=== PATIENT | male | born 1965 | race Caucasian/White ===

== ENCOUNTER → 2020-09-21 | Outpatient (CLI) | payer BC ==
--- NOTE | 2020-09-21 10:08 | XR ---
EXAMINATION TYPE: XR chest 2V DATE OF EXAM: 09/21/2020 COMPARISON: NONE HISTORY: Chest pain TECHNIQUE: Frontal and lateral views of the chest are obtained. FINDINGS: There is no focal air space opacity. No evidence for pneumothorax. No pleural effusion. The cardiac silhouette size is within normal limits. The osseous structures are grossly intact. IMPRESSION: 1. No acute cardiopulmonary process.
--- NOTE | 2020-09-22 12:27 | P.STRESS ---
- Stress Test Note Stress Test Results/Findings: Exam Performed: stress test Exam Date: 09/21/20 Reason for Exam: Shortness of breath Height: 6 ft 2 in Weight: 102.058 kg Protocol: Guillaume Stage: 4 Duration of Exercise: 9:10 Resting Heart Rate: 60 Resting Blood Pressure: 124/82 Maximum Achieved Heart Rate: 126 Maximum Achieved Blood Pressure: 212/84 85% PMHR: 140 100% PMHR: 165 METS: 10.7 Technologist Comment: Stress Test Results/Findings: Baseline heart rate 60 beats a minute, Baseline blood pressure 124/82 mmHg Baseline twelve-lead EKG showed sinus rhythm normal OR narrow QRS normal ST segments He exercised on a Guillaume protocol for 9 minutes, 10 seconds achieving a peak heart rate 126 beats a minute Hypertensive response to exercise. Peak blood pressure 241/102 mmHg He will short of breath at peak exercise No ECG and so ischemia or arrhythmia up until peak exercise In recovery he had asymmetric T-wave inversions with 0.5-[address] depression Impression Good exercise capacity Abnormal ECG response during recovery Asymmetric T-wave inversions with 0.5-[address] depression corresponds to elevations in blood pressure with exercise
== END | disposition home or self-care (01) ==
LOC: RADNMMAIN 08:22
PROVIDERS: ATTEND Family Medicine
DX: R06.02 Shortness of breath (principal)
CPT/HCPCS: 71046; 93017

== ENCOUNTER 2024-06-28 21:09 | Inpatient (IN) | payer BC ==
--- NOTE | 2024-06-28 22:03 | ED ---
Abdominal Pain HPI - General Chief Complaint: Abdominal Pain Stated Complaint: Abd Pain Time Seen by Provider: 06/28/24 21:30 Source: patient, RN notes reviewed Mode of arrival: wheelchair Limitations: no limitations - History of Present Illness Initial Comments: This is a 59-year-old male who presents to the emergency department for abdominal pain. Patient reports lower abdominal pain starting 2 to 3 days ago. States that since then the pain seems to be getting worse. States that it is in the lower abdomen and on both sides. Does not believe that one side is any worse than the other. He had some diarrhea initially, but states that it is not severe. Denies any nausea or vomiting. States that the only time he has had pain this severe was when he had kidney stones, but states that this does not feel like kidney stone pain. Denies any fevers or chills. MD Complaint: abdominal pain - Related Data Previous Rx's Medication Instructions Recorded Tamsulosin HCl [Flomax] 0.4 mg PO DAILY 30 Days cap 01/18/14 Allergies Allergy/AdvReac Type Severity Reaction Status Date / Time iodine Allergy Anaphylaxis Verified 06/28/24 21:17 shellfish derived Allergy Rash/Hives Verified 06/28/24 21:17 Review of Systems ROS Statement: Those systems with pertinent positive or pertinent negative responses have been documented in the HPI. ROS Other: All systems not noted in ROS Statement are negative. Past Medical History Past Medical History: Hypertension Additional Past Medical History / Comment(s): kidney stones History of Any Multi-Drug Resistant Organisms: None Reported Past Surgical History: Orthopedic Surgery Additional Past Surgical History / Comment(s): DENTAL, R hand surgery Past Anesthesia/Blood Transfusion Reactions: No Reported Reaction Additional Past Anesthesia/Blood Transfusion Reaction / Comment(s): never had blood transfusion Past Psychological History: No Psychological Hx Reported Smoking Status: Current every day smoker Past Alcohol Use History: Occasional Past Drug Use History: None Reported General Exam Limitations: no limitations General appearance: alert, in no apparent distress Head exam: Present: atraumatic, normocephalic, normal inspection Respiratory exam: Present: normal lung sounds bilaterally. Absent: respiratory distress, wheezes, rales, rhonchi, stridor Cardiovascular Exam: Present: regular rate, normal rhythm, normal heart sounds. Absent: systolic murmur, diastolic murmur, rubs, gallop, clicks GI/Abdominal exam: Present: soft, tenderness (Lower abdomen), normal bowel sounds. Absent: distended Neurological exam: Present: alert, oriented X3, CN II-XII intact Psychiatric exam: Present: normal affect, normal mood Skin exam: Present: warm, dry, intact, normal color. Absent: rash Course Vital Signs 06/28/24 06/28/24 06/28/24 21:13 22:12 22:47 Temperature 97.9 F 98.5 F Pulse Rate 97 96 80 Respiratory 18 18 17 Rate Blood Pressure 111/67 108/60 120/63 O2 Sat by Pulse 97 97 97 Oximetry 06/29/24 00:00 Temperature Pulse Rate 77 Respiratory 19 Rate Blood Pressure 143/77 O2 Sat by Pulse 96 Oximetry Medical Decision Making - Medical Decision Making This is a 59-year-old male who presents to the emergency department for abdominal pain. Was pt. sent in by a medical professional or institution? @ -No Did you speak to anyone other than the patient for history? @ -No Did you review nursing and triage notes? @ -Yes, and I agree, it is accurate with regards to the patient's symptoms. Were old charts reviewed? @ -No Differential Diagnosis? @ -Differential Abdominal Pain Men: Appendicitis, cholecystitis, diverticulosis, ischemic bowel, pancreatitis, hepatitis, UTI, gastroenteritis, AAA, incarcerated hernia, bowel obstruction, constipation, inflammatory bowel, hepatitis, peptic ulcer disease, splenic infarction, perforated viscus, testicular torsion, this is not meant to be an all-inclusive list EKG interpreted by me (3pts min.)? @ -EKG interpreted by me demonstrating the following: Sinus rhythm. Ventricular rate 78 bpm, ME interval 151 ms, QRS duration 126 ms, QTc 379 ms. X-rays interpreted by me (1pt min.)? @ -Not obtained CT interpreted by me (1pt min.)? @ -CT scan of the abdomen and pelvis obtained. My interpretation identifies perforated sigmoid diverticulitis U/S interpreted by me (1pt. min.)? @ -Not obtained What testing was considered but not performed? (CT, X-rays, U/S, labs)? Why? @ -None What meds were considered but not given? Why? @ -None Did you discuss the management of the patient with other professionals? @ -Yes, Dr. Vasquez, who accepts the patient for admission. Did you reconcile home meds? @ -No Was smoking cessation discussed for >3mins.? @ -No Was critical care preformed (if so, how long)? @ -No Were there social determinants of health that impacted care today? How? (Homelessness, low income, unemployed, alcoholism, drug addiction, transportation, low edu. Level, literacy, decrease access to med. care, nursing home, rehab)? @ -No Was there de-escalation of care discussed even if they declined? (Discuss DNR or withdrawal of care, Hospice)? @ -No What co-morbidities impacted this encounter? (DM, HTN, Smoking, COPD, CAD, Cancer, CVA, Hep., AIDS, mental health diagnosis, sleep apnea, morbid obesity)? @ -None Was patient admitted / discharged? @ -Admitted. Lab work demonstrates leukocytosis with a white blood cell count of 19.1 and signs of dehydration. Urinalysis negative for signs of infection. CT scan of the abdomen and pelvis demonstrates perforated sigmoid diverticulitis with moderate free air at the perforation site. Case discussed with Dr. Vasquez, general surgery, who advised admission with IV antibiotics and tentative plan for surgical intervention this morning. Blood cultures were obtained and he was started on Zosyn and Flagyl. He had been given 2 L of IV fluids initially and was started on maintenance fluids as well. Patient also kept n.p.o. in anticipation of surgical intervention. He was admitted to surgery for perforated sigmoid diverticulitis. Medicine consulted for medical management and infectious disease consulted as well. Case discussed with ED att ending Dr. Hathaway. Undiagnosed new problem with uncertain prognosis? @ -None Drug Therapy requiring intensive monitoring for toxicity (Heparin, Nitro, Insulin, Cardizem)? @ -None Were any procedures done? @ -None Diagnosis/symptom? @ -Perforated sigmoid diverticulitis Acute, or Chronic, or Acute on Chronic? @ -Acute Uncomplicated (without systemic symptoms) or Complicated (systemic symptoms)? @ -Complicated Side effects of treatment? @ -None Exacerbation, Progression, or Severe Exacerbation] @ -Not applicable Poses a threat to life or bodily function? @ -Yes, can lead to septic shock and . - Lab Data Result diagrams: 06/28/24 21:52 06/28/24 21:52 Lab Results 01/13/25 01/13/25 01/13/25 Range/Units 21:52 21:52 21:52 WBC 19.1 H (3.8-10.6) k/uL RBC 5.02 (4.30-5.90) m/uL Hgb 15.6 (13.0-17.5) gm/dL Hct 46.7 (39.0-53.0) % MCV 93.1 (80.0-100.0) fL MCH 31.0 (25.0-35.0) pg MCHC 33.3 (31.0-37.0) g/dL RDW 12.9 (11.5-15.5) % Plt Count 246 (150-450) k/uL MPV 7.2 Neutrophils % 86 % Lymphocytes % 9 % Monocytes % 4 % Eosinophils % 0 % Basophils % 0 % Neutrophils # 16.4 H (1.3-7.7) k/uL Lymphocytes # 1.6 (1.0-4.8) k/uL Monocytes # 0.7 (0-1.0) k/uL Eosinophils # 0.0 (0-0.7) k/uL Basophils # 0.1 (0-0.2) k/uL Sodium 136 L (137-145) mmol/L Potassium 4.2 (3.5-5.1) mmol/L Chloride 104 (98-107) mmol/L Carbon Dioxide 17 L (22-30) mmol/L Anion Gap 15 mmol/L BUN 27 H (9-20) mg/dL Creatinine 1.26 H (0.66-1.25) mg/dL Est GFR (CKD-EPI)AfAm 72 (>60 ml/min/1.73 sqM) Est GFR (CKD-EPI)NonAf 62 (>60 ml/min/1.73 sqM) Glucose 105 H (74-99) mg/dL Plasma Lactic Acid Quinten (0.7-2.0) mmol/L Calcium 9.7 (8.4-10.2) mg/dL Magnesium (1.6-2.3) mg/dL Total Bilirubin 1.4 H (0.2-1.3) mg/dL AST 23 (17-59) U/L ALT 28 (4-49) U/L Alkaline Phosphatase 114 (38-126) U/L Total Protein 6.9 (6.3-8.2) g/dL Albumin 4.0 (3.5-5.0) g/dL Amylase 70 (30-110) U/L Lipase 81 (23-300) U/L Urine Color Yellow Urine Appearance Cloudy (Clear) Urine pH 5.5 (5.0-8.0) Ur Specific [place] 1.037 H (1.001-1.035) Urine Protein 1+ H (Negative) Urine Glucose (UA) Negative (Negative) Urine Ketones Trace H (Negative) Urine Blood Trace H (Negative) Urine Nitrite Negative (Negative) Urine Bilirubin Negative (Negative) Urine Urobilinogen 4.0 (<2.0) mg/dL Ur Leukocyte Esterase Negative (Negative) Urine RBC 4 (0-5) /hpf Urine WBC 3 (0-5) /hpf Ur Squamous Epith Cells <1 (0-4) /hpf Hyaline Casts 10 H (0-2) /lpf Urine Mucus Many H (None) /hpf Blood Type Confirm 06/28/24 06/28/24 06/28/24 Range/Units 21:52 21:52 21:52 WBC (3.8-10.6) k/uL RBC (4.30-5.90) m/uL Hgb (13.0-17.5) gm/dL Hct (39.0-53.0) % MCV (80.0-100.0) fL MCH (25.0-35.0) pg MCHC (31.0-37.0) g/dL RDW (11.5-15.5) % Plt Count (150-450) k/uL MPV Neutrophils % % Lymphocytes % % Monocytes % % Eosinophils % % Basophils % % Neutrophils # (1.3-7.7) k/uL Lymphocytes # (1.0-4.8) k/uL Monocytes # (0-1.0) k/uL Eosinophils # (0-0.7) k/uL Basophils # (0-0.2) k/uL Sodium (137-145) mmol/L Potassium (3.5-5.1) mmol/L Chloride (98-107) mmol/L Carbon Dioxide (22-30) mmol/L Anion Gap mmol/L BUN (9-20) mg/dL Creatinine (0.66-1.25) mg/dL Est GFR (CKD-EPI)AfAm (>60 ml/min/1.73 sqM) Est GFR (CKD-EPI)NonAf (>60 ml/min/1.73 sqM) Glucose (74-99) mg/dL Plasma Lactic Acid Quinten 1.4 (0.7-2.0) mmol/L Calcium (8.4-10.2) mg/dL Magnesium 1.8 (1.6-2.3) mg/dL Total Bilirubin (0.2-1.3) mg/dL AST (17-59) U/L ALT (4-49) U/L Alkaline Phosphatase (38-126) U/L Total Protein (6.3-8.2) g/dL Albumin (3.5-5.0) g/dL Amylase (30-110) U/L Lipase (23-300) U/L Urine Color Urine Appearance (Clear) Urine pH (5.0-8.0) Ur Specific [place] (1.001-1.035) Urine Protein (Negative) Urine Glucose (UA) (Negative) Urine Ketones (Negative) Urine Blood (Negative) Urine Nitrite (Negative) Urine Bilirubin (Negative) Urine Urobilinogen (<2.0) mg/dL Ur Leukocyte Esterase (Negative) Urine RBC (0-5) /hpf Urine WBC (0-5) /hpf Ur Squamous Epith Cells (0-4) /hpf Hyaline Casts (0-2) /lpf Urine Mucus (None) /hpf Blood Type Confirm O Positive - Radiology Data Radiology results: report reviewed, image reviewed Disposition Clinical Impression: Perforated sigmoid colon, Diverticulitis of intestine with perforation Disposition: ADMITTED IP TO THIS HOSP
[2024-06-28] MEDS: KETOROLAC 15 MG/ML 1 ML VIAL IVP STA (22:05)
[2024-06-28] MEDS: SODIUM CHLORIDE 0.9% 1,000 ML IV STA (22:06)
[2024-06-28] MEDS: MORPHINE SULFATE 4 MG/ML SYRINGE IVP STA (22:06)
[2024-06-28 22:10] LABS: Basophils # (A) 0.1 k/uL (0-0.2); Basophils % (A) 0 %; Eosinophils % (A) 0 %; HCT 46.7 % (39.0-53.0); HGB 15.6 gm/dL (13.0-17.5); Lymphocytes # (A) 1.6 k/uL (1.0-4.8); Lymphocytes % (A) 9 %; MCHC 33.3 g/dL (31.0-37.0); MCV 93.1 fL (80.0-100.0); Mean Platelet Volume 7.2; Monocytes # (A) 0.7 k/uL (0-1.0); Monocytes % (A) 4 %; Neutrophils # (A) 16.4 k/uL (1.3-7.7); Neutrophils % (A) 86 %; Platelet Count 246 k/uL (150-450); RBC 5.02 m/uL (4.30-5.90); RDW 12.9 % (11.5-15.5); WBC 19.1 k/uL (3.8-10.6)
[2024-06-28 22:21] LABS: ALT 28 U/L (4-49); AST 23 U/L (17-59); African American GFR (CKD) 72 (>60 ml/min/1.73 sqM); Alkaline Phosphatase 114 U/L (38-126); Amylase 70 U/L (30-110); Anion Gap 15 mmol/L; Blood Urea Nitrogen 27 mg/dL (9-20); Calcium 9.7 mg/dL (8.4-10.2); Carbon Dioxide 17 mmol/L (22-30); Chloride 104 mmol/L (98-107); Glucose 105 mg/dL (74-99); Lipase 81 U/L (23-300); Non-African American GFR(CKD) 62 (>60 ml/min/1.73 sqM); Potassium 4.2 mmol/L (3.5-5.1); Sodium 136 mmol/L (137-145); Total Bilirubin 1.4 mg/dL (0.2-1.3); Total Protein 6.9 g/dL (6.3-8.2)
[2024-06-28 22:25] LABS: Appearance,Urine Cloudy (Clear); Bilirubin,Urine Negative (Negative); Blood,Urine Trace (Negative); Color,Urine Yellow; Glucose,Urine (UA) Negative (Negative); Hyaline Casts,Urine 10 /lpf (0-2); Ketones,Urine Trace (Negative); Leukocyte Esterase,Urine Negative (Negative); Mucus,Urine Many /hpf; Nitrite,Urine Negative (Negative); PH, Urine 5.5 (5.0-8.0); Protein,Urine 1+ (Negative); RBC,Urine 4 /hpf (0-5); Specific Gravity,Urine 1.037 (1.001-1.035); Squamous Epithelial Cell,Urine <1 /hpf (0-4); WBC,Urine 3 /hpf (0-5)
[2024-06-29] MEDS: ONDANSETRON 4 MG/2 ML VIAL IVP STA (00:11)
[2024-06-29] MEDS: HYDROmorphone 1 MG/ML 1 ML SYRINGE IVP STA (00:13)
[2024-06-29] MEDS: SODIUM CHLORIDE 0.9% 1,000 ML IV STA ×2 (00:21→02:14)
--- NOTE | 2024-06-29 00:25 | CT ---
EXAM: CT Abdomen and Pelvis Without Intravenous Contrast CLINICAL HISTORY: ITS.REASON CT Reason: Lower abdominal pain TECHNIQUE: Axial computed tomography images of the abdomen and pelvis without intravenous contrast. This CT exam was performed using one or more of the following dose reduction techniques: automated exposure control, adjustment of the mA and/or kV according to patient size, and/or use of iterative reconstruction technique. COMPARISON: No relevant prior studies available. FINDINGS: Lung bases: Unremarkable. No mass. No consolidation. ABDOMEN: Liver: Unremarkable. Gallbladder and bile ducts: Unremarkable. No calcified stones. No ductal dilation. Pancreas: Unremarkable. No ductal dilation. Spleen: Unremarkable. No splenomegaly. Adrenals: Unremarkable. No mass. Kidneys and ureters: Unremarkable. No obstructing stones. No hydronephrosis. Stomach and bowel: Perforated sigmoid diverticulitis, with location of perforation on series 202 images 47-53. Moderate free air at the perforation site. Surgical evaluation recommended. No obstruction. PELVIS: Appendix: No findings to suggest acute appendicitis. Bladder: Unremarkable. No stones. Reproductive: Unremarkable as visualized. ABDOMEN and PELVIS: Intraperitoneal space: See above. Bones/joints: No acute fracture. No dislocation. Soft tissues: Unremarkable. Vasculature: Unremarkable. No abdominal aortic aneurysm. Lymph nodes: Unremarkable. No enlarged lymph nodes. IMPRESSION: Perforated sigmoid diverticulitis, with location of perforation on series 202 images 47-53. Moderate free air at the perforation site. Surgical evaluation recommended. <MYCVCSECTION> Communications: 06/29/24 00:29 Call Doctor Regarding Other, called GERSON Estrada on 06/29 00: 28 (-05:00)
[2024-06-29] MEDS ORDERED: NALOXONE 0.4 MG/ML 1 ML VIAL IV PRN (00:37)
[2024-06-29] MEDS ORDERED: ONDANSETRON 4 MG/2 ML VIAL IVP PRN (00:37)
[2024-06-29] MEDS: metroNIDAZOLE-NS PMX 500 MG in SALINE 1 100ML.BAG IVPB SCH (02:15)
[2024-06-29 02:21] LABS: INR 1.1 (<1.2); Partial Thromboplastin Time 23.8 sec (22.0-30.0); Prothrombin Time 11.6 sec (10.0-12.5)
[2024-06-29] MEDS: PIPERACILLIN-TAZOBACTAM 3.375 GM in SODIUM CHLORIDE 0.9% 100 ML IVPB SCH (02:30)
[2024-06-29] MEDS: HYDROmorphone 1 MG/ML 1 ML SYRINGE IVP PRN (05:30)
--- NOTE | 2024-06-29 08:05 | P.GSHP ---
History of Present Illness H&P Date: 06/29/24 Chief Complaint: Severe abdominal pain This a 59-year-old male whose had a 4-day progressive complaints of abdominal pain. Patient states he started to have abdominal pain bloating and nausea last Friday. He then had some diarrhea. His pain persisted. The patient states is the worst pain of his life. Patient underwent CT scan of the abdomen. He appears to have evidence of perforated diverticulitis with moderate free air. Patient is developing signs of sepsis with white count of 19,000. Past Medical History Past Medical History: Hypertension Additional Past Medical History / Comment(s): kidney stones History of Any Multi-Drug Resistant Organisms: None Reported Past Surgical History: Orthopedic Surgery Additional Past Surgical History / Comment(s): DENTAL, R hand surgery Past Anesthesia/Blood Transfusion Reactions: No Reported Reaction Additional Past Anesthesia/Blood Transfusion Reaction / Comment(s): never had blood transfusion Past Psychological History: No Psychological Hx Reported Smoking Status: Current every day smoker Past Alcohol Use History: Occasional Past Drug Use History: None Reported Medications and Allergies Home Medications Medication Instructions Recorded Confirmed Type Lisinopril 1 tab PO BID 06/29/24 History Allergies Allergy/AdvReac Type Severity Reaction Status Date / Time iodine Allergy Anaphylaxis Verified 06/29/24 07:45 shellfish derived Allergy Rash/Hives Verified 06/29/24 07:45 Surgical - Exam Vital Signs Temp Pulse Resp BP Pulse Ox 97.9 F 97 18 111/67 97 06/28/24 21:13 06/28/24 21:13 06/28/24 21:13 06/28/24 21:13 06/28/24 21:13 - General well developed, well nourished, moderate distress - Eyes PERRL - ENT normal pinna - Neck no masses - Respiratory normal expansion - Cardiovascular Rhythm: regular - Abdomen Abdomen is mildly distended. There is significant tenderness in the lower quadrants. There is rebound and guarding on the right and left side of the lower abdomen. Results - Labs 06/28/24 21:52 06/28/24 21:52 Abnormal Lab Results - Last 24 Hours (Table) 06/28/24 06/28/24 06/28/24 Range/Units 21:52 21:52 21:52 WBC 19.1 H (3.8-10.6) k/uL Neutrophils # 16.4 H (1.3-7.7) k/uL Sodium 136 L (137-145) mmol/L Carbon Dioxide 17 L (22-30) mmol/L BUN 27 H (9-20) mg/dL Creatinine 1.26 H (0.66-1.25) mg/dL Glucose 105 H (74-99) mg/dL Total Bilirubin 1.4 H (0.2-1.3) mg/dL Ur Specific [place] 1.037 H (1.001-1.035) Urine Protein 1+ H (Negative) Urine Ketones Trace H (Negative) Urine Blood Trace H (Negative) Hyaline Casts 10 H (0-2) /lpf Urine Mucus Many H (None) /hpf Diabetes panel 06/28/24 Range/Units 21:52 Sodium 136 L (137-145) mmol/L Potassium 4.2 (3.5-5.1) mmol/L Chloride 104 (98-107) mmol/L Carbon Dioxide 17 L (22-30) mmol/L BUN 27 H (9-20) mg/dL Creatinine 1.26 H (0.66-1.25) mg/dL Glucose 105 H (74-99) mg/dL Calcium 9.7 (8.4-10.2) mg/dL AST 23 (17-59) U/L ALT 28 (4-49) U/L Alkaline Phosphatase 114 (38-126) U/L Total Protein 6.9 (6.3-8.2) g/dL Albumin 4.0 (3.5-5.0) g/dL Calcium panel 06/28/24 Range/Units 21:52 Calcium 9.7 (8.4-10.2) mg/dL Albumin 4.0 (3.5-5.0) g/dL Pituitary panel 06/28/24 Range/Units 21:52 Sodium 136 L (137-145) mmol/L Potassium 4.2 (3.5-5.1) mmol/L Chloride 104 (98-107) mmol/L Carbon Dioxide 17 L (22-30) mmol/L BUN 27 H (9-20) mg/dL Creatinine 1.26 H (0.66-1.25) mg/dL Glucose 105 H (74-99) mg/dL Calcium 9.7 (8.4-10.2) mg/dL Adrenal panel 01/13/25 Range/Units 21:52 Sodium 136 L (137-145) mmol/L Potassium 4.2 (3.5-5.1) mmol/L Chloride 104 (98-107) mmol/L Carbon Dioxide 17 L (22-30) mmol/L BUN 27 H (9-20) mg/dL Creatinine 1.26 H (0.66-1.25) mg/dL Glucose 105 H (74-99) mg/dL Calcium 9.7 (8.4-10.2) mg/dL Total Bilirubin 1.4 H (0.2-1.3) mg/dL AST 23 (17-59) U/L ALT 28 (4-49) U/L Alkaline Phosphatase 114 (38-126) U/L Total Protein 6.9 (6.3-8.2) g/dL Albumin 4.0 (3.5-5.0) g/dL - Imaging CT scan - abdomen: report reviewed (Perforated sigmoid colon with moderate free air. The bowel wall appears thickened.) Assessment and Plan Assessment: Acute diverticulitis with perforation. Patient has acute abdominal pain with rebound and guarding. His white count is 19,000. Patient will be taken to the OR today for exploratory laparotomy and sigmoid colectomy with possible colostomy.
[2024-06-29] MEDS: HYDROmorphone 0.5 MG/0.5 ML SYRINGE IVP PRN ×2 (08:49→12:38)
[2024-06-29] MEDS: PANTOPRAZOLE 40 MG/10 ML VIAL IV SCH (09:04)
[2024-06-29] MEDS: LACTATED RINGERS 500 ML IV ONE (09:15)
[2024-06-29] MEDS: DEXAMETHASONE SOD PHOSPHATE 4 MG/ML 1 ML VIAL IVP STA (09:31)
[2024-06-29] MEDS: LACTATED RINGERS 1,000 ML BAG IV STA (09:32)
[2024-06-29] MEDS: IV FLUID CONTINUATION 500 ML IV ONE (09:35)
[2024-06-29] MEDS: IV FLUID CONTINUATION 1,000 ML IV ONE (09:35)
[2024-06-29] MEDS: HEPARIN SODIUM,PORCINE 5,000 UNIT/ML 1 ML VIAL SQ STA (09:36)
--- NOTE | 2024-06-29 09:38 | P.CONS ---
Past Medical History Past Medical History: Hypertension Additional Past Medical History / Comment(s): kidney stones History of Any Multi-Drug Resistant Organisms: None Reported Past Surgical History: Orthopedic Surgery Additional Past Surgical History / Comment(s): DENTAL, R hand surgery Past Anesthesia/Blood Transfusion Reactions: No Reported Reaction Additional Past Anesthesia/Blood Transfusion Reaction / Comm: never had blood transfusion Past Psychological History: No Psychological Hx Reported Smoking Status: Current every day smoker Past Alcohol Use History: Occasional Past Drug Use History: None Reported Medications and Allergies Home Medications Medication Instructions Recorded Confirmed Type lisinopriL [Zestril] 20 mg PO BID 06/29/24 06/29/24 History Allergies Allergy/AdvReac Type Severity Reaction Status Date / Time iodine Allergy Anaphylaxis Verified 06/29/24 07:45 shellfish derived Allergy Rash/Hives Verified 06/29/24 07:45 Physical Exam Vitals: Vital Signs Temp Pulse Resp BP Pulse Ox 06/29/24 05:28 84 18 125/72 96 06/29/24 00:00 77 19 143/77 96 06/28/24 22:47 98.5 F 80 17 120/63 97 06/28/24 22:12 96 18 108/60 97 06/28/24 21:13 97.9 F 97 18 111/67 97 Intake and Output 06/28/24 06/29/24 06/29/24 22:59 06:59 14:59 Other: Weight 99.79 kg Results CBC & Chem 7: 06/28/24 21:52 06/28/24 21:52 Labs: Abnormal Lab Results - Last 24 Hours (Table) 06/28/24 06/28/24 06/28/24 Range/Units 21:52 21:52 21:52 WBC 19.1 H (3.8-10.6) k/uL Neutrophils # 16.4 H (1.3-7.7) k/uL Sodium 136 L (137-145) mmol/L Carbon Dioxide 17 L (22-30) mmol/L BUN 27 H (9-20) mg/dL Creatinine 1.26 H (0.66-1.25) mg/dL Glucose 105 H (74-99) mg/dL Total Bilirubin 1.4 H (0.2-1.3) mg/dL Ur Specific [place] 1.037 H (1.001-1.035) Urine Protein 1+ H (Negative) Urine Ketones Trace H (Negative) Urine Blood Trace H (Negative) Hyaline Casts 10 H (0-2) /lpf Urine Mucus Many H (None) /hpf
--- NOTE | 2024-06-29 09:39 | P.PN ---
Progress Note - Text Progress Note Date: 06/29/24 Attempted to see patient, not seen, in OR.
[2024-06-29] MEDS: IPRATROPIUM-ALBUTEROL 3 ML NEB INHALATION STA (09:46)
[2024-06-29] MEDS ORDERED: NEOSTIGMINE 1 MG/ML 10 ML VIAL ONE (10:49)
[2024-06-29] MEDS ORDERED: LIDOCAINE 1% INJ 10MG/ML (20 ML MDV) ONE (10:49)
[2024-06-29] MEDS ORDERED: SUCCINYLCHOLINE CHLORIDE 200 MG/10 ML VIAL IV ONE (10:49)
[2024-06-29] MEDS ORDERED: fentaNYL (PF) 50 MCG/ML 2 ML AMP ONE (10:49)
[2024-06-29] MEDS ORDERED: TRANEXAMIC 1,000 MG/100ML-NACL PREMIX BAG ONE (10:49)
[2024-06-29] MEDS ORDERED: PROPOFOL 10 MG/ML 20 ML VIAL IV ONE (10:49)
[2024-06-29] MEDS ORDERED: MIDAZOLAM 2 MG/2 ML VIAL ONE (10:49)
[2024-06-29] MEDS ORDERED: PHENYLEPHRINE-0.9% NACL SYG 1,000 MCG/10 ML SYRINGE ONE (10:49)
[2024-06-29] MEDS ORDERED: GLYCOPYRROLATE 0.2 MG/ML 2 ML VIAL ONE (10:49)
[2024-06-29] MEDS ORDERED: HYDROmorphone (PF) 1 MG/ML ONE (10:49)
[2024-06-29] MEDS ORDERED: ROCURONIUM 10 MG/ML (5 ML VIAL) IV ONE (10:49)
[2024-06-29] MEDS: SODIUM CHLORIDE 0.9% 100 ML with ceFAZolin 2,000 MG IV ONE (10:54)
[2024-06-29] MEDS: LACTATED RINGERS 1,000 ML IV ONE (11:24)
[2024-06-29] MEDS ORDERED: BENZOCAINE/MENTHOL LOZENG 1 EACH LOZENGE MUCOUS MEM PRN (12:01)
--- NOTE | 2024-06-29 12:13 | P.OP ---
Date of Procedure: 06/29/24 Preoperative Diagnosis: Perforated diverticulitis Postoperative Diagnosis: Perforated diverticulitis Procedure(s) Performed: Exploratory laparotomy Sigmoid colectomy End colostomy Anesthesia: KALEB Surgeon: Juvencio Vasquez Estimated Blood Loss (ml): 50 Pathology: other (Sigmoid colon) Condition: stable Disposition: PACU Description of Procedure: The patient was placed on the operative table in the supine position. He received general anesthesia. His abdomen was prepped and draped you sterile fashion. The abs entered through a low midline incision. Electrocautery to divide the abdominal wall. The Bookwalter tract placed the wound. The abs explored. The sigmoid colon was obviously diseased thickened there is evidence of inflammatory changes the peritoneum around the sigmoid colon. There is some purulent fluid in the pelvis. This was aspirated. At this point the sigmoid colon was reflected medially. And then the white line of Toldt was divided. The colon was then transected proximally and distally. With the SOPHIE stapler. Then using the h LigaSure device the mesentery of the bowel was divided. The specimen sent to pathology. The sigmoid colon was grossly enlarged inflamed. The abdomen is irrigated there is no bleeding seen. The colostomy is then b rought up in the left lower quadrant. The fascia was closed with looped #1 PDS suture. The colostomy is matured with 3-0 Vicryl suture. Patient tolerated procedure well. He was sent to recovery in stable condition.
[2024-06-29 14:27] LABS: Basophils % (A) 0 %; Eosinophils # (A) 0.1 k/uL (0-0.7); Eosinophils % (A) 1 %; HCT 39.4 % (39.0-53.0); Lymphocytes # (A) 0.5 k/uL (1.0-4.8); Lymphocytes % (A) 3 %; MCH 30.8 pg (25.0-35.0); MCHC 32.9 g/dL (31.0-37.0); MCV 93.6 fL (80.0-100.0); Mean Platelet Volume 7.4; Monocytes # (A) 0.5 k/uL (0-1.0); Monocytes % (A) 3 %; Neutrophils # (A) 15.2 k/uL (1.3-7.7); Neutrophils % (A) 92 %; Platelet Count 209 k/uL (150-450); RBC 4.21 m/uL (4.30-5.90); RDW 13.2 % (11.5-15.5); WBC 16.5 k/uL (3.8-10.6)
[2024-06-29] MEDS: D5-0.45% NACL WITH KCL 20MEQ/L 1,000 ML IV SCH (14:29)
[2024-06-29] MEDS: KETOROLAC 15 MG/ML 1 ML VIAL IVP PRN (14:29)
[2024-06-29 14:35] LABS: African American GFR (CKD) >90 (>60 ml/min/1.73 sqM); Anion Gap 7 mmol/L; Blood Urea Nitrogen 22 mg/dL (9-20); Carbon Dioxide 20 mmol/L (22-30); Chloride 109 mmol/L (98-107); Glucose 125 mg/dL (74-99); Non-African American GFR(CKD) 88 (>60 ml/min/1.73 sqM); Potassium 4.3 mmol/L (3.5-5.1); Sodium 136 mmol/L (137-145)
[2024-06-29] MEDS: HEPARIN SODIUM,PORCINE 5,000 UNIT/ML 1 ML VIAL SQ SCH (17:02)
--- NOTE | 2024-06-30 06:14 | P.CONS ---
History of Present Illness - Reason for Consult Consult date: 06/29/24 Perforated sigmoid diverticulitis Requesting physician: Olivia Cullen - Chief Complaint Abdominal pain x 3 days - History of Present Illness Patient is a 59-year-old male with a past medical history significant for hypertension kidney stones current everyday smokerpresenting to the hospital for evaluation of abdominal pain that has been getting worse over the last 2 to 3 days before presentation to the hospital patient pain has been in the lower abdominal area on both side patient was describing the pain to be sharp with intensity of almost 10 out of 10 with associated nausea but no vomiting denies have any diarrhea, patient denies any headache or URI symptoms no chest pain shortness of breath or cough no urinary symptoms on presentation to the hospital the patient was afebrile no fever have been recorded subsequently patient was not tachycardic hypotensive mildly hypoxic currently on a 2 L nasal cannula oxygen patient did have a white count of 19.1 with a left shift bradycardia mildly elevated subsequently normalized urine has been negative patient did have abdominal pelvis CT that him suggestive of perforated sigmoid diverticulitis did not mention any intra-abdominal abscess patient has been evaluated by general surgery taken to the OR and the patient is status post sigmoid colectomy and end colostomy there was evidence of purulent drainage in the abdomen that has been aspirated , patient was started on Zosyn infectious disease was consulted for further management of antibiotic therapy Review of Systems Positive point and negatives has been mentioned in the HPI, complete review of systems was performed and all other systems are negative Past Medical History Past Medical History: Hypertension Additional Past Medical History / Comment(s): kidney stones History of Any Multi-Drug Resistant Organisms: None Reported Past Surgical History: Orthopedic Surgery Additional Past Surgical History / Comment(s): DENTAL, R hand surgery Past Anesthesia/Blood Transfusion Reactions: No Reported Reaction Additional Past Anesthesia/Blood Transfusion Reaction / Comm: never had blood transfusion Past Psychological History: No Psychological Hx Reported Smoking Status: Current every day smoker Past Alcohol Use History: Occasional Past Drug Use History: None Reported Medications and Allergies Home Medications Medication Instructions Recorded Confirmed Type lisinopriL [Zestril] 20 mg PO BID 06/29/24 06/29/24 History Allergies Allergy/AdvReac Type Severity Reaction Status Date / Time iodine Allergy Anaphylaxis Verified 06/29/24 07:45 shellfish derived Allergy Rash/Hives Verified 06/29/24 07:45 Physical Exam Vitals: Vital Signs Temp Pulse Pulse Resp BP BP Pulse Ox 06/29/24 09:55 99.2 F 90 17 139/63 96 06/29/24 09:48 98.8 F 88 16 120/59 94 L 06/29/24 09:10 89 18 137/56 93 L 06/29/24 05:28 84 18 125/72 96 06/29/24 00:00 77 19 143/77 96 06/28/24 22:47 98.5 F 80 17 120/63 97 06/28/24 22:12 96 18 108/60 97 06/28/24 21:13 97.9 F 97 18 111/67 97 Intake and Output 06/28/24 06/29/24 06/29/24 22:59 06:59 14:59 Intake Total 1700 Balance 1700 Intake: IV 1700 Other: Weight 99.79 kg GENERAL DESCRIPTION: Middle-aged male lying in bed, no distress. No tachypnea or accessory muscle of respiration use. HEENT: Shows Pallor , no scleral icterus. Oral mucous membrane is dry. NECK: Trachea central, no thyromegaly. LUNGS: Unlabored breathing. Clear to auscultation anteriorly. No wheeze or crackle. HEART: S1, S2, regular rate and rhythm. No loud murmur ABDOMEN: Soft, lower abdominal tenderness EXTREMITIES: No edema of feet. SKIN: No rash, no masses palpable. NEUROLOGICAL: The patient is awake, alert, oriented x3, mood and affect normal. Results CBC & Chem 7: 06/29/24 14:12 06/29/24 14:12 Labs: Abnormal Lab Results - Last 24 Hours (Table) 06/28/24 06/28/24 06/28/24 Range/Units 21:52 21:52 21:52 WBC 19.1 H (3.8-10.6) k/uL Neutrophils # 16.4 H (1.3-7.7) k/uL Sodium 136 L (137-145) mmol/L Carbon Dioxide 17 L (22-30) mmol/L BUN 27 H (9-20) mg/dL Creatinine 1.26 H (0.66-1.25) mg/dL Glucose 105 H (74-99) mg/dL Total Bilirubin 1.4 H (0.2-1.3) mg/dL Ur Specific [place] 1.037 H (1.001-1.035) Urine Protein 1+ H (Negative) Urine Ketones Trace H (Negative) Urine Blood Trace H (Negative) Hyaline Casts 10 H (0-2) /lpf Urine Mucus Many H (None) /hpf Assessment and Plan (1) Intra-abdominal abscess Current Visit: Yes Status: Acute Code(s): K65.1 - PERITONEAL ABSCESS SNOMED Code(s): 69127361 (2) Leukocytosis Current Visit: Yes Status: Acute Code(s): D72.829 - ELEVATED WHITE BLOOD CELL COUNT, UNSPECIFIED SNOMED Code(s): 527747235 (3) Diverticulitis of intestine with perforation Current Visit: Yes Status: Acute Code(s): K57.80 - DVTRCLI OF INTEST, PART UNSP, W PERF AND ABSCESS W/O BLEED SNOMED Code(s): 483715756 Plan: 1patient presented to hospital with abdominal pain nausea and vomiting has been diagnosed with the perforated sigmoid diverticulitis and intra-abdominal abscess, will need to cover for the enteric gram-negative both aerobes and anaerobes in this patient who is status post laparotomy sigmoid colectomy and end colostomy 2-patient with leukocytosis likely related to the perforated sigmoid diverticulitis and will monitor closely 3-Zosyn 3.375 g every 8 hours showed provide adequate antibiotic coverage at this point empirically We will follow on clinical condition and cultures to further adjust medication if needed Thank you for this consultation we will follow the patient along with you Dictation was produced using [employer] dictation software. please excuse any grammatical, word or spelling errors. Time with Patient: Greater than 30
[2024-06-30 08:47] LABS: Basophils % (A) 0 %; Eosinophils % (A) 0 %; HCT 36.2 % (39.0-53.0); HGB 11.9 gm/dL (13.0-17.5); Lymphocytes # (A) 0.9 k/uL (1.0-4.8); Lymphocytes % (A) 7 %; MCH 31.3 pg (25.0-35.0); MCHC 32.9 g/dL (31.0-37.0); MCV 95.2 fL (80.0-100.0); Mean Platelet Volume 8.4; Monocytes # (A) 0.4 k/uL (0-1.0); Monocytes % (A) 3 %; Neutrophils # (A) 11.8 k/uL (1.3-7.7); Neutrophils % (A) 89 %; Platelet Count 189 k/uL (150-450); RDW 13.4 % (11.5-15.5); WBC 13.3 k/uL (3.8-10.6)
[2024-06-30 08:59] LABS: African American GFR (CKD) >90 (>60 ml/min/1.73 sqM); Anion Gap 5 mmol/L; Blood Urea Nitrogen 23 mg/dL (9-20); Carbon Dioxide 25 mmol/L (22-30); Chloride 105 mmol/L (98-107); Glucose 125 mg/dL (74-99); Non-African American GFR(CKD) 80 (>60 ml/min/1.73 sqM); Potassium 4.7 mmol/L (3.5-5.1); Sodium 135 mmol/L (137-145)
--- NOTE | 2024-06-30 13:04 | P.PN ---
Subjective Progress Note Date: 06/30/24 SURGICAL PROGRESS NOTE CHIEF COMPLAINT: Perforated diverticulitis HISTORY OF PRESENT ILLNESS: Patient is postop day #1 status post exploratory laparotomy, sigmoid colectomy and end colostomy. His pain is controlled. He had nausea earlier that has improved. He denies any vomiting. Patient reports having air in his ostomy bag urine output is adequate. Afebrile. WBC is down from 16.5-13.3 Hgb 11.9 sodium 135 potassium 4.7 creatinine 1.02 PHYSICAL EXAM: VITAL SIGNS: Reviewed. GENERAL: Well-developed in no acute distress. ABDOMEN: Soft. Mildly distended. Prevena wound VAC dressing is intact. Ostomy stoma is pink. Small amount of air noted in the colostomy bag NEUROLOGIC: Alert and oriented. Cranial nerves II through XII grossly intact. ASSESSMENT: 1. Perforated diverticulitis PLAN: -Continue antibiotics -Continue pain management -Continue clear liquid diet -Encourage patient to increase activity level -Encourage patient to use incentive spirometer -Latham catheter to be removed tomorrow -GI prophylaxis Protonix and DVT prophylaxis subcu heparin Physician Costume Shop Coordinator note has been reviewed by physician. Signing provider agrees with the documented findings, assessment, and plan of care. Objective - Vital Signs Vital signs: Vital Signs Temp 97.8 F 06/30/24 08:16 Pulse 61 06/30/24 08:16 Resp 18 06/30/24 08:16 BP 123/65 06/30/24 08:16 Pulse Ox 98 06/30/24 08:16 FiO2 Intake & Output 06/29/24 06/30/24 06/30/24 18:59 06:59 18:59 Intake Total 2700 Output Total 750 950 Balance 1950 -950 Weight 99.79 kg Intake: IV 2700 Output: Urine 700 950 Estimated Blood Loss 50 Other: Voiding Method Indwelling Catheter # Voids 1 - Labs CBC & Chem 7: 06/30/24 08:02 06/30/24 08:02 Labs: Abnormal Lab Results - Last 24 Hours (Table) 06/29/24 06/29/24 06/30/24 Range/Units 14:12 14:12 08:02 WBC 16.5 H 13.3 H (3.8-10.6) k/uL RBC 4.21 L 3.80 L (4.30-5.90) m/uL Hgb 11.9 L (13.0-17.5) gm/dL Hct 36.2 L (39.0-53.0) % Neutrophils # 15.2 H 11.8 H (1.3-7.7) k/uL Lymphocytes # 0.5 L 0.9 L (1.0-4.8) k/uL Sodium 136 L (137-145) mmol/L Chloride 109 H (98-107) mmol/L Carbon Dioxide 20 L (22-30) mmol/L BUN 22 H (9-20) mg/dL Glucose 125 H (74-99) mg/dL 06/30/24 Range/Units 08:02 WBC (3.8-10.6) k/uL RBC (4.30-5.90) m/uL Hgb (13.0-17.5) gm/dL Hct (39.0-53.0) % Neutrophils # (1.3-7.7) k/uL Lymphocytes # (1.0-4.8) k/uL Sodium 135 L (137-145) mmol/L Chloride (98-107) mmol/L Carbon Dioxide (22-30) mmol/L BUN 23 H (9-20) mg/dL Glucose 125 H (74-99) mg/dL Microbiology - Last 24 Hours (Table) 06/29/24 01:45 Blood Culture - Preliminary Blood
--- NOTE | 2024-06-30 17:54 | P.CONS ---
History of Present Illness - Reason for Consult Consult date: 06/30/24 Medical manage Requesting physician: Juvencio Vaqsuez - Chief Complaint Progressive abdominal pain ,perforated sigmoid diverticulitis - History of Present Illness 06/29/2024 Attempted to see patient, not seen, in OR. 06/30/2024 this is a 59-year-old gentleman status post exploratory laparotomy sigmoid colectomy with end colostomy. Reports pain controlled on current regimen of Dilaudid, Toradol. Denies nausea or vomiting. Tolerating clear liquid diet passing flatus. Maintained on IV fluids of D5 and a half with 20 mEq of KCl at 125 mL an hour, Flagyl IV piggyback and Zosyn. Afebrile, WBC 13.3, patient received Decadron IV yesterday. Preliminary blood cultures rep orting no growth. hemoglobin 11.9, platelets 189, sodium 135, potassium 4.7, bicarb 25, BUN 23, creatinine 1.02. Blood sugars controlled in the 120s. Review of Systems ROS Statement: Those systems with pertinent positive or pertinent negative responses have been documented in the HPI. ROS Other: All systems not noted in ROS Statement are negative. Past Medical History Past Medical History: Hypertension Additional Past Medical History / Comment(s): kidney stones History of Any Multi-Drug Resistant Organisms: None Reported Past Surgical History: Orthopedic Surgery Additional Past Surgical History / Comment(s): DENTAL, R hand surgery Past Anesthesia/Blood Transfusion Reactions: No Reported Reaction Additional Past Anesthesia/Blood Transfusion Reaction / Comm: never had blood transfusion Past Psychological History: No Psychological Hx Reported Smoking Status: Current every day smoker Past Alcohol Use History: Occasional Past Drug Use History: None Reported Medications and Allergies Home Medications Medication Instructions Recorded Confirmed Type lisinopriL [Zestril] 20 mg PO BID 06/29/24 06/29/24 History Allergies Allergy/AdvReac Type Severity Reaction Status Date / Time iodine Allergy Anaphylaxis Verified 06/29/24 07:45 shellfish derived Allergy Rash/Hives Verified 06/29/24 07:45 Physical Exam Vitals: Vital Signs Temp Pulse Pulse Resp BP Pulse Ox 06/30/24 08:16 97.8 F 61 18 123/65 98 06/30/24 06:01 66 18 110/65 06/30/24 01:19 97.5 F L 65 16 96/55 98 06/29/24 16:22 96 06/29/24 16:02 67 118/68 96 06/29/24 15:47 66 121/67 96 06/29/24 15:32 70 120/71 96 06/29/24 15:15 71 130/66 95 06/29/24 15:00 66 130/69 94 L 06/29/24 13:25 85 14 114/53 97 06/29/24 13:10 91 18 125/60 95 06/29/24 12:55 92 20 140/59 91 L 06/29/24 12:40 103 H 20 135/61 92 L 06/29/24 12:25 93 16 154/82 95 06/29/24 12:10 98.3 F 91 16 179/87 97 Intake and Output 06/29/24 06/30/24 06/30/24 22:59 06:59 14:59 Output Total 950 Balance -950 Output: Urine 950 Other: Voiding Method Indwelling Catheter # Voids 1 PHYSICAL EXAM: VITAL SIGNS: [Reviewed] GENERAL: Alert and oriented x 3, sitting up in bed, no acute distress HEENT: Normocephalic, atraumatic conjunctivae normal. eyes normal. MMM. NECK: Supple, no JVD. CARDIOVASCULAR: S1, S2 regular. No murmur RESPIRATION: Unlabored, equal air entry, breath sounds diminished in the bases. No rhonchi or crackles. No bronchial breathing. ABDOMEN: Soft, mild distended, status post surgery, tender below umbilicus across bilateral lower quads, prevana wound VAC dressing clean dry and intact, ostomy bag with flatus, no guarding. no masses palpable. No ascites, No hepatosplenomegaly.Bowel sounds heard. LEGS: No edema. no swelling, no cyanosis, no clubbing, positive DP pulse PSYCHIATRY: Alert and oriented X3, mood and affect normal. NERVOUS SYSTEM: Cranial N 2-12 grossly normal.No focal deficits. Skin: Warm and dry, no rash noted. Results CBC & Chem 7: 06/30/24 08:02 06/30/24 08:02 Labs: Abnormal Lab Results - Last 24 Hours (Table) 06/29/24 06/29/24 06/30/24 Range/Units 14:12 14:12 08:02 WBC 16.5 H 13.3 H (3.8-10.6) k/uL RBC 4.21 L 3.80 L (4.30-5.90) m/uL Hgb 11.9 L (13.0-17.5) gm/dL Hct 36.2 L (39.0-53.0) % Neutrophils # 15.2 H 11.8 H (1.3-7.7) k/uL Lymphocytes # 0.5 L 0.9 L (1.0-4.8) k/uL Sodium 136 L (137-145) mmol/L Chloride 109 H (98-107) mmol/L Carbon Dioxide 20 L (22-30) mmol/L BUN 22 H (9-20) mg/dL Glucose 125 H (74-99) mg/dL 06/30/24 Range/Units 08:02 WBC (3.8-10.6) k/uL RBC (4.30-5.90) m/uL Hgb (13.0-17.5) gm/dL Hct (39.0-53.0) % Neutrophils # (1.3-7.7) k/uL Lymphocytes # (1.0-4.8) k/uL Sodium 135 L (137-145) mmol/L Chloride (98-107) mmol/L Carbon Dioxide (22-30) mmol/L BUN 23 H (9-20) mg/dL Glucose 125 H (74-99) mg/dL Assessment and Plan Assessment: Perforated diverticulitis, status post exploratory laparotomy, sigmoid colectomy and end colostomy Leukocytosis, suspect related to the above. Hypertension Ongoing nicotine dependence Plan: Continue on current medication resume ,monitoring and symptomatic treatment. Pain management, DVT prophylaxis as per primary. Pulmonary toileting with incentive spirometer reinforced. Smoking cessation reinforced with nicotine patch ordered. Antibiotics as per ID close monitoring of renal function with repeat labs ordered for a.m. continue monitoring cultures. Increase activity as tolerated. The impression and plan of care has been dictated as directed. : I performed a history and examination of this patient, discussed the same with the dictator. I agree with the dictator's note ,documented as a scribe. Any additional findings or plans will be noted.
[2024-06-30] MEDS: NICOTINE 21MG/24HR PATCH TRANSDERM SCH (20:08)
[2024-07-01 09:04] LABS: RBC 3.76 X 10*6/uL (4.40-5.60)
[2024-07-01 09:05] LABS: Basophils # (A) 0.01 X 10*3/uL (0.00-0.10); Basophils % (A) 0.1 %; Eosinophils # (A) 0.13 X 10*3/uL (0.04-0.35); Eosinophils % (A) 1.2 %; HCT 35.6 % (39.6-50.0); HGB 11.4 g/dL (13.0-17.0); Lymphocytes # (A) 1.52 X 10*3/uL (0.90-5.00); Lymphocytes % (A) 13.7 %; MCH 30.3 pg (27.0-32.0); MCV 94.7 FL (80.0-97.0); Mean Platelet Volume 11.1 FL (9.5-12.2); Monocytes # (A) 0.53 X 10*3/uL (0.20-1.00); Monocytes % (A) 4.8 %; NRBC Per 100 WBC 0 X 10*3/uL (0.00-0.01); Neutrophils # (A) 8.84 X 10*3/uL (1.80-7.70); Neutrophils % (A) 79.6 %; Platelet Count 222 X 10*3/uL (140-440); RDW 13.2 % (11.5-14.5)
[2024-07-01 09:13] LABS: BUN/Creat Ratio 22.64 Ratio (12.00-20.00); Blood Urea Nitrogen 24.9 mg/dL (9.0-27.0); Calcium 8.5 mg/dL (8.7-10.3); Carbon Dioxide 22.6 mmol/L (21.6-31.8); Chloride 106 mmol/L (96-109); Glucose 104 mg/dL (70-110); Potassium 4.3 mmol/L (3.5-5.5); Sodium 137 mmol/L (135-145)
[2024-07-01] MEDS ORDERED: LORazepam 1 MG TAB PO PRN (14:33)
--- NOTE | 2024-07-01 14:35 | P.PN ---
Subjective Progress Note Date: 07/01/24 SURGICAL PROGRESS NOTE CHIEF COMPLAINT: Perforated diverticulitis HISTORY OF PRESENT ILLNESS: Patient is postop day #2 status post exploratory laparotomy, sigmoid colectomy and end colostomy. Patient slept for a longer period during the night. And got behind on his pain medication. He had a little more pain this morning. He did have some nausea this has improved. He is having a small amount of stool through his ostomy. Afebrile. WBC is down from 16.5-13.3. Latham catheter removed. Patient urinating without difficulty. PHYSICAL EXAM: VITAL SIGNS: Reviewed. GENERAL: Well-developed in no acute distress. ABDOMEN: Soft. Mildly distended. Prevena wound VAC dressing is intact. Ostomy stoma is pink. Small amount of stool and air noted in ostomy bag NEUROLOGIC: Alert and oriented. Cranial nerves II through XII grossly intact. ASSESSMENT: 1. Perforated diverticulitis PLAN: -Ostomy teaching today. -Advance diet to full liquids -[place] added for oral pain medication -Ativan added as needed for sleep -Encourage patient to ambulate -Encourage patient to use incentive spirometer -Continue antibiotics -Anticipate discharge possibly tomorrow -Continue antibiotics -GI prophylaxis Protonix and DVT prophylaxis subcu heparin Physician Agriscience Instructor note has been reviewed by physician. Signing provider agrees with the documented findings, assessment, and plan of care. Objective - Vital Signs Vital signs: Vital Signs Temp 97.9 F 07/01/24 07:30 Pulse 68 07/01/24 07:40 Resp 17 07/01/24 07:40 BP 162/77 07/01/24 07:30 Pulse Ox 96 07/01/24 07:30 FiO2 Intake & Output 06/30/24 07/01/24 07/01/24 18:59 06:59 18:59 Output Total 250 Balance -250 Output: Urine 250 Other: Voiding Method Indwelling Catheter Urinal # Voids 1 1 - Labs CBC & Chem 7: 07/01/24 04:28 07/01/24 04:28 Labs: Abnormal Lab Results - Last 24 Hours (Table) 07/01/24 07/01/24 Range/Units 04:28 04:28 WBC 11.10 H (4.50-10.00) X 10*3/uL RBC 3.76 L (4.40-5.60) X 10*6/uL Hgb 11.4 L (13.0-17.0) g/dL Hct 35.6 L (39.6-50.0) % Immature Gran # 0.07 H (0.00-0.04) X 10*3/uL Neutrophils # 8.84 H (1.80-7.70) X 10*3/uL BUN/Creatinine Ratio 22.64 H (12.00-20.00) Ratio Calcium 8.5 L (8.7-10.3) mg/dL Microbiology - Last 24 Hours (Table) 06/29/24 01:45 Blood Culture - Preliminary Blood
[2024-07-01] MEDS: ACETAMINOPHEN TAB 325 MG TAB PO PRN (14:55)
--- NOTE | 2024-07-01 15:36 | P.PN ---
Subjective Progress Note Date: 06/30/24 Principal diagnosis: Reason for follow-up is perforated diverticulitis and leukocytosis Patient is a 59-year-old male with a past medical history significant for hypertension kidney stones current everyday smokerpresenting to the hospital for evaluation of abdominal pain, patient has been diagnosed with perforated diverticulitis status post laparotomy sigmoid colectomy and colostomy. On today's evaluation that is 06/30/2024,the patient denies any fever or any chi lls, patient is breathing comfortably on room air, the patient denies chest pain shortness of breath and no significant cough, patient abdominal pain has decreased in intensity, no nausea vomiting. Patient white count is down to 13.3 creatinine 1.02 Objective - Vital Signs Vital signs: Vital Signs Temp 97.8 F 06/30/24 08:16 Pulse 61 06/30/24 08:16 Resp 18 06/30/24 08:16 BP 123/65 06/30/24 08:16 Pulse Ox 98 06/30/24 08:16 FiO2 Intake & Output 06/29/24 06/30/24 06/30/24 18:59 06:59 18:59 Intake Total 2700 Output Total 750 950 Balance 1950 -950 Weight 99.79 kg Intake: IV 2700 Output: Urine 700 950 Estimated Blood Loss 50 Other: Voiding Method Indwelling Catheter # Voids 1 - Exam GENERAL DESCRIPTION: Middle-age male lying in bed in no distress RESPIRATORY SYSTEM: Unlabored breathing , decreased breath sounds at bases HEART: S1 S2 regular rate and rhythm , ABDOMEN: Soft , no tenderness EXTREMITIES: No edema feet - Labs CBC & Chem 7: 07/01/24 04:28 07/01/24 04:28 Labs: Abnormal Lab Results - Last 24 Hours (Table) 06/29/24 06/29/24 06/30/24 Range/Units 14:12 14:12 08:02 WBC 16.5 H 13.3 H (3.8-10.6) k/uL RBC 4.21 L 3.80 L (4.30-5.90) m/uL Hgb 11.9 L (13.0-17.5) gm/dL Hct 36.2 L (39.0-53.0) % Neutrophils # 15.2 H 11.8 H (1.3-7.7) k/uL Lymphocytes # 0.5 L 0.9 L (1.0-4.8) k/uL Sodium 136 L (137-145) mmol/L Chloride 109 H (98-107) mmol/L Carbon Dioxide 20 L (22-30) mmol/L BUN 22 H (9-20) mg/dL Glucose 125 H (74-99) mg/dL 06/30/24 Range/Units 08:02 WBC (3.8-10.6) k/uL RBC (4.30-5.90) m/uL Hgb (13.0-17.5) gm/dL Hct (39.0-53.0) % Neutrophils # (1.3-7.7) k/uL Lymphocytes # (1.0-4.8) k/uL Sodium 135 L (137-145) mmol/L Chloride (98-107) mmol/L Carbon Dioxide (22-30) mmol/L BUN 23 H (9-20) mg/dL Glucose 125 H (74-99) mg/dL Assessment and Plan (1) Intra-abdominal abscess Current Visit: Yes Status: Acute Code(s): K65.1 - PERITONEAL ABSCESS SNOMED Code(s): 00958916 (2) Leukocytosis Current Visit: Yes Status: Acute Code(s): D72.829 - ELEVATED WHITE BLOOD CELL COUNT, UNSPECIFIED SNOMED Code(s): 736020674 (3) Diverticulitis of intestine with perforation Current Visit: Yes Status: Acute Code(s): K57.80 - DVTRCLI OF INTEST, PART UNSP, W PERF AND ABSCESS W/O BLEED SNOMED Code(s): 535642895 Plan: 1patient presented to hospital with abdominal pain nausea and vomiting has been diagnosed with the perforated sigmoid diverticulitis and intra-abdominal abscess, will need to cover for the enteric gram-negative both aerobes and anaerobes in this patient who is status post laparotomy sigmoid colectomy and end colostomy 2-patient with leukocytosis likely related to the perforated sigmoid diverticulitis which is trending down 3-patient is currently being treated Zosyn 3.375 g every 8 hours and monitor clinical course closely Dictation was produced using [employer] dictation software. please excuse any grammatical, word or spelling errors. Time with Patient: Less than 30
--- NOTE | 2024-07-01 15:37 | P.PN ---
Subjective Progress Note Date: 07/01/24 Principal diagnosis: Reason for follow-up is perforated diverticulitis and leukocytosis Patient is a 59-year-old male with a past medical history significant for hypertension kidney stones current everyday smokerpresenting to the hospital for evaluation of abdominal pain, patient has been diagnosed with perforated diverticulitis status post laparotomy sigmoid colectomy and colostomy. On today's evaluation that is 07/01/2024,the patient remains to be afebrile, pat ient is on room air not requiring supplemental oxygen and denies any shortness of breath no chest pain or cough.Patient denies having any nausea or vomiting, abdominal pain is currently controlled and did have some output in the colostomy. Patient white count is 11.10 creatinine is 1.1 Objective - Vital Signs Vital signs: Vital Signs Temp 97.9 F 07/01/24 07:30 Pulse 68 07/01/24 07:40 Resp 17 07/01/24 07:40 BP 162/77 07/01/24 07:30 Pulse Ox 96 07/01/24 07:30 FiO2 Intake & Output 06/30/24 07/01/24 07/01/24 18:59 06:59 18:59 Output Total 250 Balance -250 Output: Urine 250 Other: Voiding Method Indwelling Catheter Urinal # Voids 1 1 - Exam GENERAL DESCRIPTION: Middle-age male lying in bed in no distress RESPIRATORY SYSTEM: Unlabored breathing , decreased breath sounds at bases HEART: S1 S2 regular rate and rhythm , ABDOMEN: Soft , no tenderness EXTREMITIES: No edema feet - Labs CBC & Chem 7: 07/01/24 04:28 07/01/24 04:28 Labs: Abnormal Lab Results - Last 24 Hours (Table) 07/01/24 07/01/24 Range/Units 04:28 04:28 WBC 11.10 H (4.50-10.00) X 10*3/uL RBC 3.76 L (4.40-5.60) X 10*6/uL Hgb 11.4 L (13.0-17.0) g/dL Hct 35.6 L (39.6-50.0) % Immature Gran # 0.07 H (0.00-0.04) X 10*3/uL Neutrophils # 8.84 H (1.80-7.70) X 10*3/uL BUN/Creatinine Ratio 22.64 H (12.00-20.00) Ratio Calcium 8.5 L (8.7-10.3) mg/dL Microbiology - Last 24 Hours (Table) 06/29/24 01:45 Blood Culture - Preliminary Blood Assessment and Plan (1) Intra-abdominal abscess Current Visit: Yes Status: Acute Code(s): K65.1 - PERITONEAL ABSCESS SNOMED Code(s): 47872478 (2) Leukocytosis Current Visit: Yes Status: Acute Code(s): D72.829 - ELEVATED WHITE BLOOD CELL COUNT, UNSPECIFIED SNOMED Code(s): 428727241 (3) Diverticulitis of intestine with perforation Current Visit: Yes Status: Acute Code(s): K57.80 - DVTRCLI OF INTEST, PART UNSP, W PERF AND ABSCESS W/O BLEED SNOMED Code(s): 679449600 Plan: 1patient presented to hospital with abdominal pain nausea and vomiting has been diagnosed with the perforated sigmoid diverticulitis and intra-abdominal abscess, will need to cover for the enteric gram-negative both aerobes and anaerobes in this patient who is status post laparotomy sigmoid colectomy and end colostomy 2-patient with leukocytosis likely related to the perforated sigmoid diverticulitis which is trending down 3-patient pointed out, continue Zosyn 3.375 g every 8 hours will transition to oral antibiotics on discharge when cleared by surgery Dictation was produced using [employer] dictation software. please excuse any grammatical, word or spelling errors. Time with Patient: Less than 30
--- NOTE | 2024-07-01 16:08 | P.PN ---
Subjective Progress Note Date: 07/01/24 - History of Present Illness 06/29/2024 Attempted to see patient, not seen, in OR. 06/30/2024 this is a 59-year-old gentleman status post exploratory laparotomy sigmoid colectomy with end colostomy. Reports pain controlled on current regimen of Dilaudid, Toradol. Denies nausea or vomiting. Tolerating clear liquid diet passing flatus. Maintained on IV fluids of D5 and a half with 20 mEq of KCl at 125 mL an hour, Flagyl IV piggyback and Zosyn. Afebrile, WBC 13.3, patient received Decadron IV yesterday. Preliminary blood cultures reporting no growth. hemoglobin 11.9, platelets 189, sodium 135, potassium 4.7, bicarb 25, BUN 23, creatinine 1.02. Blood sugars controlled in the 120s. 07/01/24 reports he slept better, had a good night. Reports pain is currently controlled but that when he falls asleep, gets behind on his pain medication and wakes up in pain. Pain management currently IV push Dilaudid. tolerating clear liquid diet, denies nausea or vomiting. Maintained on IV fluid hydration, Flagyl and Zosyn.ambulating, tolerating exertion well. Afebrile, WBC trending down, 11.1. Preliminary blood cultures reporting no growth at 48 hours. Spontaneously voiding. Creatinine 1.1. Hemoglobin 11.4, platelets 222. Objective - Vital Signs Vital signs: Vital Signs Temp 97.9 F 07/01/24 07:30 Pulse 68 07/01/24 07:40 Resp 17 07/01/24 07:40 BP 162/77 07/01/24 07:30 Pulse Ox 96 07/01/24 07:30 FiO2 Intake & Output 06/30/24 07/01/24 07/01/24 18:59 06:59 18:59 Output Total 250 Balance -250 Output: Urine 250 Other: Voiding Method Indwelling Catheter Urinal # Voids 1 1 - Exam PHYSICAL EXAM: VITAL SIGNS: [Reviewed] GENERAL: Alert and oriented x 3, sitting up in bed, no acute distress HEENT: Normocephalic, atraumatic conjunctivae normal. eyes normal. MMM. NECK: Supple, no JVD. CARDIOVASCULAR: S1, S2 regular. No murmur. RESPIRATION: Unlabored, equal air entry, breath sounds diminished in the bases. ABDOMEN: Soft, mild distended, status post surgery, tender below umbilicus across bilateral lower quads, prevana wound VAC dressing clean dry and intact, ostomy bag with minimal output, no guarding. +BS. LEGS: No edema. no swelling, no cyanosis, no clubbing, positive DP pulse NERVOUS SYSTEM: Cranial N 2-12 grossly normal.No focal deficits. Skin: Warm and dry, no rash noted. - Labs CBC & Chem 7: 07/01/24 04:28 07/01/24 04:28 Labs: Abnormal Lab Results - Last 24 Hours (Table) 07/01/24 07/01/24 Range/Units 04:28 04:28 WBC 11.10 H (4.50-10.00) X 10*3/uL RBC 3.76 L (4.40-5.60) X 10*6/uL Hgb 11.4 L (13.0-17.0) g/dL Hct 35.6 L (39.6-50.0) % Immature Gran # 0.07 H (0.00-0.04) X 10*3/uL Neutrophils # 8.84 H (1.80-7.70) X 10*3/uL BUN/Creatinine Ratio 22.64 H (12.00-20.00) Ratio Calcium 8.5 L (8.7-10.3) mg/dL Microbiology - Last 24 Hours (Table) 06/29/24 01:45 Blood Culture - Preliminary Blood Assessment and Plan Assessment: Perforated diverticulitis, status post exploratory laparotomy, sigmoid colectomy and end colostomy Leukocytosis, suspect related to the above. Hypertension Ongoing nicotine dependence Plan: Continue on current medication resume ,monitoring and symptomatic treatment. Pain management-transitioning to oral , diet advancement as per general surgery. Increase activity as tolerated .pulmonary toileting with incentive spirometer reinforced. Smoking cessation reinforced. Maintain antibiotics as per ID. Discharge planning in progress for tomorrow as per primary. Follow-up with PCP in 1 week. The impression and plan of care has been dictated as directed. : I performed a history and examination of this patient, discussed the same with the dictator. I agree with the dictator's note ,documented as a scribe. Any additional findings or plans will be noted.
[2024-07-02 09:30] LABS: Basophils % (A) 0 %; Eosinophils % (A) 0 %; HCT 37.8 % (39.0-53.0); HGB 12.3 gm/dL (13.0-17.5); Lymphocytes # (A) 1.3 k/uL (1.0-4.8); Lymphocytes % (A) 15 %; MCH 30.9 pg (25.0-35.0); MCHC 32.5 g/dL (31.0-37.0); MCV 95.1 fL (80.0-100.0); Mean Platelet Volume 7.8; Monocytes # (A) 0.6 k/uL (0-1.0); Monocytes % (A) 7 %; Neutrophils # (A) 6.5 k/uL (1.3-7.7); Neutrophils % (A) 74 %; Platelet Count 285 k/uL (150-450); RBC 3.98 m/uL (4.30-5.90); RDW 13.3 % (11.5-15.5); WBC 8.7 k/uL (3.8-10.6)
[2024-07-02] MEDS: HYDROcodone/APAP 5-325MG 1 EACH TAB PO PRN (11:04)
--- NOTE | 2024-07-02 12:36 | P.PN ---
Subjective Progress Note Date: 07/02/24 SURGICAL PROGRESS NOTE CHIEF COMPLAINT: Perforated diverticulitis HISTORY OF PRESENT ILLNESS: Patient is postop day #3 status post exploratory laparotomy, sigmoid colectomy and end colostomy. Patient has not tried the oral pain medication yet. He was afraid to take it on an empty stomach. Patient is still requiring the IV pain medication. His ostomy is functioning. He had ostomy teaching yesterday. Afebrile. WBC is down from 11-8.7 Hgb 12.3 platelets 285 PHYSICAL EXAM: VITAL SIGNS: Reviewed. GENERAL: Well-developed in no acute distress. ABDOMEN: Soft. Mild tenderness at incision site. Prevena wound VAC dressing is intact. Ostomy is functioning NEUROLOGIC: Alert and oriented. Cranial nerves II through XII grossly intact. ASSESSMENT: 1. Perforated diverticulitis PLAN: -Continue pain management. Encourage patient to take the [place] -Advance diet to regular -Patient to shower today -Encourage patient to ambulate in the hallway 4 times a day -Continue antibiotics -Possible discharge over the weekend if patient is feeling better otherwise plan for discharge on Friday. -GI prophylaxis Protonix and DVT prophylaxis subcu heparin Physician Laboratory Administrative Director note has been reviewed by physician. Signing provider agrees with the documented findings, assessment, and plan of care. Objective - Vital Signs Vital signs: Vital Signs Temp 97.8 F 07/02/24 07:30 Pulse 68 07/02/24 07:30 Resp 17 07/02/24 07:30 BP 167/70 07/02/24 07:30 Pulse Ox 96 07/02/24 07:30 FiO2 Intake & Output 07/01/24 07/02/24 07/02/24 18:59 06:59 18:59 Other: Voiding Method Urinal Urinal # Voids 2 - Labs CBC & Chem 7: 07/02/24 09:07 07/01/24 04:28 Labs: Abnormal Lab Results - Last 24 Hours (Table) 07/02/24 Range/Units 09:07 RBC 3.98 L (4.30-5.90) m/uL Hgb 12.3 L (13.0-17.5) gm/dL Hct 37.8 L (39.0-53.0) % Microbiology - Last 24 Hours (Table) 06/29/24 01:45 Blood Culture - Preliminary Blood
--- NOTE | 2024-07-02 13:14 | P.PN ---
Subjective Progress Note Date: 07/02/24 - History of Present Illness 06/29/2024 Attempted to see patient, not seen, in OR. 06/30/2024 this is a 59-year-old gentleman status post exploratory laparotomy sigmoid colectomy with end colostomy. Reports pain controlled on current regimen of Dilaudid, Toradol. Denies nausea or vomiting. Tolerating clear liquid diet passing flatus. Maintained on IV fluids of D5 and a half with 20 mEq of KCl at 125 mL an hour, Flagyl IV piggyback and Zosyn. Afebrile, WBC 13.3, patient received Decadron IV yesterday. Preliminary blood cultures reporting no growth. hemoglobin 11.9, platelets 189, sodium 135, potassium 4.7, bicarb 25, BUN 23, creatinine 1.02. Blood sugars controlled in the 120s. 07/01/24 reports he slept better, had a good night. Reports pain is currently controlled but that when he falls asleep, gets behind on his pain medication and wakes up in pain. Pain management currently IV push Dilaudid. tolerating clear liquid diet, denies nausea or vomiting. Maintained on IV fluid hydration, Flagyl and Zosyn.ambulating, tolerating exertion well. Afebrile, WBC trending down, 11.1. Preliminary blood cultures reporting no growth at 48 hours. Spontaneously voiding. Creatinine 1.1. Hemoglobin 11.4, platelets 222. 07/02/2024 pain management :oral pain medication initiated yesterday but patient declined-weary of taking it on empty stomach, continued on IV pain medication. Ostomy teaching yesterday. Denies chest pain, palpitations or shortness of breath. Maintaining O2 sats in the mid to high 90s on room air. Afebrile, WBC has normalized, 8.7. Hemoglobin 12.3, platelets 285. Objective - Vital Signs Vital signs: Vital Signs Temp 97.8 F 07/02/24 07:30 Pulse 68 07/02/24 07:30 Resp 17 07/02/24 07:30 BP 167/70 07/02/24 07:30 Pulse Ox 96 07/02/24 07:30 FiO2 Intake & Output 07/01/24 07/02/24 07/02/24 18:59 06:59 18:59 Other: Voiding Method Urinal Urinal # Voids 2 - Exam PHYSICAL EXAM: VITAL SIGNS: [Reviewed] GENERAL: Alert and oriented x 3, sitting up in bed, no acute distress HEENT: Normocephalic, atraumatic conjunctivae normal. eyes normal. MMM. NECK: Supple, no JVD. CARDIOVASCULAR: S1, S2 regular. No murmur. RESPIRATION: Unlabored, equal air entry, fine expiratory wheeze ,breath sounds diminished in the bases. ABDOMEN: Soft, mild distended, status post surgery, bilateral lower quadrant tenderness, prevana wound VAC dressing clean dry and intact, functioning ostomy , no guarding. +BS. LEGS: No edema. no swelling, no cyanosis, no clubbing, positive DP pulse NERVOUS SYSTEM: Cranial N 2-12 grossly normal.No focal deficits. Skin: Warm and dry, no rash noted. - Labs CBC & Chem 7: 07/02/24 09:07 07/01/24 04:28 Labs: Abnormal Lab Results - Last 24 Hours (Table) 07/02/24 Range/Units 09:07 RBC 3.98 L (4.30-5.90) m/uL Hgb 12.3 L (13.0-17.5) gm/dL Hct 37.8 L (39.0-53.0) % Microbiology - Last 24 Hours (Table) 06/29/24 01:45 Blood Culture - Preliminary Blood Assessment and Plan Assessment: Perforated diverticulitis, status post exploratory laparotomy, sigmoid colectomy and end colostomy Postoperative atelectasis, expected outcome Leukocytosis, suspect related to the above, resolved. Hypertension Ongoing nicotine dependence Plan: Continue on current medication resume ,monitoring and symptomatic treatment. Oral pain management reinforced. further diet advancement as per general surgery. Increase protein. stay out of bed except to nap; sit up in chair, increase activity as tolerated .aggressive pulmonary toileting with incentive spirometer reinforced. Smoking cessation reinforced. DC antibiotic recommendations noted per ID. Discharge planning in progress for tomorrow as per primary. Follow-up with PCP in 1 week. The impression and plan of care has been dictated as directed. : I performed a history and examination of this patient, discussed the same with the dictator. I agree with the dictator's note ,documented as a scribe. Any additional findings or plans will be noted.
--- NOTE | 2024-07-02 22:54 | P.PN ---
Subjective Progress Note Date: 07/02/24 Principal diagnosis: Reason for follow-up is perforated diverticulitis and leukocytosis Patient is a 59-year-old male with a past medical history significant for hypertension kidney stones current everyday smokerpresenting to the hospital for evaluation of abdominal pain, patient has been diagnosed with perforated diverticulitis status post laparotomy sigmoid colectomy and colostomy. On today's evaluation that is 07/02/2024, the patient continues to be afebrile, the patient is on room air and breathing comfortably, the Pt denies having any chest pain or cough, the patient abdominal pain has decreased in intensity and controlled, no vomiting tolerating his food and did have output in his colostomy. Patient white count normalized to 8.7 creatinine is 1.1 blood culture negative Objective - Vital Signs Vital signs: Vital Signs Temp 98.6 F 07/02/24 13:05 Pulse 63 07/02/24 13:05 Resp 17 07/02/24 13:05 BP 155/74 07/02/24 13:05 Pulse Ox 98 07/02/24 13:05 FiO2 Intake & Output 07/01/24 07/02/24 07/02/24 18:59 06:59 18:59 Other: Voiding Method Urinal Urinal # Voids 2 - Exam GENERAL DESCRIPTION: Middle-age male lying in bed in no distress RESPIRATORY SYSTEM: Unlabored breathing , decreased breath sounds at bases HEART: S1 S2 regular rate and rhythm , ABDOMEN: Soft , no tenderness EXTREMITIES: No edema feet - Labs CBC & Chem 7: 07/02/24 09:07 07/01/24 04:28 Labs: Abnormal Lab Results - Last 24 Hours (Table) 07/02/24 Range/Units 09:07 RBC 3.98 L (4.30-5.90) m/uL Hgb 12.3 L (13.0-17.5) gm/dL Hct 37.8 L (39.0-53.0) % Microbiology - Last 24 Hours (Table) 06/29/24 01:45 Blood Culture - Preliminary Blood Assessment and Plan (1) Intra-abdominal abscess Current Visit: Yes Status: Acute Code(s): K65.1 - PERITONEAL ABSCESS SNOMED Code(s): 16029262 (2) Leukocytosis Current Visit: Yes Status: Acute Code(s): D72.829 - ELEVATED WHITE BLOOD CELL COUNT, UNSPECIFIED SNOMED Code(s): 340766724 (3) Diverticulitis of intestine with perforation Current Visit: Yes Status: Acute Code(s): K57.80 - DVTRCLI OF INTEST, PART UNSP, W PERF AND ABSCESS W/O BLEED SNOMED Code(s): 950618910 Plan: 1patient presented to hospital with abdominal pain nausea and vomiting has been diagnosed with the perforated sigmoid diverticulitis and intra-abdominal abscess, will need to cover for the enteric gram-negative both aerobes and anaerobes in this patient who is status post laparotomy sigmoid colectomy and end colostomy 2-patient with leukocytosis likely related to the perforated sigmoid diverticulitis which has normalized as of 07/02/2024 3-patient has shown clinical vomiting continue e Zosyn 3.375 g every 8 hours will transition to oral Ceftin and Flagyl x 10 days on discharge discussed with CREATIVE SERVICES PRODUCER for surgery Dictation was produced using [employer] dictation software. please excuse any grammatical, word or spelling errors. Time with Patient: Less than 30
--- NOTE | 2024-07-03 14:12 | P.PN ---
Subjective this is a 59-year-old gentleman with past medical history of multiple medical problems including hypertension and kidney stone Patient presents originally because of abdominal pain secondary to perforated diverticulitis seen on CAT scan of the abdomen on 06/28. The x-ray on 06/29 patient underwent exploratory laparotomy and sigmoid colectomy and end colostomy by surgery team. Patient seen lying in bed looks comfortable. He tolerates diet well, abdominal pain is minimal and controlled, his left lower quadrant colostomy bag is working. No active bleeding. No other new complaint. No chest pain or dyspnea. No headache dizziness or urinary complaints Patient blood pressure slightly elevated, he was on lisinopril 20 mg twice daily. We are going to resume at 20 mg once daily With close monitoring Today patient is doing better, he is asking about when he will go home. Family member at bedside likely he can go home soon Patient denies any other new complaints He is hemodynamically stable. Afebrile Labs reviewed showing WBC 8.[address] of the abdomen and pelvis on admission showing perforated sigmoid diverticulitis was reviewed Currently patient on Zosyn and Flagyl Objective - Vital Signs Vital signs: Vital Signs Temp 98.4 F 07/03/24 13:33 Pulse 69 07/03/24 13:33 Resp 16 07/03/24 13:33 BP 146/65 07/03/24 13:33 Pulse Ox 96 07/03/24 13:33 FiO2 Intake & Output 07/02/24 07/03/24 07/03/24 18:59 06:59 18:59 Other: Voiding Method Toilet # Voids 1 - Exam GENERAL: The patient is alert and oriented x3, not in any acute distress. Well developed, well nourished. HEENT: Pupils are round and equally reacting to light. EOMI. No scleral icterus. No conjunctival pallor. Normocephalic, atraumatic. No pharyngeal erythema. No thyromegaly. CARDIOVASCULAR: S1 and S2 present. No murmurs, rubs, or gallops. PULMONARY: Chest is clear to auscultation, no wheezing , no crackles. -ABDOMEN: Soft, nontender, nondistended, normoactive bowel sounds. No palpable organomegaly. Left lower quadrant colostomy. Vertical midline surgical wound is closed with dressing in place. Rest of exam is deferred to surgery team MUSCULOSKELETAL: No joint swelling or deformity. EXTREMITIES: No cyanosis, clubbing, or pedal edema. NEUROLOGICAL: Gross neurological examination did not reveal any focal deficits. SKIN: No rashes. no petechiae. - Labs CBC & Chem 7: 07/02/24 09:07 07/01/24 04:28 Labs: Microbiology - Last 24 Hours (Table) 06/29/24 01:45 Blood Culture - Preliminary Blood Assessment and Plan Assessment: Acute perforated diverticulitis with intra-abdominal infection. On 06/29 with sigmoid colectomy and end colostomy Mild chronic anemia hypertension Kidney stone Plan: Continue with postop care Pain management Encourage early mobility Continue with antibiotic as per ID team, currently on Zosyn and Flagyl Monitor labs and vitals Further recommendation based on the clinical course GI prophylaxis DVT prophylaxis: Subcutaneous heparin Thank you for consulting us Upon discharge we recommend patient follow-up with PCP Dr. Stover/Migel Hodge in 1 week and he agrees
--- NOTE | 2024-07-03 14:21 | P.PN ---
Subjective Progress Note Date: 07/03/24 Principal diagnosis: Reason for follow-up is perforated diverticulitis and leukocytosis Patient is a 59-year-old male with a past medical history significant for hypertension kidney stones current everyday smokerpresenting to the hospital for evaluation of abdominal pain, patient has been diagnosed with perforated diverticulitis status post laparotomy sigmoid colectomy and colostomy. On today's evaluation that is 07/03/2024, patient did not have any fever and den ies any chills, patient is breathing comfortably on room air, patient with no chest pain or cough patient abdominal pain is currently controlled tolerating his diet did however upon his colostomy. No new labs were obtained today blood culture has been negative Objective - Vital Signs Vital signs: Vital Signs Temp 98.3 F 07/03/24 07:11 Pulse 58 L 07/03/24 07:11 Resp 16 07/03/24 07:11 BP 143/76 07/03/24 07:11 Pulse Ox 96 07/03/24 07:11 FiO2 Intake & Output 07/02/24 07/03/24 07/03/24 18:59 06:59 18:59 Other: Voiding Method Toilet # Voids 1 - Exam GENERAL DESCRIPTION: Middle-age male lying in bed in no distress RESPIRATORY SYSTEM: Unlabored breathing , decreased breath sounds at bases HEART: S1 S2 regular rate and rhythm , ABDOMEN: Soft , no tenderness EXTREMITIES: No edema feet - Labs CBC & Chem 7: 07/02/24 09:07 07/01/24 04:28 Labs: Microbiology - Last 24 Hours (Table) 06/29/24 01:45 Blood Culture - Preliminary Blood Assessment and Plan (1) Intra-abdominal abscess Current Visit: Yes Status: Acute Code(s): K65.1 - PERITONEAL ABSCESS SNOMED Code(s): 43675507 (2) Leukocytosis Current Visit: Yes Status: Acute Code(s): D72.829 - ELEVATED WHITE BLOOD CELL COUNT, UNSPECIFIED SNOMED Code(s): 612631592 (3) Diverticulitis of intestine with perforation Current Visit: Yes Status: Acute Code(s): K57.80 - DVTRCLI OF INTEST, PART UNSP, W PERF AND ABSCESS W/O BLEED SNOMED Code(s): 890369030 Plan: 1patient presented to hospital with abdominal pain nausea and vomiting has been diagnosed with the perforated sigmoid diverticulitis and intra-abdominal abscess, will need to cover for the enteric gram-negative both aerobes and anaerobes in this patient who is status post laparotomy sigmoid colectomy and end colostomy 2-patient with leukocytosis likely related to the perforated sigmoid diverticulitis which has normalized as of 07/02/2024 3-patient has shown clinical improvement on Zosyn 3.375 g every 8 hours, finishing therapy with Ceftin and Flagyl x 10 days prescription has already been sent Dictation was produced using [employer] dictation software. please excuse any grammatical, word or spelling errors. Time with Patient: Less than 30
--- NOTE | 2024-07-03 15:28 | P.PN ---
Subjective Progress Note Date: 07/03/24 CHIEF COMPLAINT: Perforated diverticulitis HISTORY OF PRESENT ILLNESS: The patient is a 59-year-old male who presents with perforated diverticulitis. Patient is status post colectomy. He has flatus. Patient is eager to go home. He is tolerating diet. ROS: No reports of nausea and vomiting. No fevers or chills. No new chest pain. No productive sputum PHYSICAL EXAM: VITAL SIGNS: Reviewed CONSTITUTIONAL: Well developed and in no acute distress. EYES: Conjuctivae without sclera icterus. Extraocular movements grossly intact. HEAD, EARS, NOSE, THROAT: Moist buccal mucosa. Head is atraumatic, normocephalic. Hears conversational speech. No nasal drainage. RESPIRATORY: Non-labored respirations and equal bilateral excursions. CARDIOVASCULAR: Palpable 2+ radial pulses. ABDOMEN: Midline incision intact with incisional wound VAC system. Ostomy with stool and flatus. MUSCULOSKELETAL: No gross deformity of the lower extremities noted. No clubbing. No cyanosis. SKIN: Good skin turgor. Well perfused. NEUROLOGIC: Cranial nerves II through XII grossly intact. No focal or lateraliz ing signs. PSYCH: Appropriate affect. Alert and oriented to person, place and time. CLINICAL LABS: Reviewed. WBC normal from 07/02/2024 ASSESSMENT: 1. Perforated complicated diverticulitis. PLAN: 1. Patient's medications were sent to the wrong pharmacy and he does not have his antibiotics. Continue IV antibiotics in the interim pending availability of oral antibiotics 2. Pain medication adjusted to schedule Tylenol and Toradol including scheduled simethicone for adequate pain control. 3. Nonnarcotic pain medication including antibiotics redirected to patient's appropriate pharmacy 4. Adjust diet to high-protein Premier protein 30 g 3 times daily for optimal recovery and nutrition Objective - Vital Signs Vital signs: Vital Signs Temp 98.4 F 07/03/24 13:33 Pulse 69 07/03/24 13:33 Resp 16 07/03/24 13:33 BP 146/65 07/03/24 13:33 Pulse Ox 96 07/03/24 13:33 FiO2 Intake & Output 07/02/24 07/03/24 07/03/24 18:59 06:59 18:59 Other: Voiding Method Toilet # Voids 1 - Labs CBC & Chem 7: 07/02/24 09:07 07/01/24 04:28 Labs: Microbiology - Last 24 Hours (Table) 06/29/24 01:45 Blood Culture - Preliminary Blood
[2024-07-03] MEDS: KETOROLAC 15 MG/ML 1 ML VIAL IVP SCH (16:16)
[2024-07-03] MEDS: lisinopriL 20 MG TAB PO SCH (16:17)
[2024-07-03] MEDS: SIMETHICONE 80 MG CHEWABLE PO SCH (16:18)
[2024-07-03] MEDS: ACETAMINOPHEN TAB 500 MG TAB PO SCH (18:41)
[2024-07-04 07:39] VITALS: BP 150/74; PULSE 54; RESP 18; TEMP 97.8
--- NOTE | 2024-07-04 12:59 | P.PN ---
Subjective this is a 59-year-old gentleman with past medical history of multiple medical problems including hypertension and kidney stone Patient presents originally because of abdominal pain secondary to perforated diverticulitis seen on CAT scan of the abdomen on 06/28. The x-ray on 06/29 patient underwent exploratory laparotomy and sigmoid colectomy and end colostomy by surgery team. Patient seen lying in bed looks comfortable. He tolerates diet well, abdominal pain is minimal and controlled, his left lower quadrant colostomy bag is working. No active bleeding. No other new complaint. No chest pain or dyspnea. No headache dizziness or urinary complaints Patient blood pressure slightly elevated, he was on lisinopril 20 mg twice daily. We are going to resume at 20 mg once daily With close monitoring Today patient is doing better, he is asking about when he will go home. Family member at bedside likely he can go home soon Patient denies any other new complaints He is hemodynamically stable. Afebrile Labs reviewed showing WBC 8.[address] of the abdomen and pelvis on admission showing perforated sigmoid diverticulitis was reviewed Currently patient on Zosyn and Flagyl 07/04 Patient is standing at bedside States his abdominal pain is controlled He is having 1-2 bowel movement through his left lower quadrant colostomy bag He has good appetite but he does not like the hospital food He was concerned about swelling in his scrotum but here declined to do examination stating that it is improved and also he denies any pain. Patient instructed to follow-up with urologist and he does not think he needs to. No chest pain dyspnea No other new complaint Objective - Vital Signs Vital signs: Vital Signs Temp 97.8 F 07/04/24 07:08 Pulse 54 L 07/04/24 07:08 Resp 18 07/04/24 07:08 BP 150/74 07/04/24 07:08 Pulse Ox 96 07/04/24 07:08 FiO2 Intake & Output 07/03/24 07/04/24 07/04/24 18:59 06:59 18:59 Other: Voiding Method Toilet - Exam GENERAL: The patient is alert and oriented x3, not in any acute distress. Well developed, well nourished. HEENT: Pupils are round and equally reacting to light. EOMI. No scleral icterus. No conjunctival pallor. Normocephalic, atraumatic. No pharyngeal erythema. No thyromegaly. CARDIOVASCULAR: S1 and S2 present. No murmurs, rubs, or gallops. PULMONARY: Chest is clear to auscultation, no wheezing , no crackles. -ABDOMEN: Soft, nontender, nondistended, normoactive bowel sounds. No palpable organomegaly. Left lower quadrant colostomy. Vertical midline surgical wound is closed with dressing in place. Rest of exam is deferred to surgery team MUSCULOSKELETAL: No joint swelling or deformity. EXTREMITIES: No cyanosis, clubbing, or pedal edema. NEUROLOGICAL: Gross neurological examination did not reveal any focal deficits. SKIN: No rashes. no petechiae. - Labs CBC & Chem 7: 07/02/24 09:07 07/01/24 04:28 Assessment and Plan Assessment: Acute perforated diverticulitis with intra-abdominal infection. On 06/29 with sigmoid colectomy and end colostomy Mild chronic anemia hypertension Kidney stone Plan: Continue with postop care Pain management Encourage early mobility Continue with antibiotic as per ID team, currently on Zosyn and Flagyl Monitor labs and vitals Further recommendation based on the clinical course GI prophylaxis DVT prophylaxis: Subcutaneous heparin Thank you for consulting us Upon discharge we recommend patient follow-up with PCP Dr. Stover/Migel Hodge in 1 week and he agrees
--- NOTE | 2024-07-04 13:47 | P.DS ---
Providers Date of admission: 06/29/24 00:51 Expected date of discharge: 07/04/24 Attending physician: Juvencio Vasquez Consults: 06/29/24 00:37 Consult Physician Urgent Consulting Provider: Arden Stover Consult Reason/Comments: Medical management Do you want consulting provider notified?: Yes 06/29/24 01:05 Consult Physician Urgent Consulting Provider: Talita Leung Consult Reason/Comments: Perforated sigmoid diverticulitis Do you want consulting provider notified?: Yes Primary care physician: Ayesha Lainez [facility] Course: CHIEF COMPLAINT: Perforated diverticulitis HISTORY OF PRESENT ILLNESS: The patient is a 59-year-old male who presented with perforated diverticulitis. He underwent sigmoid colectomy with colostomy creation. Overnight, patient was placed on nonnarcotic scheduled pain management reports moderate improvement of pain control. All outpatient antibiotics including medications were confirmed and present with his at bedside. Overall, patient is doing well and ready for discharge. ROS: No reports of nausea and vomiting. No fevers or chills. No new chest pain. No productive sputum PHYSICAL EXAM: VITAL SIGNS: Reviewed CONSTITUTIONAL: Well developed and in no acute distress. EYES: Conjuctivae without sclera icterus. Extraocular movements grossly intact. HEAD, EARS, NOSE, THROAT: Moist buccal mucosa. Head is atraumatic, no rmocephalic. Hears conversational speech. No nasal drainage. RESPIRATORY: Non-labored respirations and equal bilateral excursions. CARDIOVASCULAR: Palpable 2+ radial pulses. ABDOMEN: Midline incision intact with incisional wound VAC system. Ostomy with stool and flatus. MUSCULOSKELETAL: No gross deformity of the lower extremities noted. No clubbing. No cyanosis. SKIN: Good skin turgor. Well perfused. NEUROLOGIC: Cranial nerves II through XII grossly intact. No focal or lateralizing signs. PSYCH: Appropriate affect. Alert and oriented to person, place and time. CLINICAL LABS: Reviewed. WBC normal from 07/02/2024 ASSESSMENT: 1. Perforated complicated diverticulitis. PLAN: 1. Stable for discharge. Follow-up with index surgeon within a week. Patient Condition at Discharge: Good Plan - Discharge Summary New Discharge Prescriptions: New Ibuprofen [Motrin] 600 mg PO Q8HR PRN #30 tab PRN Reason: Pain cefuroxime axetiL [Ceftin] 500 mg PO BID 10 Days #20 tab metroNIDAZOLE [Flagyl] 500 mg PO TID #30 tab Ibuprofen [Motrin] 600 mg PO Q8HR PRN #30 tab PRN Reason: Pain HYDROcodone/APAP 5-325MG [[place] 5-325] 1 tab PO Q6HR PRN 3 Days #12 tab PRN Reason: Pain metroNIDAZOLE [Flagyl] 500 mg PO TID 10 Days #30 tab cefuroxime axetiL [Ceftin] 500 mg PO BID #20 tab Simethicone 40 mg/0.6 ml Drops [Mylicon Drops] 40 mg PO Q6HR PRN #30 ml PRN Reason: Abdominal Distention Acetaminophen Tab [Tylenol Tab] 1,000 mg PO Q6HR PRN #30 tablet PRN Reason: Pain Continue lisinopriL [Zestril] 20 mg PO BID Discharge Medication List lisinopriL [Zestril] 20 mg PO BID 06/29/24 [History] HYDROcodone/APAP 5-325MG [[place] 5-325] 1 tab PO Q6HR PRN 3 Days #12 tab 07/02/24 [Rx] Ibuprofen [Motrin] 600 mg PO Q8HR PRN #30 tab 07/02/24 [Rx] cefuroxime axetiL [Ceftin] 500 mg PO BID 10 Days #20 tab 07/02/24 [Rx] metroNIDAZOLE [Flagyl] 500 mg PO TID 10 Days #30 tab 07/02/24 [Rx] Acetaminophen Tab [Tylenol Tab] 1,000 mg PO Q6HR PRN #30 tablet 07/03/24 [Rx] Ibuprofen [Motrin] 600 mg PO Q8HR PRN #30 tab 07/03/24 [Rx] Simethicone 40 mg/0.6 ml Drops [Mylicon Drops] 40 mg PO Q6HR PRN #30 ml 07/03/24 [Rx] cefuroxime axetiL [Ceftin] 500 mg PO BID #20 tab 07/03/24 [Rx] metroNIDAZOLE [Flagyl] 500 mg PO TID #30 tab 07/03/24 [Rx] Follow up Appointment(s)/Referral(s): Ayesha Lainez DO [Primary Care Provider] - 1-2 days Juvencio Vasquez MD [STAFF PHYSICIAN] - 1 Week Activity/Diet/Wound Care/Special Instructions: Ostomy: Bhargavi one piece cut to fit #[id number]. Change every 3 to 5 days and as needed for leaks; empty when half full Last changed: 07/01/[address] while taking [place] No lifting over 10 pounds Shower daily. No soaking or tub baths for 2 weeks Very light activity until you are reevaluated at your follow up appointment with your surgeon
--- NOTE | 2024-07-04 15:07 | P.PN ---
Subjective Progress Note Date: 07/04/24 Principal diagnosis: Reason for follow-up is perforated diverticulitis and leukocytosis Patient is a 59-year-old male with a past medical history significant for hypertension kidney stones current everyday smokerpresenting to the hospital for evaluation of abdominal pain, patient has been diagnosed with perforated diverticulitis status post laparotomy sigmoid colectomy and colostomy. On today's evaluation that is 07/04/2024, Patient is afebrile patient is current ly on room air and denies having any shortness of breath, the patient denies any chest pain or cough, the patient denies any nausea vomiting did not have any abdominal pain and did have output in his colostomy. No new lab has been repeated today Objective - Vital Signs Vital signs: Vital Signs Temp 97.8 F 07/04/24 07:08 Pulse 54 L 07/04/24 07:08 Resp 18 07/04/24 07:08 BP 150/74 07/04/24 07:08 Pulse Ox 96 07/04/24 07:08 FiO2 Intake & Output 07/03/24 07/04/24 07/04/24 18:59 06:59 18:59 Other: Voiding Method Toilet - Exam GENERAL DESCRIPTION: Middle-age male lying in bed in no distress RESPIRATORY SYSTEM: Unlabored breathing , decreased breath sounds at bases HEART: S1 S2 regular rate and rhythm , ABDOMEN: Soft , no tenderness EXTREMITIES: No edema feet - Labs CBC & Chem 7: 07/02/24 09:07 07/01/24 04:28 Labs: Microbiology - Last 24 Hours (Table) 06/29/24 01:45 Blood Culture - Final Blood Assessment and Plan (1) Intra-abdominal abscess Status: Acute Code(s): K65.1 - PERITONEAL ABSCESS SNOMED Code(s): 04404365 (2) Leukocytosis Status: Acute Code(s): D72.829 - ELEVATED WHITE BLOOD CELL COUNT, UNSPECIFIED SNOMED Code(s): 195404737 (3) Diverticulitis of intestine with perforation Status: Acute Code(s): K57.80 - DVTRCLI OF INTEST, PART UNSP, W PERF AND ABSCESS W/O BLEED SNOMED Code(s): 617389124 Plan: 1patient presented to hospital with abdominal pain nausea and vomiting has been diagnosed with the perforated sigmoid diverticulitis and intra-abdominal abscess, will need to cover for the enteric gram-negative both aerobes and anaerobes in this patient who is status post laparotomy sigmoid colectomy and end colostomy 2-patient with leukocytosis likely related to the perforated sigmoid diverticulitis which has normalized as of 07/02/2024 3-patient has shown clinical improvement , plan is to finish therapy with Ceftin and Flagyl x 10 days and close outpatient follow-up Dictation was produced using [employer] dictation software. please excuse any grammatical, word or spelling errors. Time with Patient: Less than 30
--- NOTE | 2024-07-08 11:13 | CDI ---
Documentation Clarification Form Date: 07/08/2024 10:29:47 AM From: Heather Arias RN, CCDS Email: [email or web address] Admit Date: 06/29/2024 12:51:00 AM Patient Name: Juan Guerin Visit Number: [id number] Discharge Date: 07/04/2024 03:00:00 PM ATTENTION: The Clinical Documentation Specialists (CDI) and [facility] Coding Staff appreciate your assistance in clarifying documentation. Please respond to the clarification below the line at the bottom and electronically sign. The CDI & [facility] Coding staff will review the response and follow-up if needed. Please note: Queries are made part of the Legal Health Record. If you have any questions, please contact the author of this message via ITS. Doctor Juvencio Vasquez The patient had perforated diverticulitis. Based on this information and the findings below, is there an additional diagnosis that is clinically appropriate for this patient? Patient history/risk factors: HTN. Presented with severe abdominal pain, nausea and bloating. Admitted with acute diverticulitis with perforation. S/P sigmoid colectomy and end colostomy. Clinical Indicators: 06/29 CT A/P: Perforated sigmoid diverticulitis 06/29 H&P: "There is rebound and guarding on the right and left side of the lower abdomen. His white count is 19,000. Patient will be taken to the OR today for exploratory laparotomy and sigmoid colectomy with possible colostomy." 06/29 Procedure note: "The sigmoid colon was obviously diseased thickened there is evidence of inflammatory changes the peritoneum around the sigmoid colon. There is some purulent fluid in the pelvis. This was aspirated." Treatment: S/P sigmoid colectomy and end colostomy; IV Flagyl 500mg Q8H 06/29- 07/04; IV Zosyn 3.375gm Q8H Is there an additional diagnosis that is clinically appropriate for this patient? [ x ] Pelvic peritonitis [ ] No additional diagnosis/Not clinically significant [ ] Unable to determine [ ] Other, please specify MTDD
--- NOTE | 2024-07-08 11:36 | CDI ---
Documentation Clarification Form Date: 07/08/2024 11:31:47 AM From: Heather Arias RN, CCDS Email: [email or web address] Admit Date: 06/29/2024 12:51:00 AM Patient Name: Juan Guerin Visit Number: [id number] Discharge Date: 07/04/2024 03:00:00 PM ATTENTION: The Clinical Documentation Specialists (CDI) and [facility] Coding Staff appreciate your assistance in clarifying documentation. Please respond to the clarification below the line at the bottom and electronically sign. The CDI & [facility] Coding staff will review the response and follow-up if needed. Please note: Queries are made part of the Legal Health Record. If you have any questions, please contact the author of this message via ITS. Doctor Arden Stover The patient had an elevated Cr at admission. Based on this information and the findings below, is there an additional diagnosis that is clinically appropriate for this patient? Patient history/risk factors: HTN. Presented with severe abdominal pain, nausea and bloating. Admitted with acute diverticulitis with perforation. S/P sigmoid colectomy and end colostomy. Clinical Indicators: 06/28-07/01 Cr: 1.26-0.95-1.02-1.1 06/28-07/01 BUN: 27-22-23-24.9 06/28 ED: "Lab work demonstrates leukocytosis with a white blood cell count of 19.1 and signs of dehydration." 06/30 IM consult: "Antibiotics as per ID, close monitoring of renal function with repeat labs ordered for a.m. Continue monitoring cultures." Treatment: Monitor renal function; 1L 0.9 NS IV bolus x1 on 06/28 and 06/29 then 130mL/hr 06/29-06/30 Is there an additional diagnosis that is clinically appropriate for this patient? [ X ] Acute Kidney Injury due to dehydration [ ] No additional diagnosis/Not clinically significant [ ] Unable to determine [ ] Other, please specify Reference: KDIGO VINCE Criteria An increase in serum creatinine by greater than or equal to 0.3 mg/dL within 48 hours; An increase in serum creatinine by greater than or equal to 1.5 times baseline, which is known or presumed to have occurred within the prior 7 days; A urine volume less than 0.5 ml/kg/h for 6 hours. When the baseline is unknown the lowest creatinine during admission assumed to be baseline MTDD
== END 2024-07-04 15:00 | disposition home health service (06) | DRG 329 ==
LOC: EC 21:09 → 4SSUR 06-29 00:51
PROVIDERS: ADMIT Surgery; ATTEND Surgery
PROC: 0D1N0Z4 Bypass Sigmoid Colon to Cutaneous, Open Approach (ICD-10-PCS; 2024-06-29)
PROC: 0DBN0ZZ Excision of Sigmoid Colon, Open Approach (ICD-10-PCS; principal; 2024-06-29 15:40)
DX: K57.20 Diverticulitis of large intestine with perforation and abscess without bleeding (principal); K65.0 Generalized (acute) peritonitis; K65.1 Peritoneal abscess; I10 Essential (primary) hypertension; F17.210 Nicotine dependence, cigarettes, uncomplicated; N20.0 Calculus of kidney; Z79.899 Other long term (current) drug therapy
CPT/HCPCS: 36415; 74176; 80048; 80053; 81001; 82150; 83605; 83690; 83735; 85025; 85610; 85730; 86850; 86900; 86901; 87040; 88307; 93005; 94760; 96361; 96372; 96374; 96375; 96376; 99285

== ENCOUNTER 2024-07-15 13:00 | Observation (INO) | payer BC ==
[2024-07-15] MEDS: SODIUM CHLORIDE 0.9% 500 ML 500 ML IV STA (13:39)
[2024-07-15] MEDS: MORPHINE SULFATE 4 MG/ML SYRINGE IV STA (13:42)
[2024-07-15] MEDS: diphenhydrAMINE 50 MG/ML 1 ML VIAL IVP STA (13:42)
[2024-07-15] MEDS: FAMOTIDINE 20 MG/2 ML VIAL IV STA (13:43)
[2024-07-15] MEDS: methylPREDNISolone SOD SUCCI 125 MG/2 ML VIAL IV STA (13:43)
[2024-07-15 14:00] LABS: Basophils # (A) 0.1 k/uL (0-0.2); Basophils % (A) 0 %; Eosinophils % (A) 0 %; HCT 47.7 % (39.0-53.0); Lymphocytes % (A) 14 %; MCH 30.7 pg (25.0-35.0); MCHC 32.6 g/dL (31.0-37.0); MCV 94.1 fL (80.0-100.0); Mean Platelet Volume 7.2; Monocytes # (A) 0.8 k/uL (0-1.0); Monocytes % (A) 6 %; Neutrophils # (A) 10.9 k/uL (1.3-7.7); Neutrophils % (A) 78 %; Platelet Count 422 k/uL (150-450); RBC 5.07 m/uL (4.30-5.90); RDW 13.4 % (11.5-15.5)
--- NOTE | 2024-07-15 14:03 | ED ---
General Adult HPI - General Chief complaint: Chest Pain Stated complaint: Chest Pn Time Seen by Provider: 07/15/24 13:05 Source: patient Mode of arrival: wheelchair Limitations: no limitations - History of Present Illness Initial comments: 59-year-old male who presents emergency department reporting pleuritic chest pain. States that the pain started last night and worsened today. It is located over the right chest wall and is worse with deep inspiration. Patient feels short of breath. Denies fevers or productive cough. Denies history of cardiac disease. Does admit to recent hospitalization with surgery from the through the . Patient was on heparin shots throughout his stay but denies being on any anticoagulation once he got home. Patient did admit to having some left calf pain but this was on Friday and has subsequently gone away. He denies history of DVT or PE. No numbness, tingling or weakness in his extremities. No other alleviating, precipitating or modifying factors - Related Data Home Medications Medication Instructions Recorded Confirmed lisinopriL [Zestril] 20 mg PO BID 06/29/24 07/15/24 Previous Rx's Medication Instructions Recorded Ibuprofen [Motrin] 600 mg PO Q8HR PRN #30 tab 07/02/24 Acetaminophen Tab [Tylenol Tab] 1,000 mg PO Q6HR PRN #30 tablet 07/03/24 Simethicone 40 mg/0.6 ml Drops 40 mg PO Q6HR PRN #30 ml 07/03/24 [Mylicon Drops] Allergies Allergy/AdvReac Type Severity Reaction Status Date / Time iodine Allergy Anaphylaxis Verified 07/15/24 14:54 shellfish derived Allergy Rash/Hives Verified 07/15/24 14:54 Review of Systems ROS Statement: Those systems with pertinent positive or pertinent negative responses have been documented in the HPI. ROS Other: All systems not noted in ROS Statement are negative. Past Medical History Past Medical History: Hypertension Additional Past Medical History / Comment(s): kidney stones History of Any Multi-Drug Resistant Organisms: None Reported Past Surgical History: Bowel Resection, Orthopedic Surgery Additional Past Surgical History / Comment(s): DENTAL, R hand surgery. colostomy Past Anesthesia/Blood Transfusion Reactions: No Reported Reaction Additional Past Anesthesia/Blood Transfusion Reaction / Comment(s): never had blood transfusion Past Psychological History: No Psychological Hx Reported Smoking Status: Current every day smoker Past Alcohol Use History: Occasional Past Drug Use History: None Reported General Exam Limitations: no limitations General appearance: alert, in no apparent distress Head exam: Present: atraumatic, normocephalic, normal inspection Eye exam: Present: normal appearance, PERRL, EOMI. Absent: scleral icterus, conjunctival injection, periorbital swelling ENT exam: Present: normal exam, mucous membranes moist Neck exam: Present: normal inspection. Absent: tenderness, meningismus, lymphadenopathy Respiratory exam: Present: normal lung sounds bilaterally. Absent: respiratory distress, wheezes, rales, rhonchi, stridor Cardiovascular Exam: Present: regular rate, normal rhythm, normal heart sounds. Absent: systolic murmur, diastolic murmur, rubs, gallop, clicks GI/Abdominal exam: Present: soft, normal bowel sounds. Absent: distended, tenderness, guarding, rebound, rigid Extremities exam: Present: normal inspection, full ROM, normal capillary refill. Absent: tenderness, pedal edema, joint swelling, calf tenderness Back exam: Present: normal inspection Neurological exam: Present: alert, oriented X3, CN II-XII intact Psychiatric exam: Present: normal affect, normal mood Skin exam: Present: warm, dry, intact, normal color. Absent: rash Course Vital Signs 07/15/24 13:02 Temperature 97.6 F Pulse Rate 107 H Respiratory 20 Rate Blood Pressure 116/66 O2 Sat by Pulse 98 Oximetry Medical Decision Making - Medical Decision Making Was pt. sent in by a medical professional or institution (, PA, GENERAL OFFICE ASSOCIATE, urgent care, hospital, or half-way...) When possible be specific @ -[No] Did you speak to anyone other than the patient for history (EMS, parent, family, police, friend...)? What history was obtained from this source @ -[No] Did you review nursing and triage notes (agree or disagree)? Why? @ -[I reviewed and agree with nursing and triage notes] Were old charts reviewed (outside hosp., previous admission, EMS record, old EKG, old radiological studies, urgent care reports/EKG's, half-way records)? Report findings @ -[No old charts were reviewed] Differential Diagnosis (chest pain, altered mental status, abdominal pain women, abdominal pain men, vaginal bleeding, weakness, fever, dyspnea, syncope, headache, dizziness, GI bleed, back pain, seizure, CVA, palpatations, mental health, musculoskeletal)? @ -[not applicable] EKG interpreted by me (3pts min.). @ -Yes and demonstrates sinus rhythm with a rate of 96. [place] interval 144. QRS 122. QTc of 399. No acute ST segment elevations or depressions X-rays interpreted by me (1pt min.). @ -[None done] CT interpreted by me (1pt min.). @ -[None done] U/S interpreted by me (1pt. min.). @ -[None done] What testing was considered but not performed or refused? (CT, X-rays, U/S, labs)? Why? @ -[None] What meds were considered but not given or refused? Why? @ -[None] Did you discuss the management of the patient with other professionals (professionals i.e. , PA, GENERAL OFFICE ASSOCIATE, lab, RT, psych nurse, administrator social welfare, supervisor vendor quality, teacher, department of natural resources officer, clinical case manager)? Give summary @ -[No] Was smoking cessation discussed for >3mins.? @ -[No] Was critical care preformed (if so, how long)? @ -[No] Were there social determinants of health that impacted care today? How? (Homelessness, low income, unemployed, alcoholism, drug addiction, transportat ion, low edu. Level, literacy, decrease access to med. care, [facility], rehab)? @ -[No] Was there de-escalation of care discussed even if they declined (Discuss DNR or withdrawal of care, Hospice)? DNR status @ -[No] What co-morbidities impacted this encounter? (DM, HTN, Smoking, COPD, CAD, Cancer, CVA, ARF, Chemo, Hep., AIDS, mental health diagnosis, sleep apnea, morbid obesity)? @ -[None] Was patient admitted / discharged? Hospital course, mention meds given and route, prescriptions, significant lab abnormalities, going to OR and other pertinent info. @ -[hospital course] Undiagnosed new problem with uncertain prognosis? @ -[No] Drug Therapy requiring intensive monitoring for toxicity (Heparin, Nitro, Insulin, Cardizem)? @ -[No] Were any procedures done? @ -[No] Diagnosis/symptom? @ -[default] Acute, or Chronic, or Acute on Chronic? @ -[default] Uncomplicated (without systemic symptoms) or Complicated (systemic symptoms)? @ -[default] Side effects of treatment? @ -[No] Exacerbation, Progression, or Severe Exacerbation? @ -[No] Poses a threat to life or bodily function? How? (Chest pain, USA, NM, pneumonia, PE, COPD, DKA, ARF, appy, cholecystitis, CVA, Diverticulitis, Homicidal, Suicidal, threat to staff... and all critical care pts) @ -[No] - Lab Data Result diagrams: 07/15/24 13:50 07/15/24 13:50 Lab Results 07/15/24 07/15/24 07/15/24 Range/Units 13:50 13:50 13:50 WBC 14.0 H (3.8-10.6) k/uL RBC 5.07 (4.30-5.90) m/uL Hgb 15.6 D (13.0-17.5) gm/dL Hct 47.7 (39.0-53.0) % MCV 94.1 (80.0-100.0) fL MCH 30.7 (25.0-35.0) pg MCHC 32.6 (31.0-37.0) g/dL RDW 13.4 (11.5-15.5) % Plt Count 422 (150-450) k/uL MPV 7.2 Neutrophils % 78 % Lymphocytes % 14 % Monocytes % 6 % Eosinophils % 0 % Basophils % 0 % Neutrophils # 10.9 H (1.3-7.7) k/uL Lymphocytes # 2.0 (1.0-4.8) k/uL Monocytes # 0.8 (0-1.0) k/uL Eosinophils # 0.0 (0-0.7) k/uL Basophils # 0.1 (0-0.2) k/uL PT 10.5 (10.0-12.5) sec INR 0.9 (<1.2) APTT 21.5 L (22.0-30.0) sec D-Dimer 3.25 H (<0.60) mg/L FEU Sodium 137 (137-145) mmol/L Potassium 4.9 (3.5-5.1) mmol/L Chloride 104 (98-107) mmol/L Carbon Dioxide 11 L (22-30) mmol/L Anion Gap 22 mmol/L BUN 38 H (9-20) mg/dL Creatinine 1.09 (0.66-1.25) mg/dL Est GFR (CKD-EPI)AfAm 86 (>60 ml/min/1.73 sqM) Est GFR (CKD-EPI)NonAf 74 (>60 ml/min/1.73 sqM) Glucose 137 H (74-99) mg/dL Calcium 10.2 (8.4-10.2) mg/dL Magnesium 2.4 H (1.6-2.3) mg/dL Total Bilirubin 0.9 (0.2-1.3) mg/dL AST 21 (17-59) U/L ALT 18 (4-49) U/L Alkaline Phosphatase 97 (38-126) U/L Troponin I (0.000-0.034) ng/mL NT-Pro-B Natriuret Pep <20 pg/mL Total Protein 7.4 (6.3-8.2) g/dL Albumin 4.2 (3.5-5.0) g/dL Lipase 212 (23-300) U/L 07/15/24 Range/Units 13:50 WBC (3.8-10.6) k/uL RBC (4.30-5.90) m/uL Hgb (13.0-17.5) gm/dL Hct (39.0-53.0) % MCV (80.0-100.0) fL MCH (25.0-35.0) pg MCHC (31.0-37.0) g/dL RDW (11.5-15.5) % Plt Count (150-450) k/uL MPV Neutrophils % % Lymphocytes % % Monocytes % % Eosinophils % % Basophils % % Neutrophils # (1.3-7.7) k/uL Lymphocytes # (1.0-4.8) k/uL Monocytes # (0-1.0) k/uL Eosinophils # (0-0.7) k/uL Basophils # (0-0.2) k/uL PT (10.0-12.5) sec INR (<1.2) APTT (22.0-30.0) sec D-Dimer (<0.60) mg/L FEU Sodium (137-145) mmol/L Potassium (3.5-5.1) mmol/L Chloride (98-107) mmol/L Carbon Dioxide (22-30) mmol/L Anion Gap mmol/L BUN (9-20) mg/dL Creatinine (0.66-1.25) mg/dL Est GFR (CKD-EPI)AfAm (>60 ml/min/1.73 sqM) Est GFR (CKD-EPI)NonAf (>60 ml/min/1.73 sqM) Glucose (74-99) mg/dL Calcium (8.4-10.2) mg/dL Magnesium (1.6-2.3) mg/dL Total Bilirubin (0.2-1.3) mg/dL AST (17-59) U/L ALT (4-49) U/L Alkaline Phosphatase (38-126) U/L Troponin I <0.012 (0.000-0.034) ng/mL NT-Pro-B Natriuret Pep pg/mL Total Protein (6.3-8.2) g/dL Albumin (3.5-5.0) g/dL Lipase (23-300) U/L Disposition Clinical Impression: Chest pain, Tachycardia, Pulmonary embolism Disposition: ADMITTED IP TO THIS [facility] Condition: Stable Is patient prescribed a controlled substance at d/c from ED?: No Referrals: Ayesha Lainez DO [Primary Care Provider] - 1-2 days Time of Disposition: 16:04 Decision to Admit Reason: Admit from EC Decision Date: 07/15/24 Decision Time: 16:04
[2024-07-15 14:12] LABS: HGB 15.6 gm/dL (13.0-17.5)
[2024-07-15 14:22] LABS: INR 0.9 (<1.2); Prothrombin Time 10.5 sec (10.0-12.5)
[2024-07-15 14:28] LABS: Partial Thromboplastin Time 21.5 sec (22.0-30.0)
[2024-07-15 14:37] LABS: ALT 18 U/L (4-49); AST 21 U/L (17-59); African American GFR (CKD) 86 (>60 ml/min/1.73 sqM); Albumin 4.2 g/dL (3.5-5.0); Alkaline Phosphatase 97 U/L (38-126); Anion Gap 22 mmol/L; Blood Urea Nitrogen 38 mg/dL (9-20); Calcium 10.2 mg/dL (8.4-10.2); Carbon Dioxide 11 mmol/L (22-30); Chloride 104 mmol/L (98-107); Glucose 137 mg/dL (74-99); Lipase 212 U/L (23-300); Magnesium 2.4 mg/dL (1.6-2.3); Non-African American GFR(CKD) 74 (>60 ml/min/1.73 sqM); Potassium 4.9 mmol/L (3.5-5.1); Sodium 137 mmol/L (137-145); Total Bilirubin 0.9 mg/dL (0.2-1.3); Total Protein 7.4 g/dL (6.3-8.2)
[2024-07-15 14:46] LABS: NT-Pro-B-Type Natriuretic Pept <20 pg/mL
[2024-07-15] MEDS ORDERED: HEPARIN SODIUM 1,000 UN/ML (10ML VL) IV PRN (15:44)
--- NOTE | 2024-07-15 15:44 | CT ---
EXAMINATION TYPE: CT chest angio for PE DATE OF EXAM: 07/15/2024 COMPARISON: None CLINICAL INDICATION: Male, 59 years old with history of chest pain; PHH, chest pain, SOB or PAIN TECHNIQUE: Ct angiogram of the chest performed with with IV Contrast, patient injected with 100 mL of Isovue 370 . MIP images are created and reviewed. CT DLP: [address] CTDI: mGy Automated exposure control for dose reduction was used. FINDINGS: There are multiple scattered filling defects within the pulmonary arterial circulation including the distal right pulmonary artery, multiple segmental and subsegmental branches in the right upper and lo wer lobes and in segmental branches in the left upper lobe. The number of emboli much greater in the right lung versus the left. There is no evidence of right heart strain.. There is a triangular-shaped subpleural parenchymal groundglass interstitial density in the right mid dle lobe with surgical represent an infarct or focal pneumonia. There is no suspicious lung mass. There is no pleural effusion or pneumothorax. There is no mediastinal, hilar or axillary adenopathy. Limited scanning through the upper abdomen reveals no gross abnormality. No focal osseous lesions are seen. IMPRESSION: 1. Bilateral pulmonary emboli as described above. There is no evidence of right heart strain. 2. Right middle lobe infiltrate possibly an infarct or focal pneumonia. The ER was notified of these important findings by phone on 07/15/2024 at 3:40 PM. [facility], , 07/15/2024 3:42 PM
[2024-07-15] MEDS ORDERED: NALOXONE 0.4 MG/ML 1 ML VIAL IV PRN (16:07)
--- NOTE | 2024-07-15 16:38 | US ---
EXAMINATION TYPE: US venous doppler duplex LE DATE OF EXAM: 07/15/2024 4:27 PM COMPARISON: NONE CLINICAL INDICATION: Male, 59 years old with history of pulmonary embolism; PE Rouleaux flow seen. , Pain TECHNIQUE: The lower extremity deep venous system is examined utilizing real time linear array sonog osiel with graded compression, color doppler sonography, and spectral doppler. SIDE PERFORMED: Bilateral FINDINGS: VESSELS IMAGED: Common Femoral Vein Deep Femoral Vein Greater Saphenous Vein * Femoral Vein Popliteal Vein Small Saphenous Vein * Proximal Calf Veins (* superficial vessels) Right Leg: Negative for DVT, Color Doppler imaging shows patency of the vessels. Spectral waveforms are within normal limits. Left Leg: Negative for DVT, Color Doppler imaging shows patency of the vessels. Spectral waveforms a re within normal limits. IMPRESSION: No visualized deep venous thrombosis. [facility], , 07/15/2024 4:35 PM
[2024-07-15] MEDS: HEPARIN SODIUM 1,000 UN/ML (10ML VL) IV ONE (16:53)
[2024-07-15] MEDS: HEPARIN SOD,PORK IN 0.45% NACL 25,000 UNIT in 0.45% NACL 1 250ML.BAG IV SCH (16:54)
[2024-07-15] MEDS: MORPHINE SULFATE 4 MG/ML SYRINGE IV PRN (19:06)
[2024-07-15] MEDS ORDERED: SIMETHICONE 40 MG/0.6 ML DROPS 2,000 MG/30 ML BOTTLE PO PRN (20:02)
[2024-07-15] MEDS ORDERED: ACETAMINOPHEN TAB 500 MG TAB PO PRN (20:02)
[2024-07-15] MEDS: lisinopriL 20 MG TAB PO SCH (22:33)
--- NOTE | 2024-07-16 01:51 | P.CNPUL ---
History of Present Illness Consult date: 07/16/24 Requesting physician: Vanesa Oconnor Reason for consult: pulmonary embolism Chief complaint: Sudden right-sided chest pain History of present illness: Patient is a 59-year-old male with past medical history significant for hypertension. Of note, patient recently hospitalized for complicated diverticulitis with perforation and an exploratory laparotomy with sigmoid colectomy and end colostomy performed on 06/29/2024. Patient was eventually discharged on 07/04/2024. He did receive DVT prophylaxis while hospitalized. Patient presented the emergency department yesterday afternoon with a chief complaint of severe right-sided chest pain that developed suddenly overnight. Progressively worsening throughout the morning. Also, reported left calf pain described as a "knot", that is since gone away. D-dimer was elevated hence the CT angio protocol, which demonstrated multiple scattered filling defects within the distal right pulmonary artery, multiple segmental and subsegmental branches to the right upper and lower lobes, and and segmental branches in the left upper lobe. No CT evidence of right-sided heart strain. There was a right middle lobe infiltrate or more likely infarct. Venous Doppler was unremarkable for DVT bilaterally. Patient was started on high intensity heparin protocol. Hemodynamics remained stable. On room air oxygen. He was admitted to the [facility] stepdown unit. CBC: WBC count 14, hemoglobin 15.6, platelets 422. Baseline aPTT 21.5 CMP: Sodium 137, potassium 4.9, chloride 104, serum bicarb 11, BUN 38, creatinine 1.09, glucose 137. Magnesium 2.4. LFTs not elevated. Troponin less than 0.012 NT proBNP less than 20. Patient is currently being evaluated on the cardiac stepdown unit. He is resting comfortably on room air oxygen. Nontachypneic. Denies any coughing, hemoptysis. Denies any palpitations, lightheadedness, syncopal events. Chest pain described as if getting punched in the right chest, sudden onset, currently rated 4 or 5 out of 10 point numerical scale. States that as needed morphine helps. Did receive a 1 L fluid bolus while in the ED. Blood pressure has been stable. No recent falls or trauma. Left lower quadrant colostomy is functional and appears viable. Midline abdominal incision is pink and approximated with cathy. Current most recent vital signs: Afebrile, heart rate 73 bpm, blood pressure 115/80 mmHg, nontachypneic, SpO2 is 93% on room air. Review of Systems REVIEW OF SYSTEMS: CONSTITUTIONAL: Denies any recent significant weight loss or weight gain. EYES: Denies change in vision. EARS, NOSE, MOUTH, THROAT: denies sore throat. Admits previous frontal headache which is improved CARDIOVASCULAR: As per HPI RESPIRATORY: Denies shortness of breath, cough, congestion or hemoptysis. GASTROINTESTINAL: Denies change in appetite, abdominal pain, nausea and vomiting, or diarrhea. Colostomy has been functional. GENITOURINARY: Denies hematuria, denies infections. MUSKULOSKELETAL: Denies pain, denies swelling. INTEGUMENTARY: Denies rash, denies eczema. NEUROLOGICAL: Denies recent memory loss, no recent seizure activity. PSYCHIATRIC: Denies anxiety, denies depression. HEMATOLOGIC/LYMPHATIC: Denies anemia, denies enlarged lymph node Past Medical History Past Medical History: Hypertension Additional Past Medical History / Comment(s): kidney stones History of Any Multi-Drug Resistant Organisms: None Reported Past Surgical History: Bowel Resection, Orthopedic Surgery Additional Past Surgical History / Comment(s): DENTAL, R hand surgery. colostomy Past Anesthesia/Blood Transfusion Reactions: No Reported Reaction Additional Past Anesthesia/Blood Transfusion Reaction / Comment(s): never had blood transfusion Past Psychological History: No Psychological Hx Reported Smoking Status: Current every day smoker Past Alcohol Use History: Occasional Past Drug Use History: None Reported Medications and Allergies Home Medications Medication Instructions Recorded Confirmed Type lisinopriL [Zestril] 20 mg PO BID 06/29/24 07/15/24 History Ibuprofen [Motrin] 600 mg PO Q8HR PRN #30 tab 07/02/24 07/15/24 Rx Acetaminophen Tab [Tylenol Tab] 1,000 mg PO Q6HR PRN #30 tablet 07/03/24 07/15/24 Rx Simethicone 40 mg/0.6 ml Drops 40 mg PO Q6HR PRN #30 ml 07/03/24 07/15/24 Rx [Mylicon Drops] Allergies Allergy/AdvReac Type Severity Reaction Status Date / Time iodine Allergy Anaphylaxis Verified 07/15/24 14:54 shellfish derived Allergy Rash/Hives Verified 07/15/24 14:54 Physical Exam Vitals: Vital Signs Temp Pulse Resp BP Pulse Ox 07/15/24 21:57 73 18 115/80 93 L 07/15/24 19:00 80 16 126/77 94 L 07/15/24 16:48 77 20 120/78 94 L 07/15/24 13:02 97.6 F 107 H 20 116/66 98 Intake and Output 07/15/24 07/15/24 07/16/24 14:59 22:59 06:59 Other: Weight 99.79 kg GENERAL EXAM: Alert, 59-year-old male, lying in bed, on room air, comfortable in no apparent distress. HEAD: Normocephalic and atraumatic EYES: Normal reaction of pupils, equal size. NOSE: Clear with pink turbinates. THROAT: No erythema or exudates. NECK: No masses, no JVD. CHEST: No chest wall deformity. LUNGS: Equal air entry with no crackles, wheeze, rhonchi or dullness. On room air. No conversational dyspnea or accessory muscle use.. CVS: S1 and S2 normal with no audible murmur, regular rhythm. No extra heart sounds ABDOMEN: Abdomen is flat, midline abdominal incision is approximated and pink with cathy, functional colostomy on the left, stoma appears pink and viable, active bowel sounds, no hepatosplenomegaly, no guarding or rigidity. SPINE: No scoliosis or deformity SKIN: No rashes CENTRAL NERVOUS SYSTEM: No focal deficits, tone is normal in all 4 extremities. EXTREMITIES: There is no peripheral edema, clubbing, or cyanosis. Peripheral pulses are intact. Results - Laboratory Findings CBC and BMP: 07/16/24 05:39 07/16/24 05:39 PT/INR, D-dimer PT 10.5 sec (10.0-12.5) 07/15/24 13:50 INR 0.9 (<1.2) 07/15/24 13:50 D-Dimer 3.25 mg/L FEU (<0.60) H 07/15/24 13:50 Abnormal lab findings: Abnormal Labs 07/15/24 07/15/24 07/15/24 13:50 13:50 13:50 WBC 14.0 H Neutrophils # 10.9 H APTT 21.5 L D-Dimer 3.25 H Carbon Dioxide 11 L BUN 38 H Glucose 137 H Magnesium 2.4 H 07/15/24 23:46 WBC Neutrophils # APTT 49.4 H D-Dimer Carbon Dioxide BUN Glucose Magnesium - Diagnostic Findings CT scan - chest: image reviewed Assessment and Plan Assessment: Acute bilateral pulmonary emboli without CT evidence of right-sided heart strain, no signs of hemodynamic instability; CT angio protocol, which demonstrated multiple scattered filling defects within the distal right pulmonary artery, multiple segmental and subsegmental branches to the right upper and lower lobes, and and segmental branches in the left upper lobe. No CT evidence of right-sided heart strain. There was a right middle lobe infiltrate or more likely infarct. Suspect pulmonary infarct, as outlined above Chest pain, secondary to above Acute leukocytosis, reactive to above Anion gap metabolic acidosis Recent hospitalization within the last 30 days History of complicated diverticulitis with perforation and exploratory laparotomy with sigmoid colectomy and end colostomy performed on 06/29/2024 History of hypertension Plan: Patient's medications, labs, imaging reviewed Continues on high intensity heparin protocol No CT evidence of right-sided heart strain, follow-up echocardiogram is pending We will likely start patient on DOAC pending above for 3 to 6 months Currently on room air oxygen No signs of hemodynamic instability debility, received 1 L fluid bolus in the ED, SBP is maintained above 100 mmHg As needed analgesics ordered We will continue to follow, additional recommendations to follow I have personally seen and examined the patient, performed the documentation and the assessment and plan as written. Number of minutes spent on the visit:20 This is a joint evaluation that was done along with the nurse practitioner. This evaluation was done more than 30 minutes. The patient had a recent colectomy and diverting colostomy for an acute diverticulitis. Colostomy is functional. The patient was active without any previous history of DVTs or pulmonary embolism. He presented to the hospital because of worsening shortness of breath and chest pain and the patient was diagnosed having bilateral pulm embolism right more than left. Doppler of the lower extremities were negative. No RV strain pattern. Hemodynamically stable. Currently on room air oxygen. No hemoptysis. His abdominal surgery was done on 06/29/2024. Currently on IV heparin. Echocardiogram was ordered. Labs were noted. Hemoglobin is at 14.7. The plan is to discharge this patient within the next 24 to 48 hours on oral anticoagulants. The reversal for his colostomy needs to be deferred for at least 6 months. I had a lengthy discussion with the patient. Explained to him the findings. Time with Patient: Greater than 30
[2024-07-16 06:36] LABS: Basophils % (A) 0 %; Eosinophils % (A) 0 %; HCT 45.3 % (39.0-53.0); HGB 14.7 gm/dL (13.0-17.5); Lymphocytes # (A) 1.3 k/uL (1.0-4.8); Lymphocytes % (A) 11 %; MCH 30.8 pg (25.0-35.0); MCHC 32.4 g/dL (31.0-37.0); Mean Platelet Volume 7.3; Monocytes # (A) 0.7 k/uL (0-1.0); Monocytes % (A) 5 %; Neutrophils # (A) 10.2 k/uL (1.3-7.7); Neutrophils % (A) 82 %; Platelet Count 382 k/uL (150-450); RBC 4.77 m/uL (4.30-5.90); RDW 13.3 % (11.5-15.5); WBC 12.4 k/uL (3.8-10.6)
[2024-07-16 08:09] LABS: African American GFR (CKD) >90 (>60 ml/min/1.73 sqM); Anion Gap 10 mmol/L; Blood Urea Nitrogen 36 mg/dL (9-20); Calcium 9.7 mg/dL (8.4-10.2); Carbon Dioxide 23 mmol/L (22-30); Chloride 103 mmol/L (98-107); Glucose 126 mg/dL (74-99); Non-African American GFR(CKD) >90 (>60 ml/min/1.73 sqM); Potassium 4.9 mmol/L (3.5-5.1); Sodium 136 mmol/L (137-145)
--- NOTE | 2024-07-16 15:50 | P.HPIM ---
History of Present Illness H&P Date: 07/16/24 Chief Complaint: Chest pain 59-year-old male who presents emergency department reporting pleuritic chest pain. States that the pain started last night and worsened today. It is located over the right chest wall and is worse with deep inspiration. Patient feels short of breath. Denies fevers or productive cough. Denies history of cardiac disease. Does admit to recent hospitalization with surgery from the through the . Patient was on heparin shots throughout his stay but denies being on any anticoagulation once he got home. Patient did admit to having some left calf pain but this was on Friday and has subsequently gone away. He denies history of DVT or PE. No numbness, tingling or weakness in his extremities. No other alleviating, precipitating or modifying factors Review of Systems REVIEW OF SYSTEMS: CONSTITUTIONAL: No fever, no malaise, no fatigue. HEENT: No recent visual problems or hearing problems. Denied any sore throat. CARDIOVASCULAR: No chest pain, orthopnea, PND, no palpitations, no syncope. PULMONARY: No shortness of breath, no cough, no hemoptysis. GASTROINTESTINAL: No diarrhea, no nausea, no vomiting, no abdominal pain. NEUROLOGICAL: No headaches, no weakness, no numbness. HEMATOLOGICAL: Denies any bleeding or petechiae. GENITOURINARY: Denies any burning micturition, frequency, or urgency. MUSCULOSKELETAL/RHEUMATOLOGICAL: Denies any joint pain, swelling, or any muscle pain. ENDOCRINE: Denies any polyuria or polydipsia. The rest of the 14-point review of systems is negative. Past Medical History Past Medical History: Hypertension Additional Past Medical History / Comment(s): kidney stones, perforated bowel History of Any Multi-Drug Resistant Organisms: None Reported Past Surgical History: Bowel Resection, Orthopedic Surgery Additional Past Surgical History / Comment(s): DENTAL, R hand surgery, Bowel resection w colostomy in June 2024 Past Anesthesia/Blood Transfusion Reactions: No Reported Reaction Additional Past Anesthesia/Blood Transfusion Reaction / Comment(s): never had blood transfusion Past Psychological History: No Psychological Hx Reported Smoking Status: Current every day smoker Past Alcohol Use History: Occasional Past Drug Use History: None Reported Medications and Allergies Home Medications Medication Instructions Recorded Confirmed Type lisinopriL [Zestril] 20 mg PO BID 06/29/24 07/15/24 History Ibuprofen [Motrin] 600 mg PO Q8HR PRN #30 tab 07/02/24 07/15/24 Rx Acetaminophen Tab [Tylenol Tab] 1,000 mg PO Q6HR PRN #30 tablet 07/03/24 07/15/24 Rx Simethicone 40 mg/0.6 ml Drops 40 mg PO Q6HR PRN #30 ml 07/03/24 07/15/24 Rx [Mylicon Drops] Allergies Allergy/AdvReac Type Severity Reaction Status Date / Time iodine Allergy Anaphylaxis Verified 07/15/24 14:54 shellfish derived Allergy Rash/Hives Verified 07/15/24 14:54 Physical Exam Vitals: Vital Signs Temp Pulse Pulse Resp BP BP Pulse Ox 07/16/24 08:00 98.0 F 70 16 128/70 94 L 07/16/24 07:10 98.0 F 70 16 128/70 94 L 07/16/24 03:10 71 16 138/73 95 07/15/24 23:37 67 14 141/78 97 07/15/24 22:15 98.3 F 82 18 127/73 95 07/15/24 21:57 73 18 115/80 93 L 07/15/24 19:00 80 16 126/77 94 L 07/15/24 16:48 77 20 120/78 94 L 07/15/24 13:02 97.6 F 107 H 20 116/66 98 Intake and Output 07/15/24 07/16/24 07/16/24 22:59 06:59 14:59 Intake Total 185.607 210.504 Balance 185.607 210.504 Intake: Intake, IV Titration 185.607 92.504 Amount Heparin Sod,Pork in 0.45% 185.607 92.504 NaCl 25,000 unit In 0.45 % NaCl 1 250ml.bag @ 18 UNITS/KG/HR 17.962 mls/hr IV .[id number] [facility] Rx#: [id number] Oral 118 Other: Voiding Method Toilet Toilet Urinal Urinal # Voids 1 Weight 99.7 kg General appearance: alert, in no apparent distress Head exam: Present: atraumatic, normocephalic, normal inspection Neck exam: Present: normal inspection. Absent: tenderness, meningismus, lymphadenopathy Respiratory exam: Present: normal lung sounds bilaterally. Absent: respiratory distress, wheezes, rales, rhonchi, stridor Cardiovascular Exam: Present: regular rate, normal rhythm, normal heart sounds. Absent: systolic murmur, diastolic murmur, rubs, gallop, clicks GI/Abdominal exam: Present: soft, normal bowel sounds. Absent: distended, tenderness, guarding, rebound, rigid Extremities exam: Present: normal inspection, full ROM, normal capillary refill. Absent: tenderness, pedal edema, joint swelling, calf tenderness Neurological exam: Present: alert, oriented X3, CN II-XII intact Skin exam: Present: warm, dry, intact, normal color. Absent: rash Results CBC & Chem 7: 07/16/24 05:39 07/16/24 05:39 Labs: Abnormal Lab Results - Last 24 Hours (Table) 07/15/24 07/15/24 07/15/24 Range/Units 13:50 13:50 13:50 WBC 14.0 H (3.8-10.6) k/uL Neutrophils # 10.9 H (1.3-7.7) k/uL APTT 21.5 L (22.0-30.0) sec D-Dimer 3.25 H (<0.60) mg/L FEU Sodium (137-145) mmol/L Carbon Dioxide 11 L (22-30) mmol/L BUN 38 H (9-20) mg/dL Glucose 137 H (74-99) mg/dL Magnesium 2.4 H (1.6-2.3) mg/dL 07/15/24 07/16/24 07/16/24 Range/Units 23:46 05:39 05:39 WBC 12.4 H (3.8-10.6) k/uL Neutrophils # 10.2 H (1.3-7.7) k/uL APTT 49.4 H (22.0-30.0) sec D-Dimer (<0.60) mg/L FEU Sodium 136 L (137-145) mmol/L Carbon Dioxide (22-30) mmol/L BUN 36 H (9-20) mg/dL Glucose 126 H (74-99) mg/dL Magnesium (1.6-2.3) mg/dL 07/16/24 Range/Units 05:39 WBC (3.8-10.6) k/uL Neutrophils # (1.3-7.7) k/uL APTT 53.6 H (22.0-30.0) sec D-Dimer (<0.60) mg/L FEU Sodium (137-145) mmol/L Carbon Dioxide (22-30) mmol/L BUN (9-20) mg/dL Glucose (74-99) mg/dL Magnesium (1.6-2.3) mg/dL Thrombosis Risk Factor Assmnt - Choose All That Apply Each Factor Represents 1 point: Age 41-60 years, Medical pt on bed rest, Obesity (BMI >25) Each Risk Factor Represents 3 Points: History of DVT/PE Thrombosis Risk Factor Assessment Total Risk Factor Score: 6 Thrombosis Risk Factor Assessment Level: High Risk Assessment and Plan Assessment: Acute bilateral pulmonary emboli without CT evidence of right-sided heart strain, no signs of hemodynamic instability; CT angio protocol, which demonstrated multiple scattered filling defects within the distal right pulm onary artery, multiple segmental and subsegmental branches to the right upper and lower lobes, and and segmental branches in the left upper lobe. No CT evidence of right-sided heart strain. There was a right middle lobe infiltrate or more likely infarct. Suspect pulmonary infarct, as outlined above Chest pain, secondary to above; related to PE versus pulmonary infarction; CT of the chest did not reveal right middle lobe infiltrate versus infarct; no recommendation to start patient on antibiotics at this time Acute leukocytosis, reactive to above; no significant signs of infection; will monitor CBC, CRP and procalcitonin; further workup if blood work is normal Anion gap metabolic acidosis Hypertension; lisinopril 20 mg twice daily DVT prophylaxis; IV heparin CODE STATUS; full code
--- NOTE | 2024-07-16 16:18 | CA ---
Transthoracic Echo Report Name: Juan Guerin Age: 59 Gender: M : 1965 Exam Date: 07/16/2024 08:27 Exam Location: [facility] Ht (in): 74 Wt (lb): 220 Ordering Physician: Vanesa Oconnor DO Attending/Referring Phys: [id number], Elvin Tube Test Technician Shereen Vasquez, IKER Procedure CPT: Indications: Pulmonary Embolism Cardiac Hx: Technical Quality: Fair Contrast 1: Total Dose (mL): Contrast 2: Total Dose (mL): MEASUREMENTS (Male / Female) Normal Values 2D ECHO LV Diastolic Diameter PLAX 4.7 cm 4.2 - 5.9 / 3.9 - 5.3 cm LV Systolic Diameter PLAX 3.3 cm IVS Diastolic Thickness 1.0 cm 0.6 - 1.0 / 0.6 - 0.9 cm LVPW Diastolic Thickness 1.0 cm 0.6 - 1.0 / 0.6 - 0.9 cm LV Relative Wall Thickness 0.4 LVOT Diameter 1.5 cm Aortic Root Diameter 3.2 cm LA Systolic Diameter LX 3.6 cm 3.0 - 4.0 / 2.7 - 3.8 cm LV Diastolic Volume MOD BP 159.1 cm??? 67 - 155 / 56 - 104 cm??? LV Systolic Volume MOD BP 67.3 cm??? - 58 / 19 - 49 cm??? LV Ejection Fraction MOD BP 57.7 % >= 55 % LV Cardiac Index MOD BP 2597.7 cm???/min???m??? LV Diastolic Volume MOD 4C 160.8 cm??? LV Systolic Volume MOD 4C 62.4 cm??? LV Ejection Fraction MOD 4C 61.2 % LV Cardiac Index MOD 4C 2783.6 cm???/min???m??? LV Diastolic Length 4C 9.1 cm LV Systolic Length 4C 7.4 cm LV Diastolic Volume MOD 2C 150.8 cm??? LV Systolic Volume MOD 2C 68.9 cm??? LV Ejection Fraction MOD 2C 54.3 % LV Cardiac Index MOD 2C 2315.9 cm???/min???m??? LV Diastolic Length 2C 9.5 cm LV Systolic Length 2C 7.9 cm LA Volume 39.0 cm??? - 58 / 22 - 52 cm??? LA Volume Index 17.0 cm???/m??? 16 - 28 cm???/m??? DOPPLER MV Area PHT 3.4 cm??? Mitral E Point Velocity 45.7 cm/s Mitral A Point Velocity 49.6 cm/s Mitral E to A Ratio 0.9 MV Deceleration Time 222.7 ms Right Atrial Pressure 15.0 mmHg FINDINGS Left Ventricle Left ventricular ejection fraction is estimated at 55-60%. NO obvious regional wall motion abnormalities. Mildly increased left ventricular diastolic volume. Mildly increased left ventricular systolic volume. Right Ventricle Moderate right ventricular dilatation. Unable to estimate the right ventricular systolic pressure. Right Atrium Normal right atrial size. Left Atrium Normal left atrial size. Mitral Valve Structurally normal mitral valve. No mitral stenosis. Trace mitral regurgitation. Aortic Valve Trileaflet aortic valve. No aortic stenosis. No aortic regurgitation. Aortic valve sclerosis. Tricuspid Valve Structurally normal tricuspid valve. No tricuspid stenosis. No tricuspid regurgitation. Pulmonic Valve Structurally normal pulmonic valve. No pulmonic regurgitation. Pericardium No pericardial or pleural effusion. Aorta Aortic root and proximal ascending aorta not well visualized. CONCLUSIONS LVEF 55% No obvious regional wall motion abnormality Moderate RA dilatation No significant valvular dysfunction appreciated Previewed by: Dr Tomás Lomeli (Electronically Signed) Final Date: 16 July 2024 16:17
[2024-07-16] MEDS: HYDROmorphone 1 MG/ML 1 ML SYRINGE IVP STA (17:15)
[2024-07-16 20:53] VITALS: RESP 18
[2024-07-17 06:31] LABS: Basophils # (A) 0.1 k/uL (0-0.2); Basophils % (A) 1 %; Eosinophils % (A) 0 %; HCT 43.4 % (39.0-53.0); HGB 14.2 gm/dL (13.0-17.5); Lymphocytes # (A) 3.4 k/uL (1.0-4.8); Lymphocytes % (A) 30 %; MCH 30.5 pg (25.0-35.0); MCHC 32.6 g/dL (31.0-37.0); MCV 93.4 fL (80.0-100.0); Monocytes # (A) 0.7 k/uL (0-1.0); Monocytes % (A) 6 %; Neutrophils # (A) 6.8 k/uL (1.3-7.7); Neutrophils % (A) 61 %; Platelet Count 331 k/uL (150-450); RBC 4.65 m/uL (4.30-5.90); RDW 13.6 % (11.5-15.5); WBC 11.2 k/uL (3.8-10.6)
[2024-07-17 07:47] LABS: African American GFR (CKD) >90 (>60 ml/min/1.73 sqM); Anion Gap 9 mmol/L; Blood Urea Nitrogen 33 mg/dL (9-20); C Reactive Protein 2.8 mg/dL (<1.0); Calcium 9.5 mg/dL (8.4-10.2); Carbon Dioxide 24 mmol/L (22-30); Chloride 100 mmol/L (98-107); Glucose 91 mg/dL (74-99); Non-African American GFR(CKD) >90 (>60 ml/min/1.73 sqM); Potassium 4.7 mmol/L (3.5-5.1); Sodium 133 mmol/L (137-145)
[2024-07-17] MEDS: Apixaban Initiation Dose--VTE 5 MG TAB PO SCH (11:49)
--- NOTE | 2024-07-17 13:53 | P.PN ---
Subjective Progress Note Date: 07/17/24 Patient is a 59-year-old male with past medical history significant for hypertension. Of note, patient recently hospitalized for complicated diverticulitis with perforation and an exploratory laparotomy with sigmoid colectomy and end colostomy performed on 06/29/2024. Patient was eventually d ischarged on 07/04/2024. He did receive DVT prophylaxis while hospitalized. Patient presented the emergency department yesterday afternoon with a chief complaint of severe right-sided chest pain that developed suddenly overnight. Progressively worsening throughout the morning. Also, reported left calf pain described as a "knot", that is since gone away. D-dimer was elevated hence the CT angio protocol, which demonstrated multiple scattered filling defects within the distal right pulmonary artery, multiple segmental and subsegmental branches to the right upper and lower lobes, and and segmental branches in the left upper lobe. No CT evidence of right-sided heart strain. There was a right middle lobe infiltrate or more likely infarct. Venous Doppler was unremarkable for DVT bilaterally. Patient was started on high intensity heparin protocol. Hemodynamics remained stable. On room air oxygen. He was admitted to the cardiac stepdown unit. CBC: WBC count 14, hemoglobin 15.6, platelets 422. Baseline aPTT 21.5 CMP: Sodium 137, potassium 4.9, chloride 104, serum bicarb 11, BUN 38, creatinine 1.09, glucose 137. Magnesium 2.4. LFTs not elevated. Troponin less than 0.012 NT proBNP less than 20. Patient is currently being evaluated on the cardiac stepdown unit. He is resting comfortably on room air oxygen. Nontachypneic. Denies any coughing, hemoptysis. Denies any palp itations, lightheadedness, syncopal events. Chest pain described as if getting punched in the right chest, sudden onset, currently rated 4 or 5 out of 10 point numerical scale. States that as needed morphine helps. Did receive a 1 L fluid bolus while in the ED. Blood pressure has been stable. No recent falls or trauma. Left lower quadrant colostomy is functional and appears viable. Midline abdominal incision is pink and approximated with cathy. Current most recent vital signs: Afebrile, heart rate 73 bpm, blood pressure 115/80 mmHg, nontachypneic, SpO2 is 93% on room air 07/17/2024, patient is still having some pleuritic chest pain specially on the right. Pain is around 4 out of 10 in severity. Ambulating. Still on IV heparin. Hemodynamically stable. Echocardiogram was noted the patient has a preserved LV function, ejection fraction 55 to 60%, moderate RA dilatation, PA pressures cannot be estimated. Nevertheless, the patient is doing well. Hemodynamically stable. 1 second 11 hemoglobin 14.2 and BUN is 33 with a creatinine of 0.8. Objective - Vital Signs Vital signs: Vital Signs Temp 97.6 F 07/17/24 08:16 Pulse 72 07/17/24 10:01 Resp 18 07/17/24 10:01 BP 104/59 07/17/24 08:16 Pulse Ox 98 07/17/24 08:16 FiO2 Intake & Output 07/16/24 07/17/24 07/17/24 18:59 06:59 18:59 Intake Total 361.085 252.965 0 Balance 361.085 252.965 0 Weight 99.8 kg Intake: Intake, IV Titration 243.085 252.965 Amount Heparin Sod,Pork in 0.45% 243.085 252.965 NaCl 25,000 unit In 0.45 % NaCl 1 250ml.bag @ 18 UNITS/KG/HR 17.962 mls/hr IV .[id number] [facility] Rx#: [id number] Oral 118 0 Other: Voiding Method Toilet Toilet Urinal Urinal # Voids 3 1 - Exam GENERAL EXAM: Alert, 59-year-old male, lying in bed, on room air, comfortable in no apparent distress. HEAD: Normocephalic and atraumatic EYES: Normal reaction of pupils, equal size. NOSE: Clear with pink turbinates. THROAT: No erythema or exudates. NECK: No masses, no JVD. CHEST: No chest wall deformity. LUNGS: Equal air entry with no crackles, wheeze, rhonchi or dullness. On room air. No conversational dyspnea or accessory muscle use.. CVS: S1 and S2 normal with no audible murmur, regular rhythm. No extra heart sounds ABDOMEN: Abdomen is flat, midline abdominal incision is approximated and pink with cathy, functional colostomy on the left, stoma appears pink and viable, active bowel sounds, no hepatosplenomegaly, no guarding or rigidity. SPINE: No scoliosis or deformity SKIN: No rashes CENTRAL NERVOUS SYSTEM: No focal deficits, tone is normal in all 4 extremities. EXTREMITIES: There is no peripheral edema, clubbing, or cyanosis. Peripheral pulses are intact. - Labs CBC & Chem 7: 07/17/24 05:37 07/17/24 05:37 Labs: Abnormal Lab Results - Last 24 Hours (Table) 07/17/24 07/17/24 07/17/24 Range/Units 05:37 05:37 05:37 WBC 11.2 H (3.8-10.6) k/uL APTT 38.3 H (22.0-30.0) sec Sodium 133 L (137-145) mmol/L BUN 33 H (9-20) mg/dL C-Reactive Protein 2.8 H (<1.0) mg/dL Assessment and Plan Assessment: Acute bilateral pulmonary emboli without CT evidence of right-sided heart strain, no signs of hemodynamic instability; CT angio protocol, which demonstrated multiple scattered filling defects within the distal right pulmonary artery, multiple segmental and subsegmental branches to the right upper and lower lobes, and and segmental branches in the left upper lobe. No CT evidence of right-sided heart strain. There was a right middle lobe infiltrate or more likely infarct. Suspect pulmonary infarct, as outlined above Chest pain, secondary to above, pleuritic in nature on the right Acute leukocytosis, reactive to above, improving Anion gap metabolic acidosis, recovered Recent hospitalization within the last 30 days History of complicated diverticulitis with perforation and exploratory laparotom y with sigmoid colectomy and end colostomy performed on 06/29/2024 History of hypertension Plan: Remains on room air oxygen Echocardiogram was noted, preserved LV function, RV SP cannot be estimated Remains on IV heparin, discontinued IV heparin start the patient anticoagulation with Eliquis per protocol No CT evidence of right-sided heart strain, follow-up echocardiogram is pending No signs of hemodynamic instability As needed analgesics ordered and the patient will be given [place] 7.5 The plan is to discharge this patient within the next 24 to 48 hours on oral anticoagulants. The reversal for his colostomy needs to be deferred for at least 6 months. I had a lengthy discussion with the patient. Explained to him the findings.
--- NOTE | 2024-07-17 15:46 | P.PN ---
Subjective Progress Note Date: 07/17/24 59-year-old male who presents emergency department reporting pleuritic chest pain. States that the pain started last night and worsened today. It is located over the right chest wall and is worse with deep inspiration. Patient feels short of breath. Denies fevers or productive cough. Denies history of cardiac disease. Does admit to recent hospitalization with surgery from the through the . Patient was on heparin shots throughout his stay but denies being on any anticoagulation once he got home. Patient did admit to having some left calf pain but this was on Friday and has subsequently gone away. He denies history of DVT or PE. No numbness, tingling or weakness in his extremities. No other alleviating, precipitating or modifying factors Objective - Vital Signs Vital signs: Vital Signs Temp 97.6 F 07/17/24 08:16 Pulse 72 07/17/24 10:01 Resp 18 07/17/24 10:01 BP 104/59 07/17/24 08:16 Pulse Ox 98 07/17/24 08:16 FiO2 Intake & Output 07/16/24 07/17/24 07/17/24 18:59 06:59 18:59 Intake Total 361.085 252.965 0 Balance 361.085 252.965 0 Weight 99.8 kg Intake: Intake, IV Titration 243.085 252.965 Amount Heparin Sod,Pork in 0.45% 243.085 252.965 NaCl 25,000 unit In 0.45 % NaCl 1 250ml.bag @ 18 UNITS/KG/HR 17.962 mls/hr IV .[id number] [facility] Rx#: [id number] Oral 118 0 Other: Voiding Method Toilet Toilet Urinal Urinal # Voids 3 1 - Exam General appearance: alert, in no apparent distress Head exam: Present: atraumatic, normocephalic, normal inspection Neck exam: Present: normal inspection. Absent: tenderness, meningismus, lymphadenopathy Respiratory exam: Present: normal lung sounds bilaterally. Absent: respiratory distress, wheezes, rales, rhonchi, stridor Cardiovascular Exam: Present: regular rate, normal rhythm, normal heart sounds. Absent: systolic murmur, diastolic murmur, rubs, gallop, clicks GI/Abdominal exam: Present: soft, normal bowel sounds. Absent: distended, tenderness, guarding, rebound, rigid Extremities exam: Present: normal inspection, full ROM, normal capillary refill. Absent: tenderness, pedal edema, joint swelling, calf tenderness Neurological exam: Present: alert, oriented X3, CN II-XII intact Skin exam: Present: warm, dry, intact, normal color. Absent: rash - Labs CBC & Chem 7: 07/17/24 05:37 07/17/24 05:37 Labs: Abnormal Lab Results - Last 24 Hours (Table) 07/17/24 07/17/24 07/17/24 Range/Units 05:37 05:37 05:37 WBC 11.2 H (3.8-10.6) k/uL APTT 38.3 H (22.0-30.0) sec Sodium 133 L (137-145) mmol/L BUN 33 H (9-20) mg/dL C-Reactive Protein 2.8 H (<1.0) mg/dL Assessment and Plan Assessment: Acute bilateral pulmonary emboli without CT evidence of right-sided heart strain, no signs of hemodynamic instability; CT angio protocol, which demonstra birana multiple scattered filling defects within the distal right pulmonary artery, multiple segmental and subsegmental branches to the right upper and lower lobes, and and segmental branches in the left upper lobe. No CT evidence of right- sided heart strain. There was a right middle lobe infiltrate or more likely infarct. Suspect pulmonary infarct, as outlined above Chest pain, secondary to above; related to PE versus pulmonary infarction; CT of the chest did not reveal right middle lobe infiltrate versus infarct; no recommendation to start patient on antibiotics at this time Acute leukocytosis, reactive to above; no significant signs of infection; will monitor CBC, CRP and procalcitonin; further workup if blood work is normal Anion gap metabolic acidosis Hypertension; lisinopril 20 mg twice daily DVT prophylaxis; IV heparin CODE STATUS; full code
--- NOTE | 2024-07-17 16:31 | P.GSCN ---
History of Present Illness Consult date: 07/17/24 History of present illness: CHIEF COMPLAINT: Ostomy malfunction HISTORY OF PRESENT ILLNESS: The patient is a 59-year-old male less than 3 weeks out from emergent diverting colostomy for perforated sigmoid diverticulitis with sepsis. is at bedside. Patient was discharged less than 2 weeks ago and returns with bilateral pulmonary emboli. Patient had just been seen by a area field manager where no surgical invention is recommended for at least 6 months. Patient denies any abdominal pain. He has lost moderate weight over 10+ pounds in 2 weeks. Per patient and family, he will be discharged in 24 hours. Ostomy bag was recently changed. Also cathy just discontinued 48 hours ago along the lower abdomen. PAST MEDICAL HISTORY: See list and reviewed PAST SURGICAL HISTORY: See list and reviewed MEDICATIONS: See list and reviewed ALLERGIES: See list and reviewed SOCIAL HISTORY: See list and reviewed FAMILY HISTORY: See list and reviewed REVIEW OF ORGAN SYSTEMS: CONSTITUTIONAL: No fevers or chills. Has weight loss EYES: Denies any trouble with vision. No glasses. HEENT: No difficulties with hearing. No nosebleeds. No difficulty swallowing. RESPIRATORY: New atypical chest pain consistent with bilateral pulmonary emboli CARDIOVASCULAR: Denies any chest pain, palpitations, or recent heart attacks. GASTROINTESTINAL: Perforated diverticulitis with new colostomy GENITOURINARY: Denies any blood in urine or increased urinary frequency. NEUROLOGICAL: Denies any numbness or tingling along the distal extremities. No seizure disorders or headaches. MUSCULOSKELETAL: Denies any back pain, stiffness or joint arthritis. SKIN: No current skin cancer. No rash. PSYCHIATRIC: Denies current depression or suicidal thoughts. ENDOCRINE: Denies current thyroid disorders. Denies any blood sugar glucose intolerance. HEME/LYMPHATIC: Denies any lumps and bumps around the neck. No recent deep venous thrombosis. ALLERGY/IMMUNOLOGY: No immunoglobulin therapy. No immune deficiencies. BREAST: Denies current breast lumps, pain or nipple discharge. PHYSICAL EXAM: VITALS: Reviewed CONSTITUTIONAL: Well developed and in no acute distress. EYES: Conjuctivae without sclera icterus. Extraocular movements grossly intact. HEAD, EARS, NOSE, THROAT: Moist buccal mucosa. Head is atraumatic, normocephalic. Hears conversational speech. No nasal drainage. NECK: Supple. No JV distention. No thyroidomegaly. RESPIRATORY: Non-labored respirations and equal bilateral excursions. No gross wheezes. CARDIOVASCULAR: Palpable 2+ radial pulses. ABDOMEN: Ostomy appliance along with stool and flatus. Mildly has since 3-5 o'clock. No cellulitis. LYMPH: No neck lymphadenopathy. MUSCULOSKELETAL: No clubbing cyanosis or edema SKIN: Warm and well perfused with good skin turgor. NEUROLOGIC: Cranial nerves II through XII grossly intact. No focal or lateralizing signs. PSYCH: Appropriate affect. Alert and oriented to person, place and time. Displays appropriate insight. CLINCAL LABS: Reviewed. WBC elevated on admission 14,000 down to 12,000, leukocytosis. Sodium low 133, hyponatremia RADIOLOGY: Report reviewed of CTA consistent with bilateral pulmonary emboli. RECORDS: previous old records reviewed from prior hospitalization for perforated diverticulitis and recent discharge ASSESSMENT: 1. Colostomy malfunction 2. History of sepsis status post colectomy for perforated diverticulitis 3. Bilateral pulmonary emboli PLAN: 1. Agree with no surgical invention per area field manager until clear. Extensive discussion performed with patient and at bedside given very high risk nature for any surgical intervention prior to clearance from recent bilateral pulmonary emboli 2. Consultation to ostomy wound care nurse for mild ostomy dehiscence. ADVANCE DIRECTIVE: CODE STATUS in chart Thank you for this kind consultation. Past Medical History Past Medical History: Hypertension Additional Past Medical History / Comment(s): kidney stones History of Any Multi-Drug Resistant Organisms: None Reported Past Surgical History: Bowel Resection, Orthopedic Surgery Additional Past Surgical History / Comment(s): DENTAL, R hand surgery. colostomy Past Anesthesia/Blood Transfusion Reactions: No Reported Reaction Additional Past Anesthesia/Blood Transfusion Reaction / Comm: never had blood transfusion Past Psychological History: No Psychological Hx Reported Smoking Status: Current every day smoker Past Alcohol Use History: Occasional Past Drug Use History: None Reported Medications and Allergies Home Medications Medication Instructions Recorded Confirmed Type lisinopriL [Zestril] 20 mg PO BID 06/29/24 07/15/24 History Ibuprofen [Motrin] 600 mg PO Q8HR PRN #30 tab 07/02/24 07/15/24 Rx Acetaminophen Tab [Tylenol Tab] 1,000 mg PO Q6HR PRN #30 tablet 07/03/24 07/15/24 Rx Simethicone 40 mg/0.6 ml Drops 40 mg PO Q6HR PRN #30 ml 07/03/24 07/15/24 Rx [Mylicon Drops] Allergies Allergy/AdvReac Type Severity Reaction Status Date / Time iodine Allergy Anaphylaxis Verified 07/15/24 14:54 shellfish derived Allergy Rash/Hives Verified 07/15/24 14:54 Surgical - Exam Vital Signs Temp Pulse Resp BP Pulse Ox 97.6 F 107 H 20 116/66 98 07/15/24 13:02 07/15/24 13:02 07/15/24 13:02 07/15/24 13:02 07/15/24 13:02 Results - Labs 07/17/24 05:37 07/17/24 05:37 Abnormal Lab Results - Last 24 Hours (Table) 07/17/24 07/17/24 07/17/24 Range/Units 05:37 05:37 05:37 WBC 11.2 H (3.8-10.6) k/uL APTT 38.3 H (22.0-30.0) sec Sodium 133 L (137-145) mmol/L BUN 33 H (9-20) mg/dL C-Reactive Protein 2.8 H (<1.0) mg/dL Diabetes panel 07/17/24 Range/Units 05:37 Sodium 133 L (137-145) mmol/L Potassium 4.7 (3.5-5.1) mmol/L Chloride 100 (98-107) mmol/L Carbon Dioxide 24 (22-30) mmol/L BUN 33 H (9-20) mg/dL Creatinine 0.80 (0.66-1.25) mg/dL Glucose 91 (74-99) mg/dL Calcium 9.5 (8.4-10.2) mg/dL Calcium panel 07/17/24 Range/Units 05:37 Calcium 9.5 (8.4-10.2) mg/dL Pituitary panel 07/17/24 Range/Units 05:37 Sodium 133 L (137-145) mmol/L Potassium 4.7 (3.5-5.1) mmol/L Chloride 100 (98-107) mmol/L Carbon Dioxide 24 (22-30) mmol/L BUN 33 H (9-20) mg/dL Creatinine 0.80 (0.66-1.25) mg/dL Glucose 91 (74-99) mg/dL Calcium 9.5 (8.4-10.2) mg/dL Adrenal panel 07/17/24 Range/Units 05:37 Sodium 133 L (137-145) mmol/L Potassium 4.7 (3.5-5.1) mmol/L Chloride 100 (98-107) mmol/L Carbon Dioxide 24 (22-30) mmol/L BUN 33 H (9-20) mg/dL Creatinine 0.80 (0.66-1.25) mg/dL Glucose 91 (74-99) mg/dL Calcium 9.5 (8.4-10.2) mg/dL
[2024-07-17] MEDS: HYDROcodone/APAP 7.5-325MG 1 EACH TAB PO PRN (19:53)
[2024-07-17 21:11] VITALS: TEMP 97.7
[2024-07-18 07:35] LABS: Basophils % (A) 0 %; Eosinophils % (A) 0 %; HCT 41.8 % (39.0-53.0); HGB 13.4 gm/dL (13.0-17.5); Lymphocytes # (A) 2.4 k/uL (1.0-4.8); Lymphocytes % (A) 25 %; MCH 30.2 pg (25.0-35.0); MCHC 32.1 g/dL (31.0-37.0); MCV 93.9 fL (80.0-100.0); Mean Platelet Volume 7.5; Monocytes # (A) 0.9 k/uL (0-1.0); Monocytes % (A) 9 %; Neutrophils # (A) 5.9 k/uL (1.3-7.7); Neutrophils % (A) 62 %; Platelet Count 341 k/uL (150-450); RBC 4.45 m/uL (4.30-5.90); RDW 13.1 % (11.5-15.5); WBC 9.5 k/uL (3.8-10.6)
[2024-07-18 07:57] LABS: African American GFR (CKD) >90 (>60 ml/min/1.73 sqM); Anion Gap 8 mmol/L; Blood Urea Nitrogen 29 mg/dL (9-20); Calcium 9.6 mg/dL (8.4-10.2); Carbon Dioxide 23 mmol/L (22-30); Chloride 102 mmol/L (98-107); Glucose 85 mg/dL (74-99); Non-African American GFR(CKD) >90 (>60 ml/min/1.73 sqM); Potassium 4.6 mmol/L (3.5-5.1); Sodium 133 mmol/L (137-145)
[2024-07-18 08:20] VITALS: PULSE 98
[2024-07-18 09:43] VITALS: BP 111/58
--- NOTE | 2024-07-18 13:19 | P.PN ---
Subjective Progress Note Date: 07/18/24 Patient is a 59-year-old male with past medical history significant for hypertension. Of note, patient recently hospitalized for complicated diverticulitis with perforation and an exploratory laparotomy with sigmoid colectomy and end colostomy performed on 06/29/2024. Patient was eventually d ischarged on 07/04/2024. He did receive DVT prophylaxis while hospitalized. Patient presented the emergency department yesterday afternoon with a chief complaint of severe right-sided chest pain that developed suddenly overnight. Progressively worsening throughout the morning. Also, reported left calf pain described as a "knot", that is since gone away. D-dimer was elevated hence the CT angio protocol, which demonstrated multiple scattered filling defects within the distal right pulmonary artery, multiple segmental and subsegmental branches to the right upper and lower lobes, and and segmental branches in the left upper lobe. No CT evidence of right-sided heart strain. There was a right middle lobe infiltrate or more likely infarct. Venous Doppler was unremarkable for DVT bilaterally. Patient was started on high intensity heparin protocol. Hemodynamics remained stable. On room air oxygen. He was admitted to the cardiac stepdown unit. CBC: WBC count 14, hemoglobin 15.6, platelets 422. Baseline aPTT 21.5 CMP: Sodium 137, potassium 4.9, chloride 104, serum bicarb 11, BUN 38, creatinine 1.09, glucose 137. Magnesium 2.4. LFTs not elevated. Troponin less than 0.012 NT proBNP less than 20. Patient is currently being evaluated on the cardiac stepdown unit. He is resting comfortably on room air oxygen. Nontachypneic. Denies any coughing, hemoptysis. Denies any palp itations, lightheadedness, syncopal events. Chest pain described as if getting punched in the right chest, sudden onset, currently rated 4 or 5 out of 10 point numerical scale. States that as needed morphine helps. Did receive a 1 L fluid bolus while in the ED. Blood pressure has been stable. No recent falls or trauma. Left lower quadrant colostomy is functional and appears viable. Midline abdominal incision is pink and approximated with cathy. Current most recent vital signs: Afebrile, heart rate 73 bpm, blood pressure 115/80 mmHg, nontachypneic, SpO2 is 93% on room air 07/17/2024, patient is still having some pleuritic chest pain specially on the right. Pain is around 4 out of 10 in severity. Ambulating. Still on IV heparin. Hemodynamically stable. Echocardiogram was noted the patient has a preserved LV function, ejection fraction 55 to 60%, moderate RA dilatation, PA pressures cannot be estimated. Nevertheless, the patient is doing well. Hemodynamically stable. 1 second 11 hemoglobin 14.2 and BUN is 33 with a creatinine of 0.8. On 07/18/2024 the patient is being seen for a follow-up. Pleuritic right-sided chest wall pain is improved. Ambulating in the hallway. Hemodynamically stable. Currently on Eliquis. Denies having any significant shortness of breath. No new complaints otherwise for now. Colostomy is functional. Objective - Vital Signs Vital signs: Vital Signs Temp 97.7 F 07/18/24 04:00 Pulse 98 07/18/24 09:32 Resp 18 07/18/24 09:32 BP 111/58 07/18/24 09:43 Pulse Ox 96 07/18/24 08:19 FiO2 Intake & Output 07/17/24 07/18/24 07/18/24 18:59 06:59 18:59 Intake Total 990 118 Balance 990 118 Weight 84.7 kg Intake: Oral 990 118 Other: Voiding Method Toilet Toilet Urinal Urinal # Voids 1 - Exam GENERAL EXAM: Alert, 59-year-old male, lying in bed, on room air, comfortable in no apparent distress. HEAD: Normocephalic and atraumatic EYES: Normal reaction of pupils, equal size. NOSE: Clear with pink turbinates. THROAT: No erythema or exudates. NECK: No masses, no JVD. CHEST: No chest wall deformity. LUNGS: Equal air entry with no crackles, wheeze, rhonchi or dullness. On room air. No conversational dyspnea or accessory muscle use.. CVS: S1 and S2 normal with no audible murmur, regular rhythm. No extra heart sounds ABDOMEN: Abdomen is flat, midline abdominal incision is approximated and pink with cathy, functional colostomy on the left, stoma appears pink and viable, active bowel sounds, no hepatosplenomegaly, no guarding or rigidity. SPINE: No scoliosis or deformity SKIN: No rashes CENTRAL NERVOUS SYSTEM: No focal deficits, tone is normal in all 4 extremities. EXTREMITIES: There is no peripheral edema, clubbing, or cyanosis. Peripheral pulses are intact. - Labs CBC & Chem 7: 07/18/24 06:24 07/18/24 06:24 Labs: Abnormal Lab Results - Last 24 Hours (Table) 07/18/24 Range/Units 06:24 Sodium 133 L (137-145) mmol/L BUN 29 H (9-20) mg/dL Assessment and Plan Assessment: Acute bilateral pulmonary emboli without CT evidence of right-sided heart strain, no signs of hemodynamic instability; CT angio protocol, which demonstrated multiple scattered filling defects within the distal right pulmonar y artery, multiple segmental and subsegmental branches to the right upper and lower lobes, and and segmental branches in the left upper lobe. No CT evidence of right-sided heart strain. There was a right middle lobe infiltrate or more likely infarct. Suspect pulmonary infarct, as outlined above Chest pain, secondary to above, pleuritic in nature on the right, improving Acute leukocytosis, reactive to above, improving Anion gap metabolic acidosis, recovered Recent hospitalization within the last 30 days History of complicated diverticulitis with perforation and exploratory laparotomy with sigmoid colectomy and end colostomy performed on 06/29/2024 History of hypertension Plan: Pleuritic right-sided chest wall pain is improving Remains on room air oxygen Echocardiogram was noted, preserved LV function, RVSP cannot be estimated Continue anticoagulation with Eliquis per protocol No CT evidence of right-sided heart strain, follow-up echocardiogram is pending No signs of hemodynamic instability The patient can be discharged home today. The reversal for his colostomy needs to be deferred for at least 6 months. I had a lengthy discussion with the patient. Explained to him the findings. The patient will follow-up with me in the office on outpatient basis. Cleared for discharge from a pulmonary standpoint.
== END 2024-07-18 12:26 | disposition home or self-care (01) ==
LOC: EC 13:00 → 3SCARD 16:10
PROVIDERS: ADMIT Hospitalist; ATTEND Hospitalist
DX: I26.99 Other pulmonary embolism without acute cor pulmonale (principal); D72.829 Elevated white blood cell count, unspecified; E87.20 Acidosis, unspecified; F17.200 Nicotine dependence, unspecified, uncomplicated; I10 Essential (primary) hypertension; K94.03 Colostomy malfunction; Z90.49 Acquired absence of other specified parts of digestive tract; Z79.899 Other long term (current) drug therapy; Z87.19 Personal history of other diseases of the digestive system; Z86.19 Personal history of other infectious and parasitic diseases
CPT/HCPCS: 96376 ×5; 96366 ×4; 96375 ×2; 96361; 96365; 99285; 36415; 93005; 93306; 85379; 83880; 80053; 80048 ×3; 83690; 83735; 84484; 85025 ×4; 85610; 85730 ×3; 86140; 84145; 93970; 71275; G0378 ×4; J2270 ×4; J1200; J3490; J1644 ×4; J1171; Q9967; J2919

== ENCOUNTER → 2024-11-04 | Outpatient (CLI) | payer BC ==
--- NOTE | 2024-11-04 12:33 | CT ---
EXAMINATION TYPE: CT angio chest DATE OF EXAM: 11/04/2024 COMPARISON: CT chest July 15, 2024 CLINICAL INDICATION: Male, 59 years old with history of I26.99 OTHER PULMONARY EMBOLISM WITHOUT ACUTE COR, Follow up recent PE., TECHNIQUE: CTA scan of the thorax is performed with IV Contrast, patient injected with 100 ml mL of Isovue 370, pulmonary embolism protocol. MIP Images are created on CT scanner and reviewed. CT DLP: 439.1 mGycm. Automated Exposure Control for Dose Reduction was Utilized. FINDINGS: LUNGS: Focal mild to moderate scarring in the right middle lobe is redemonstrated. Left lung remains clear. No pleural effusion or pneumothorax seen bilaterally. The tracheobronchial tree is patent. HEART: Size within normal limits. Moderate coronary artery calcifications present. MEDIASTINUM: There is satisfactory enhancement of the pulmonary artery and its branches, there is no CT evidence for acute pulmonary embolism currently. Interval resolution of bilateral acute pulmonary emboli. There are no greater than 1 cm hilar or mediastinal lymph nodes. No pericardial effusion i s seen. OTHER: No additional significant abnormality is seen. IMPRESSION: Resolved bilateral pulmonary emboli. No new acute pulmonary process. [facility], , 11/04/2024 12:30 PM
== END | disposition home or self-care (01) ==
LOC: RADCTMAIN 10:36
PROVIDERS: ATTEND Internal Medicine Critical Care Medicine
DX: I26.99 Other pulmonary embolism without acute cor pulmonale (principal)
CPT/HCPCS: 71275; Q9967

== ENCOUNTER 2024-11-22 13:04 | Day surgery (SDC) | payer BC ==
[~2024-11-22 13:04] MED LIST: LIDOCAINE 1% (10MG/ML) FOR IV START INTRADERMA PRN
[2024-11-22] MEDS: IV FLUID CONTINUATION 1,000 ML IV ONE (13:18)
[2024-11-22 13:30] VITALS: TEMP 97.5
[2024-11-22 13:50] LABS: Basophils # (A) 0.08 10*3/uL (0.00-0.10); Basophils % (A) 0.8 %; Eosinophils # (A) 0.41 10*3/uL (0.04-0.35); Eosinophils % (A) 3.9 %; HCT 49.9 % (39.6-50.0); HGB 17.3 g/dL (13.0-17.0); Lymphocytes % (A) 29.6 %; MCH 32.1 pg (27.0-32.0); MCHC 34.7 g/dL (32.0-37.0); MCV 92.6 fL (80.0-97.0); Mean Platelet Volume 9.6 fL (9.5-12.2); Monocytes # (A) 0.84 10*3/uL (0.20-1.00); Neutrophils % (A) 57.4 %; Platelet Count 304 10*3/uL (140-440); RBC 5.39 10*6/uL (4.40-5.60); RDW 12.5 % (11.5-14.5); WBC 10.46 10*3/uL (4.50-10.00)
[2024-11-22] MEDS: LACTATED RINGERS 1,000 ML IV SCH (13:50)
[2024-11-22 14:01] LABS: ALT 21 U/L (4-49); AST 23 U/L (17-59); African American GFR (CKD) >90 (>60 ml/min/1.73 sqM); Albumin 4.7 g/dL (3.5-5.0); Alkaline Phosphatase 124 U/L (38-126); Anion Gap 13 mmol/L; Blood Urea Nitrogen 22 mg/dL (9-20); Calcium 10.4 mg/dL (8.4-10.2); Carbon Dioxide 20 mmol/L (22-30); Chloride 107 mmol/L (98-107); Glucose 88 mg/dL (74-99); Non-African American GFR(CKD) >90 (>60 ml/min/1.73 sqM); Potassium 4.4 mmol/L (3.5-5.1); Sodium 140 mmol/L (137-145); Total Protein 7.7 g/dL (6.3-8.2)
[2024-11-22] MEDS ORDERED: LIDOCAINE 1% INJ 10MG/ML (20 ML MDV) ONE (14:16)
[2024-11-22] MEDS ORDERED: PROPOFOL 10 MG/ML 20 ML VIAL IV ONE (14:16)
--- NOTE | 2024-11-22 14:39 | P.OP ---
Date of Procedure: 11/22/24 Preoperative Diagnosis: History of perforated diverticulitis Postoperative Diagnosis: Mild diverticulosis Procedure(s) Performed: Colonoscopy Anesthesia: MAC Surgeon: Juvencio Vasquez Pathology: none sent Condition: stable Disposition: PACU Description of Procedure: The patient was placed on the endoscopy table in the lateral position. He received IV sedation. Digital rectal exam was performed. This revealed no abnormalities. The flexible colonoscope was then placed into the anus and passed throughout the stump. This measured approximately 22 cm. Scope was withdrawn. The scope was introduced through the colostomy. The colonoscope was then advanced to the ileocecal valve. The cecum, ascending and transverse colon appeared normal. Scope was then brought back in the remaining left colon. Scope was withdrawn through the colostomy. There was some minimal diverticular changes seen throughout the colon.
[2024-11-22] MEDS: IPRATROPIUM-ALBUTEROL 3 ML NEB INHALATION STA (15:05)
[2024-11-22 15:11] VITALS: BP 112/66; PULSE 88; RESP 20
== END 2024-11-22 15:32 | disposition home or self-care (01) ==
LOC: ORWHC2ENDO 13:04
PROVIDERS: ATTEND Surgery
DX: K57.30 Diverticulosis of large intestine without perforation or abscess without bleeding (principal); Z87.19 Personal history of other diseases of the digestive system; I10 Essential (primary) hypertension; F17.210 Nicotine dependence, cigarettes, uncomplicated; Z87.442 Personal history of urinary calculi; Z79.899 Other long term (current) drug therapy; Z79.01 Long term (current) use of anticoagulants; Z98.890 Other specified postprocedural states; Z91.013 Allergy to seafood
CPT/HCPCS: 86900; 86901; 80053; 85025; 86850; 44388; J2003; J2704

== ENCOUNTER 2024-11-23 05:43 | Inpatient (IN) | payer BC ==
[~2024-11-23 05:43] MED LIST changes: +ENOXAPARIN 30 MG/0.3 ML SYRINGE SQ PRN; -LIDOCAINE 1% (10MG/ML) FOR IV START INTRADERMA PRN
[2024-11-23] MEDS: IV FLUID CONTINUATION 1,000 ML IV ONE (06:38)
[2024-11-23] MEDS: LACTATED RINGERS 1,000 ML IV SCH (06:40)
[2024-11-23] MEDS: ACETAMINOPHEN TAB 500 MG TAB PO PRN (06:40)
[2024-11-23] MEDS: ONDANSETRON 4 MG/2 ML VIAL IVP ONE (06:41)
[2024-11-23] MEDS: DEXAMETHASONE SOD PHOSPHATE 4 MG/ML 1 ML VIAL IV ONE (06:41)
[2024-11-23] MEDS: SCOPOLAMINE 1 MG/72 HR PATCH TRANSDERM ONE (07:11)
[2024-11-23] MEDS: MIDAZOLAM 2 MG/2 ML VIAL IV PRN (07:25)
[2024-11-23] MEDS ORDERED: KETAMINE HCL IN 0.9 % NACL 50 MG/5 ML SYRINGE ONE (07:34)
[2024-11-23] MEDS ORDERED: MIDAZOLAM 2 MG/2 ML VIAL ONE (07:34)
[2024-11-23] MEDS ORDERED: ROPIVACAINE 5 MG/ML 30 ML VIAL ONE (07:34)
[2024-11-23] MEDS ORDERED: ROCURONIUM 10 MG/ML (5 ML VIAL) IV ONE (07:34)
[2024-11-23] MEDS ORDERED: SUCCINYLCHOLINE CHLORIDE 200 MG/10 ML VIAL IV ONE (07:34)
[2024-11-23] MEDS ORDERED: HYDROmorphone (PF) 1 MG/ML ONE (07:34)
[2024-11-23] MEDS ORDERED: fentaNYL (PF) 50 MCG/ML 2 ML AMP ONE (07:34)
[2024-11-23] MEDS ORDERED: NEOSTIGMINE 1 MG/ML 10 ML VIAL ONE (07:34)
[2024-11-23] MEDS ORDERED: DEXAMETHASONE SOD PHOSPHATE 4 MG/ML 1 ML VIAL ONE (07:34)
[2024-11-23] MEDS ORDERED: PROPOFOL 10 MG/ML 20 ML VIAL IV ONE (07:34)
[2024-11-23] MEDS ORDERED: GLYCOPYRROLATE 0.2 MG/ML 2 ML VIAL ONE (07:34)
[2024-11-23] MEDS ORDERED: ePHEDrine 50 MG/ML 1 ML VIAL ONE (07:34)
[2024-11-23] MEDS ORDERED: SODIUM CHLORIDE 0.9% (PF) 10 ML VIAL ONE (07:34)
[2024-11-23] MEDS ORDERED: LIDOCAINE 1% INJ 10MG/ML (20 ML MDV) ONE (07:34)
[2024-11-23] MEDS: ceFAZolin 2 GM in DEXTROSE 5% IN WATER 50 ML IVPB PRN (07:39)
[2024-11-23] MEDS: metroNIDAZOLE-NS PMX 500 MG in SALINE 1 100ML.BAG IVPB PRN (07:53)
[2024-11-23] MEDS: LACTATED RINGERS 1,000 ML IV ONE ×2 (09:05→10:31)
[2024-11-23] MEDS ORDERED: ONDANSETRON 4 MG/2 ML VIAL IVP PRN (09:34)
[2024-11-23] MEDS ORDERED: METOCLOPRAMIDE 5 MG/ML 2 ML VIAL IVP PRN (09:34)
--- NOTE | 2024-11-23 09:34 | P.OP ---
Date of Procedure: 11/23/24 Preoperative Diagnosis: History of perforated diverticulitis Postoperative Diagnosis: Tree of perforated diverticulitis Procedure(s) Performed: Reversal of colostomy Repair of parastomal hernia Anesthesia: KALEB Surgeon: Juvencio Vasquez Estimated Blood Loss (ml): 25 Pathology: other (Colon) Condition: stable Disposition: PACU Description of Procedure: The patient was placed on the operative table in the supine position. He received general endotracheal tube anesthesia. He was then placed in dorsolithotomy position. His abdomen was prepped and draped you sterile fashion. A Ioban was placed over top of the abdomen. The skin was incised midline. Then using electrocautery the subcu tissue divided. The fascia was divided. And then the peritoneal Was entered. The Bookwalter tracks placed the wound. The colostomy site was visualized. The colostomy was then transected next the fascia using a SOPHIE stapler. At this point the pelvis was examined. The rectal stump was found. The left colon was mobilized by dividing the white line of Toldt's. After adequate length of colon was achieved. The colon was opened and then the anvil for the 29 mm EEA stapler was placed in the colon. And then the distal end of the colon was transected with a SOPHIE stapler. The anvil was placed through the staple line. And then the mesocolon was divided with the Enseal device. The specimen of the pathology. Next the graduate assistant athletic trainer placed anal dilators the anus. And then the 29 mm EEA stapler was placed into the anus and passed into the rectum. The spike was driven through the anterior rectal wall. And then the anvil was clamped to the stapler. The stapler then closed and fired. The stapler is all withdrawn. 2 intact tissue rings were withdrawn from the stapler. Using a bowel clamp the bowel was occluded proximal to the staple line. I then using the rigid sigmoidoscope the rectum was insufflated with air. There was no extravasation of air seen from the staple line when tested under water. Enough air was placed into the rectum so that air would escape from the anus. The fascia was then closed with looped #1 PDS suture. The skin was closed with cathy. And then a towel was placed over top of cathy. The colostomy site was then examined. Using electrocautery the mucocutaneous junction was divided. I then use electrocautery the remaining colon stump was excised from the colostomy site. The patient had a small parastomal hernia. The Closs site closure was closed using #1 STRATAFIX suture. The skin was closed with cathy. The Prevena wound system was placed over top of the close skin. Patient was sent to recovery room in stable condition.
[2024-11-23] MEDS: HYDROmorphone 0.5 MG/0.5 ML SYRINGE IVP PRN (09:38)
--- NOTE | 2024-11-23 10:05 | P.ANPRN ---
Procedure Note - Anesthesia - Nerve Block Performed Bilateral Erector Spinae Single Time Out Performed: Yes (0724) Date of Procedure: 11/23/24 Location of Patient: PreOp Indication: Acute Post-Operative Pain, Dx/Pain Location (Abdomen), Requested by Surgeon Specifically requested for management of pain by DrKim: Juvencio Vasquez Sedation Type: Sedate with meaningful contact maintained Preparation: Sterile Prep Position: Prone Catheter: None Needle Types: Pajunk Needle Gauge: 21 (100 mm) Ultrasound used to visualize needle placement: Yes Ultrasound used to observe medication spread: Yes Injectate: 0.5% Ropivacaine (see comment for volume) (20 cc + 4mg of decadron + 10 cc of saline on each side) Blood Aspirated: No Pain Paresthesia on Injection Noted: No Resistance on Injection: Normal Image Stored and Saved: Yes Events: Uneventful and Well Tolerated
[2024-11-23] MEDS: fentaNYL (PF) 50 MCG/ML 2 ML AMP IV PRN (10:26)
[2024-11-23] MEDS: KETOROLAC 15 MG/ML 1 ML VIAL IVP PRN (10:53)
[2024-11-23] MEDS: MEPERIDINE 25 MG/ML SYRINGE IVP STA (14:03)
[2024-11-23] MEDS: HYDROmorphone 1 MG/ML 1 ML SYRINGE IVP PRN (14:46)
[2024-11-23] MEDS: PANTOPRAZOLE 40 MG/10 ML VIAL IVP SCH (14:47)
[2024-11-23 14:52] LABS: Basophils # (A) 0.02 10*3/uL (0.00-0.10); Basophils % (A) 0.1 %; Eosinophils # (A) 0.01 10*3/uL (0.04-0.35); Eosinophils % (A) 0.1 %; HCT 46.7 % (39.6-50.0); HGB 15.7 g/dL (13.0-17.0); Lymphocytes # (A) 0.65 10*3/uL (0.90-5.00); Lymphocytes % (A) 4.3 %; MCH 31.7 pg (27.0-32.0); MCHC 33.6 g/dL (32.0-37.0); MCV 94.3 fL (80.0-97.0); Mean Platelet Volume 9.4 fL (9.5-12.2); Monocytes # (A) 0.73 10*3/uL (0.20-1.00); Monocytes % (A) 4.8 %; Neutrophils # (A) 13.68 10*3/uL (1.80-7.70); Neutrophils % (A) 90.2 %; Platelet Count 245 10*3/uL (140-440); RBC 4.95 10*6/uL (4.40-5.60); RDW 12.4 % (11.5-14.5); WBC 15.16 10*3/uL (4.50-10.00)
--- NOTE | 2024-11-23 14:54 | P.CNPUL ---
History of Present Illness Consult date: 11/23/24 Requesting physician: Osito Amin Reason for consult: pulmonary embolism Chief complaint: Colostomy reversal History of present illness: This is a pleasant 59-year-old male patient with a known history of complicated diverticulitis with perforation requiring exploratory laparotomy and sigmoid colectomy and end colostomy on June 29, 2024. Within a few weeks of being home he developed increasing shortness of breath and was found to have acute bilateral pulmonary emboli and was hospitalized in July 2024 eventually placed on Eliquis and discharged to home. A follow-up CT angiogram in October 2024 revealed no evidence of pulmonary embolism. He had continued on the Eliquis for 1 more month. He did hold his Eliquis on November 19, 2024 for plans for elective reversal of the colostomy which was performed today November 23, 2024. He is seen in consultation. He is awake and alert in no acute distress. Resting comfortably in bed. Maintaining O2 saturations in the 90s on 3 L/min per nasal cannula. He is working with the incentive spirometer. He is currently on Lovenox 40 mg subcu daily. He is receiving D5 and a half normal saline with 20 of KCl at 125 mL/h. His pain is currently well-managed. Review of Systems REVIEW OF SYSTEMS: CONSTITUTIONAL: Denies any recent significant weight loss or weight gain. EYES: Denies change in vision. EARS, NOSE, MOUTH, THROAT: Denies headaches, denies sore throat. CARDIOVASCULAR: Denies chest pain, palpitations or syncopal episodes. RESPIRATORY: Denies shortness of breath, cough, congestion or hemoptysis. GASTROINTESTINAL: Positive for postsurgical pain. Denies change in appetite, denies abdominal pain GENITOURINARY: Denies hematuria, denies infections. MUSKULOSKELETAL: Denies pain, denies swelling. INTEGUMENTARY: Denies rash, denies eczema. NEUROLOGICAL: Denies recent memory loss, no recent seizure activity. PSYCHIATRIC: Denies anxiety, denies depression. HEMATOLOGIC/LYMPHATIC: Denies anemia, denies enlarged lymph nodes. Past Medical History Past Medical History: Hypertension, Pulmonary Embolus (PE) Additional Past Medical History / Comment(s): kidney stones, diverticulitis, had PE after bowel surgery History of Any Multi-Drug Resistant Organisms: None Reported Past Surgical History: Bowel Resection, Orthopedic Surgery Additional Past Surgical History / Comment(s): DENTAL, R hand surgery. colostomy Past Anesthesia/Blood Transfusion Reactions: No Reported Reaction Additional Past Anesthesia/Blood Transfusion Reaction / Comment(s): never had blood transfusion Smoking Status: Current every day smoker - Past Family History Father Family Medical History: No Reported History Medications and Allergies Home Medications Medication Instructions Recorded Confirmed Type lisinopriL [Zestril] 20 mg PO BID 06/29/24 11/23/24 History Acetaminophen Tab [Tylenol] 1,000 mg PO Q6HR PRN #30 tablet 07/03/24 11/23/24 Rx Apixaban [Eliquis Starter Pack 5 mg PO BID 11/18/24 11/23/24 History (for VTE)] Allergies Allergy/AdvReac Type Severity Reaction Status Date / Time iodine Allergy Anaphylaxis Verified 11/23/24 06:17 shellfish derived Allergy Rash/Hives Verified 11/23/24 06:17 Physical Exam Vitals: Vital Signs Temp Pulse Resp BP BP Pulse Ox 11/23/24 12:28 97.5 F L 58 L 14 127/72 95 11/23/24 11:30 65 14 111/43 97 11/23/24 11:00 64 14 100/63 96 11/23/24 10:45 75 14 101/51 96 11/23/24 10:30 64 14 128/72 97 11/23/24 10:15 78 14 97 11/23/24 09:56 68 14 102/49 96 11/23/24 09:41 76 14 138/50 98 11/23/24 09:26 96.8 F L 84 18 122/71 96 11/23/24 07:30 62 20 105/63 99 11/23/24 06:36 97.3 F L 76 14 98/62 96 Intake and Output 11/22/24 11/23/24 11/23/24 22:59 06:59 14:59 Intake Total 500 1450 Output Total 75 Balance 500 1375 Intake: IV 500 1450 Output: Urine 50 Estimated Blood Loss 25 Other: Weight 90.4 kg GENERAL EXAM: Alert, pleasant 59-year-old male, on 3 L nasal cannula, fairly comfortable in no apparent distress. HEAD: Normocephalic. EYES: Normal reaction of pupils, equal size. NOSE: Clear with pink turbinates. THROAT: No erythema or exudates. NECK: No masses, no JVD. CHEST: No chest wall deformity. LUNGS: Equal air entry with no crackles, wheeze, rhonchi or dullness. CVS: S1 and S2 normal with no audible murmur, regular rhythm. ABDOMEN: Wound VAC to abdomen. No hepatosplenomegaly, normal bowel sounds, no guarding or rigidity. SPINE: No scoliosis or deformity SKIN: No rashes CENTRAL NERVOUS SYSTEM: No focal deficits, tone is normal in all 4 extremities. EXTREMITIES: There is no peripheral edema. No clubbing, no cyanosis. Peripheral pulses are intact. Assessment and Plan Assessment: Reversal of colostomy. Postoperative day #0 History of bilateral pulmonary emboli, provoked following surgery July 2024. Maintained on Eliquis. CT angiogram in October 2024 revealed no evidence of PE History of perforated diverticulitis requiring exploratory laparotomy, sigmoid colectomy and end colostomy on June 29, 2024 Chronic and ongoing tobacco dependence of 40 years Hypertension Plan: The patient was seen and evaluated Medications reviewed Continue Lovenox for now per surgical services Recommend continue Eliquis for 4 weeks postop Follow-up in our office in 1 month Educated regarding smoking cessation NicoDerm patch will be offered Encourage increased use of the incentive spirometer Assure adequate pain control Titrate down/off the FiO2 as tolerated Increase his activity as tolerated We will continue to follow and make further recommendations based on his clinical status I have personally seen and examined the patient, performed the documentation and the assessment and plan as written. Number of minutes spent on the visit: 20 Dictation was produced using [employer] dictation software. Please excuse any grammatical, word or spelling errors. Time with Patient: Greater than 30
[2024-11-23 15:21] LABS: African American GFR (CKD) >90 (>60 ml/min/1.73 sqM); Anion Gap 9 mmol/L; Blood Urea Nitrogen 29 mg/dL (9-20); Calcium 9.8 mg/dL (8.4-10.2); Carbon Dioxide 24 mmol/L (22-30); Chloride 104 mmol/L (98-107); Glucose 126 mg/dL (74-99); Non-African American GFR(CKD) 85 (>60 ml/min/1.73 sqM); Potassium 4.7 mmol/L (3.5-5.1); Sodium 137 mmol/L (137-145)
[2024-11-23] MEDS: D5-0.45% NACL WITH KCL 20MEQ/L 1,000 ML IV SCH (17:24)
--- NOTE | 2024-11-23 21:14 | CONS ---
CONSULTATION REASON FOR CONSULTATION: Regarding pulmonary embolism, other medical issues. REQUESTED BY: Dr. Vasquez. HISTORY OF PRESENT ILLNESS: 59-year-old gentleman with a past medical history of multiple medical problems, had a perforated diverticulitis. The patient had reversal of colostomy and repair of the parastomal hernia by Dr. Vasquez. The patient also had episode of pulmonary embolism. The patient is taking Eliquis. There is no history of fever, rigors, or chills. The patient is sedated postop at this time. PAST MEDICAL HISTORY: Reviewed. Includes diverticulitis perforation, hypertension, pulmonary embolism, history of nephrolithiasis. The rest of the chart is also reviewed. HOME MEDICATIONS: Reviewed. Include Zestril and Eliquis. The dose and rest of medications reviewed. ALLERGIES: Iodine. FAMILY HISTORY: No history of heart disease or strokes in the family. SOCIAL HISTORY: History of smoking. Occasional alcohol. REVIEW OF SYSTEMS: Fourteen-point review of systems negative except as mentioned earlier. PHYSICAL EXAMINATION: VITAL SIGNS: Pulse is 64, blood pressure 100/60, and respirations 14. HEENT: Conjunctivae normal. NECK: No jugular venous distention. CARDIOVASCULAR: S1, S2. RESPIRATIONS: Breath sounds diminished at the bases. Scattered rhonchi. ABDOMEN: Soft. Status post surgery. LEGS: No edema. NERVOUS SYSTEM: No focal deficit. LABORATORY DATA: Not available. ASSESSMENT: 1. Status post reversal of colostomy and repair of parastomal hernia. 2. History of perforated diverticulitis. 3. History of pulmonary embolism. 4. Hypertension. 5. History of nephrolithiasis. RECOMMENDATION: This 59-year-old gentleman presented after surgery. At this time, I would recommend to continue with Lovenox and the patient may be started on Eliquis 1 p.o. if it is okay with surgery. Otherwise, we will continue to monitor. Resume the home medications. Pain management. DVT prophylaxis. Proton pump inhibitors. The patient may be asked to follow with the primary physician and Hematology/Oncology closely after discharge. MMODL / IJN: [id number] /
[2024-11-23] MEDS: FAMOTIDINE 20 MG/2 ML VIAL IV SCH (21:23)
[2024-11-24] MEDS: ALVIMOPAN 12 MG CAPSULE PO SCH (08:08)
[2024-11-24] MEDS: ENOXAPARIN 40 MG/0.4 ML SYRINGE SQ SCH (08:09)
[2024-11-24] MEDS: NICOTINE 14MG/24HR PATCH TRANSDERM SCH (08:45)
[2024-11-24] MEDS: HYDROcodone/APAP 5-325MG 1 EACH TAB PO PRN (12:00)
--- NOTE | 2024-11-24 12:26 | P.PN ---
Subjective Progress Note Date: 11/24/24 SURGICAL PROGRESS NOTE CHIEF COMPLAINT: History of perforated diverticulitis HISTORY OF PRESENT ILLNESS: Patient is postop day #1 status post reversal of colostomy and repair of parastomal hernia. Patient tolerated surgery well. Pain is controlled. He denies any nausea or vomiting. No flatus. Afebrile. WBC 15.16 PHYSICAL EXAM: VITAL SIGNS: Reviewed. GENERAL: Well-developed in no acute distress. HEENT: No sclera icterus. Extraocular movements grossly intact. Moist buccal mucosa. Head is atraumatic, normocephalic. ABDOMEN: Soft. Mildly distended. Prevena wound VAC dressing intact NEUROLOGIC: Alert and oriented. Cranial nerves II through XII grossly intact. ASSESSMENT: 1. History of perforated diverticulitis PLAN: - Continue clear liquid diet - Encourage patient to ambulate - Encourage patient to use incentive spirometer - Continue pain management - Okay to resume Eliquis tomorrow. Patient has history of DVT and PE -Continue Lovenox for DVT prophylaxis and Protonix GI prophylaxis Physician Card Reader note has been reviewed by physician. Signing provider agrees with the documented findings, assessment, and plan of care. Objective - Vital Signs Vital signs: Vital Signs Temp 97.6 F 11/24/24 07:36 Pulse 57 L 11/24/24 07:36 Resp 16 11/24/24 07:36 BP 135/71 11/24/24 07:36 Pulse Ox 98 11/24/24 07:36 FiO2 Intake & Output 11/23/24 11/24/24 11/24/24 18:59 06:59 18:59 Intake Total 1700 Output Total 75 300 Balance 1625 -300 Intake: IV 1450 Intake, IV Titration 250 Amount D5-0.45% NaCl with KCl 250 20Meq/l 1,000 ml @ 125 mls/hr IV .Q8H [facility] Rx#: [id number] Output: Urine 50 300 Estimated Blood Loss 25 Other: Voiding Method Toilet Urinal - Labs CBC & Chem 7: 11/23/24 14:34 11/23/24 14:38 Labs: Abnormal Lab Results - Last 24 Hours (Table) 11/23/24 11/23/24 Range/Units 14:34 14:38 WBC 15.16 H (4.50-10.00) 10*3/uL MPV 9.4 L (9.5-12.2) fL Immature Gran # 0.07 H (0.00-0.04) 10*3/uL Neutrophils # 13.68 H (1.80-7.70) 10*3/uL Lymphocytes # 0.65 L (0.90-5.00) 10*3/uL Eosinophils # 0.01 L (0.04-0.35) 10*3/uL BUN 29 H (9-20) mg/dL Glucose 126 H (74-99) mg/dL
--- NOTE | 2024-11-24 13:23 | PN ---
PROGRESS NOTE DATE OF SERVICE: 11/24/2024 SUBJECTIVE: This 59-year-old gentleman who was admitted after reversal of colostomy, also had history of recent PE. No chest pain. No palpitation. PHYSICAL EXAMINATION: VITAL SIGNS: Pulse is 57, blood pressure 130/70, and respirations 16. CHEST: Clear to auscultation. CARDIOVASCULAR: S1, S2. ABDOMEN: Soft, status post surgery. LABORATORY DATA: Reviewed. ASSESSMENT: 1. Status post reversal of colostomy and repair of parastomal hernia. 2. Elevated WBC. 3. History of perforated diverticulitis. 4. History of pulmonary embolism. 5. Hypertension. 6. History of nephrolithiasis. RECOMMENDATIONS: Recommend to continue current management and continue symptomatic treatment. Otherwise, I would recommend to resume the Eliquis and continue to follow up with Pulmonary as well as Hematology, Oncology as an outpatient. Further recommendations to follow. MMODL / IJN: [id number] /
--- NOTE | 2024-11-24 13:26 | P.PN ---
Subjective Progress Note Date: 11/24/24 This is a pleasant 59-year-old male patient with a known history of complicated diverticulitis with perforation requiring exploratory laparotomy and sigmoid colectomy and end colostomy on June 29, 2024. Within a few weeks of being home he developed increasing shortness of breath and was found to have acute bilateral pulmonary emboli and was hospitalized in July 2024 eventually placed on Eliquis and discharged to home. A follow-up CT angiogram in October 2024 revealed no evidence of pulmonary embolism. He had continued on the Eliquis for 1 more month. He did hold his Eliquis on November 19, 2024 for plans for elective reversal of the colostomy which was performed today November 23, 2024. He is seen in consultation. He is awake and alert in no acute distress. Resting comfortably in bed. Maintaining O2 saturations in the 90s on 3 L/min per nasal cannula. He is working with the incentive spirometer. He is currently on Lovenox 40 mg subcu daily. He is receiving D5 and a half normal saline with 20 of KCl at 125 mL/h. His pain is currently well-managed. The patient is seen today November 24, 2024 in follow-up on the regular medical floor. He is currently resting in bed. Awake and alert in no acute distress. Denies any worsening shortness of breath, cough or congestion. He is maintainin g good O2 saturations in the mid to upper 90s on room air oxygen. He is afebrile. Hemodynamically stable. No new labs today. Tolerating a clear liquid diet. He remains on Lovenox for DVT prophylaxis. Objective - Vital Signs Vital signs: Vital Signs Temp 97.7 F 11/24/24 12:47 Pulse 51 L 11/24/24 12:47 Resp 16 11/24/24 12:47 BP 148/75 11/24/24 12:47 Pulse Ox 96 11/24/24 12:47 FiO2 Intake & Output 11/23/24 11/24/24 11/24/24 18:59 06:59 18:59 Intake Total 1700 Output Total 75 300 Balance 1625 -300 Intake: IV 1450 Intake, IV Titration 250 Amount D5-0.45% NaCl with KCl 250 20Meq/l 1,000 ml @ 125 mls/hr IV .Q8H [facility] Rx#: [id number] Output: Urine 50 300 Estimated Blood Loss 25 Other: Voiding Method Toilet Urinal - Exam GENERAL EXAM: Alert, pleasant 59-year-old male, sitting up in bed, on room air oxygen, comfortable in no apparent distress. HEAD: Normocephalic. EYES: Normal reaction of pupils, equal size. NOSE: Clear with pink turbinates. THROAT: No erythema or exudates. NECK: No masses, no JVD. CHEST: No chest wall deformity. LUNGS: Equal air entry with no crackles, wheeze, rhonchi or dullness. CVS: S1 and S2 normal with no audible murmur, regular rhythm. ABDOMEN: Wound VAC to abdomen. No hepatosplenomegaly, normal bowel sounds, no guarding or rigidity. SPINE: No scoliosis or deformity SKIN: No rashes CENTRAL NERVOUS SYSTEM: No focal deficits, tone is normal in all 4 extremities. EXTREMITIES: There is no peripheral edema. No clubbing, no cyanosis. Peripheral pulses are intact. - Labs CBC & Chem 7: 11/23/24 14:34 11/23/24 14:38 Labs: Abnormal Lab Results - Last 24 Hours (Table) 11/23/24 11/23/24 Range/Units 14:34 14:38 WBC 15.16 H (4.50-10.00) 10*3/uL MPV 9.4 L (9.5-12.2) fL Immature Gran # 0.07 H (0.00-0.04) 10*3/uL Neutrophils # 13.68 H (1.80-7.70) 10*3/uL Lymphocytes # 0.65 L (0.90-5.00) 10*3/uL Eosinophils # 0.01 L (0.04-0.35) 10*3/uL BUN 29 H (9-20) mg/dL Glucose 126 H (74-99) mg/dL Assessment and Plan Assessment: Reversal of colostomy. Postoperative day #1 History of bilateral pulmonary emboli, provoked following surgery July 2024. Maintained on Eliquis. CT angiogram in October 2024 revealed no evidence of PE History of perforated diverticulitis requiring exploratory laparotomy, sigmoid colectomy and end colostomy on June 29, 2024 Chronic and ongoing tobacco dependence of 40 years Hypertension Plan: The patient was seen and evaluated Medications reviewed Continue Lovenox for now per surgical services Plan is to resume Eliquis tomorrow and continue for 4 weeks postop Educated regarding smoking cessation NicoDerm patch in place Continue use of the incentive spirometer Assure adequate pain control Tolerating a clear liquid diet Increase his activity as tolerated To follow-up in our office 1 month post discharge This patient was seen independently by the pulmonary nurse practitioner estela rangel pulmonary issues I have personally seen and examined the patient, performed the documentation and the assessment and plan as written. Number of minutes spent on the visit: 24 Dictation was produced using [employer] dictation software. Please excuse any grammatical, word or spelling errors.
[2024-11-24] MEDS: lisinopriL 20 MG TAB PO SCH (20:38)
[2024-11-24] MEDS: APIXABAN 5 MG TAB PO SCH (20:38)
[2024-11-24] MEDS ORDERED: ENOXAPARIN 40 MG/0.4 ML SYRINGE SQ SCH (21:00)
[2024-11-25 08:18] LABS: ALT 17 U/L (10-49); AST 22 U/L (14-35); Albumin 3.8 g/dL (3.8-4.9); Albumin/Globulin Ratio 1.58 Ratio (1.60-3.17); Alkaline Phosphatase 99 U/L (41-126); Blood Urea Nitrogen 15.9 mg/dL (9.0-27.0); Calcium 9.3 mg/dL (8.7-10.3); Chloride 105 mmol/L (96-109); Globulin 2.4 g/dL (1.6-3.3); Glucose 88 mg/dL (70-110); Potassium 4.6 mmol/L (3.5-5.5); Sodium 140 mmol/L (135-145); Total Bilirubin 0.5 mg/dL (0.3-1.2); Total Protein 6.2 g/dL (6.2-8.2)
[2024-11-25 08:25] LABS: HCT 45.5 % (39.6-50.0); HGB 15.3 g/dL (13.0-17.0); MCHC 33.6 g/dL (32.0-37.0); MCV 95.2 FL (80.0-97.0); Mean Platelet Volume 10.1 FL (9.5-12.2); NRBC Per 100 WBC 0 X 10*3/uL (0.00-0.01); Platelet Count 245 X 10*3/uL (140-440); RBC 4.78 X 10*6/uL (4.40-5.60); RDW 12.6 % (11.5-14.5); WBC 11.57 X 10*3/uL (4.50-10.00)
[2024-11-25 08:26] LABS: Basophils # (A) 0.05 X 10*3/uL (0.00-0.10); Basophils % (A) 0.4 %; Eosinophils # (A) 0.18 X 10*3/uL (0.04-0.35); Eosinophils % (A) 1.6 %; Lymphocytes % (A) 22.5 %; Monocytes # (A) 0.94 X 10*3/uL (0.20-1.00); Monocytes % (A) 8.1 %; Neutrophils # (A) 7.77 X 10*3/uL (1.80-7.70); Neutrophils % (A) 67.1 %
--- NOTE | 2024-11-25 11:35 | P.PN ---
Subjective Progress Note Date: 11/25/24 SURGICAL PROGRESS NOTE CHIEF COMPLAINT: History of perforated diverticulitis HISTORY OF PRESENT ILLNESS: Patient is postop day #2 status post reversal of colostomy and repair of parastomal hernia. Patient had increased pain this morning. But had gone several hours without pain medication. Pain medication restarted. Patient denies any bowel activity. He is passing blood from rectum denies any nausea or vomiting. Also complaining of possible urinary retention. He does have some pain across the lower abdomen when urinating. Denies any nausea or vomiting. Afebrile. WBC 15 down to 11 Hgb 15.3 creatinine 1.0 PHYSICAL EXAM: VITAL SIGNS: Reviewed. GENERAL: Well-developed in no acute distress. HEENT: No sclera icterus. Extraocular movements grossly intact. Moist buccal mucosa. Head is atraumatic, normocephalic. ABDOMEN: Soft. Mildly distended. Prevena wound VAC dressing intact NEUROLOGIC: Alert and oriented. Cranial nerves II through XII grossly intact. ASSESSMENT: 1. History of perforated diverticulitis PLAN: - Continue clear liquid diet - Encourage patient to ambulate - Encourage patient to use incentive spirometer - Continue pain management - Okay to resume Eliquis today. 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 Signing provider agrees with the documented findings, assessment, and plan of care. Objective - Vital Signs Vital signs: Vital Signs Temp 98.7 F 11/25/24 07:15 Pulse 66 11/25/24 07:15 Resp 16 11/25/24 07:15 BP 139/74 11/25/24 07:15 Pulse Ox 96 11/25/24 07:15 FiO2 Intake & Output 11/24/24 11/25/24 11/25/24 18:59 06:59 18:59 Intake Total 1105 1010 240 Output Total 300 Balance 1105 1010 -60 Intake: Intake, IV Titration 625 Amount D5-0.45% NaCl with KCl 625 20Meq/l 1,000 ml @ 125 mls/hr IV .Q8H [facility] Rx#: [id number] Oral 480 1010 240 Output: Post Void Residual 300 Other: Voiding Method Toilet Urinal # Voids 5 2 # Bowel Movements 1 - Labs CBC & Chem 7: 11/25/24 04:20 11/25/24 04:20 Labs: Abnormal Lab Results - Last 24 Hours (Table) 11/25/24 11/25/24 Range/Units 04:20 04:20 WBC 11.57 H (4.50-10.00) X 10*3/uL Neutrophils # 7.77 H (1.80-7.70) X 10*3/uL Albumin/Globulin Ratio 1.58 L (1.60-3.17) Ratio
--- NOTE | 2024-11-25 18:14 | PN ---
PROGRESS NOTE DATE OF SERVICE: 11/25/2024 SUBJECTIVE: This is a 59-year-old gentleman who was admitted after colostomy reversal, is improving significantly. No chest pain. No palpitations. The patient is on Eliquis. OBJECTIVE: VITAL SIGNS: Pulse 73, blood pressure 134/70, and respirations 16. CHEST: Clear to auscultation. CARDIOVASCULAR: S1, S2. ABDOMEN: Soft. LABORATORY DATA: Reviewed. ASSESSMENT: 1. Status post reversal of colostomy and repair of parastomal hernia. 2. Elevated WBC. 3. History of perforated diverticulitis. 4. History of pulmonary embolism. 5. Hypertension. 6. History of nephrolithiasis. RECOMMENDATIONS: Recommend to continue current management and continue symptomatic treatment. Otherwise continue with DVT prophylaxis. Continue with Eliquis and closely follow with surgery. Further recommendations to follow. MMODL / IJN: [id number] /
[2024-11-26 08:39] LABS: Basophils # (A) 0.04 10*3/uL (0.00-0.10); Basophils % (A) 0.4 %; Eosinophils % (A) 3.5 %; HCT 46.5 % (39.6-50.0); Lymphocytes # (A) 2.38 10*3/uL (0.90-5.00); MCH 31.7 pg (27.0-32.0); MCHC 34.4 g/dL (32.0-37.0); MCV 92.3 fL (80.0-97.0); Mean Platelet Volume 9.4 fL (9.5-12.2); Neutrophils # (A) 7.56 10*3/uL (1.80-7.70); Neutrophils % (A) 66.8 %; Platelet Count 279 10*3/uL (140-440); RBC 5.04 10*6/uL (4.40-5.60); RDW 12.5 % (11.5-14.5); WBC 11.31 10*3/uL (4.50-10.00)
--- NOTE | 2024-11-26 08:47 | P.PN ---
Subjective This is a pleasant 59 years old male with past medical history of perforated diverticulitis was admitted under surgery team for elective colostomy reversal. Today's postop day #3. Patient still complains from abdominal pain with wound VAC and dressing in place in the central vertical wound in the lower abdomen. He trying to eat little bit, he has no appetite, currently on liquid diet. He has small bloody bowel movement yesterday No chest pain or dyspnea. No other new complaint WBC trended down to 11.5. Hemoglobin stable. Patient remains on Eliquis and Pepcid and pain medication Objective - Vital Signs Vital signs: Vital Signs Temp 98.3 F 11/26/24 06:35 Pulse 85 11/26/24 06:35 Resp 16 11/26/24 06:35 BP 110/70 11/26/24 06:35 Pulse Ox 91 L 11/26/24 06:35 FiO2 Intake & Output 11/25/24 11/26/24 11/26/24 18:59 06:59 18:59 Intake Total 3500 250 Output Total 300 Balance 3200 250 Intake: Oral 3500 250 Output: Post Void Residual 300 Other: Voiding Method Toilet Toilet # Voids 6 # Bowel Movements 1 - Exam GENERAL: The patient is alert and oriented x3, not in any acute distress. Well developed, well nourished. HEENT: Pupils are round and equally reacting to light. EOMI. No scleral icterus. No conjunctival pallor. Normocephalic, atraumatic. No pharyngeal erythema. No thyromegaly. CARDIOVASCULAR: S1 and S2 present. No murmurs, rubs, or gallops. PULMONARY: Chest is clear to auscultation, no wheezing , no crackles. -ABDOMEN: Soft, no lower abdominal tenderness, nondistended, normoactive bowel sounds. No palpable organomegaly. Surgical wound in the lower abdomen with a dressing in place, wound VAC in place MUSCULOSKELETAL: No joint swelling or deformity. EXTREMITIES: No cyanosis, clubbing, or pedal edema. NEUROLOGICAL: Gross neurological examination did not reveal any focal deficits. SKIN: No rashes. no petechiae. - Labs CBC & Chem 7: 11/26/24 08:21 11/25/24 04:20 Labs: Abnormal Lab Results - Last 24 Hours (Table) 11/26/24 Range/Units 08:21 WBC 11.31 H (4.50-10.00) 10*3/uL MPV 9.4 L (9.5-12.2) fL Eosinophils # 0.40 H (0.04-0.35) 10*3/uL Assessment and Plan Assessment: Perforated diverticulitis s/p elective colostomy reversal on 11/23 Hypertension History of PE after bowel resection on Eliquis History of kidney stone Plan: Continue with postop care Pain management Resume home medication Advance diet slowly per surgery team Follow-up wound VAC General Surgery primary team following closely as well My labs and medication were reviewed.. Continue same treatment. Continue with symptomatic treatment. Resume home medication. Monitor labs and vitals. DVT and GI prophylaxis. Further recommendations as per clinical course of the patient DVT prophylaxis: S Eliquis GI Prophylaxis: Pepcid and Protonix Prognosis is guarded
--- NOTE | 2024-11-26 11:13 | P.PN ---
Subjective Progress Note Date: 11/26/24 SURGICAL PROGRESS NOTE CHIEF COMPLAINT: History of perforated diverticulitis HISTORY OF PRESENT ILLNESS: Patient is postop day #3 status post reversal of colostomy and repair of parastomal hernia. Patient reports his pain is controlled. He denies any nausea or vomiting. He is having flatus and a smear of a bowel movement. He has been up and ambulating. Afebrile. No evidence of urinary retention on bladder scan. WBC is 11.3 PHYSICAL EXAM: VITAL SIGNS: Reviewed. GENERAL: Well-developed in no acute distress. HEENT: No sclera icterus. Extraocular movements grossly intact. Moist buccal mucosa. Head is atraumatic, normocephalic. ABDOMEN: Soft. Nondistended. Prevena wound VAC dressing intact NEUROLOGIC: Alert and oriented. Cranial nerves II through XII grossly intact. ASSESSMENT: 1. History of perforated diverticulitis 2. History of PE and DVT PLAN: -Advance diet to full liquids -Continue pain management -Encourage patient to ambulate -Encourage patient to use incentive spirometer -DVT prophylaxis Eliquis and GI prophylaxis Protonix Physician Supply Person note has been reviewed by physician. Signing provider agrees with the documented findings, assessment, and plan of care. Objective - Vital Signs Vital signs: Vital Signs Temp 98.3 F 11/26/24 06:35 Pulse 85 11/26/24 06:35 Resp 16 11/26/24 06:35 BP 110/70 11/26/24 06:35 Pulse Ox 91 L 11/26/24 06:35 FiO2 Intake & Output 11/25/24 11/26/24 11/26/24 18:59 06:59 18:59 Intake Total 3500 250 800 Output Total 300 Balance 3200 250 800 Intake: Oral 3500 250 800 Output: Post Void Residual 300 Other: Voiding Method Toilet Toilet # Voids 6 # Bowel Movements 1 - Labs CBC & Chem 7: 11/26/24 08:21 11/25/24 04:20 Labs: Abnormal Lab Results - Last 24 Hours (Table) 11/26/24 Range/Units 08:21 WBC 11.31 H (4.50-10.00) 10*3/uL MPV 9.4 L (9.5-12.2) fL Eosinophils # 0.40 H (0.04-0.35) 10*3/uL
--- NOTE | 2024-11-27 07:13 | P.PN ---
Subjective Progress Note Date: 11/27/24 Patient continues to improve. He feels well. On exam vital signs are stable. Abdomen is soft. Status post reversal of colostomy. Patient will remain on full liquid diet. Anticipate discharge home tomorrow. Objective - Vital Signs Vital signs: Vital Signs Temp 98.3 F 11/27/24 01:28 Pulse 82 11/27/24 01:28 Resp 17 11/27/24 01:28 BP 112/65 11/27/24 01:28 Pulse Ox 92 L 11/27/24 01:28 FiO2 Intake & Output 11/26/24 11/27/24 11/27/24 18:59 06:59 18:59 Intake Total 3520 118 Balance 3520 118 Intake: Oral 3520 118 Other: Voiding Method Toilet Toilet # Voids 5 1 # Bowel Movements 1 - Labs CBC & Chem 7: 11/26/24 08:21 11/25/24 04:20 Labs: Abnormal Lab Results - Last 24 Hours (Table) 11/26/24 Range/Units 08:21 WBC 11.31 H (4.50-10.00) 10*3/uL MPV 9.4 L (9.5-12.2) fL Eosinophils # 0.40 H (0.04-0.35) 10*3/uL
[2024-11-27 08:18] VITALS: RESP 16
--- NOTE | 2024-11-27 20:21 | P.PN ---
Subjective This is a pleasant 59 years old male with past medical history of perforated diverticulitis was admitted under surgery team for elective colostomy reversal. Today's postop day #3. Patient still complains from abdominal pain with wound VAC and dressing in place in the central vertical wound in the lower abdomen. He trying to eat little bit, he has no appetite, currently on liquid diet. He has small bloody bowel movement yesterday No chest pain or dyspnea. No other new complaint WBC trended down to 11.5. Hemoglobin stable. Patient remains on Eliquis and Pepcid and pain medication 11/27 Patient feels hungry He feels little better Bowel sounds present but sluggish He has little small bowel movement not a good 1 Surgery team are planning for possible discharge tomorrow No other new complaint Objective - Vital Signs Vital signs: Vital Signs Temp 97.8 F 11/27/24 07:20 Pulse 77 11/27/24 07:20 Resp 16 11/27/24 07:20 BP 118/65 11/27/24 07:20 Pulse Ox 92 L 11/27/24 07:20 FiO2 Intake & Output 11/26/24 11/27/24 11/27/24 18:59 06:59 18:59 Intake Total 3520 118 Balance 3520 118 Intake: Oral 3520 118 Other: Voiding Method Toilet Toilet # Voids 5 1 # Bowel Movements 1 - Exam GENERAL: The patient is alert and oriented x3, not in any acute distress. Well developed, well nourished. HEENT: Pupils are round and equally reacting to light. EOMI. No scleral icterus. No conjunctival pallor. Normocephalic, atraumatic. No pharyngeal erythema. No thyromegaly. CARDIOVASCULAR: S1 and S2 present. No murmurs, rubs, or gallops. PULMONARY: Chest is clear to auscultation, no wheezing , no crackles. -ABDOMEN: Soft, no lower abdominal tenderness, nondistended, normoactive bowel sounds. No palpable organomegaly. Surgical wound in the lower abdomen with a dressing in place, wound VAC in place MUSCULOSKELETAL: No joint swelling or deformity. EXTREMITIES: No cyanosis, clubbing, or pedal edema. NEUROLOGICAL: Gross neurological examination did not reveal any focal deficits. SKIN: No rashes. no petechiae. 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 Continue same treatment. Continue with symptomatic treatment. Resume home medication. Monitor labs and vitals. DVT and GI prophylaxis. Further recommendations as per clinical course of the patient DVT prophylaxis: S Eliquis GI Prophylaxis: Pepcid and Protonix Prognosis is guarded
[2024-11-28 08:12] VITALS: BP 116/68; PULSE 96; TEMP 97.8
--- NOTE | 2024-11-28 09:49 | P.DS ---
Providers Date of admission: 11/23/24 05:43 Expected date of discharge: 11/28/24 Attending physician: Juvencio Vasquez Consults: 11/23/24 09:34 Consult Physician Routine Consulting Provider: Arden Stover Consult Reason/Comments: Medical management Do you want consulting provider notified?: Yes 11/23/24 09:36 Consult Physician Routine Consulting Provider: Earl Benz Consult Reason/Comments: History of pulmonary embolus Do you want consulting provider notified?: Yes Primary care physician: Ayesha Lainez [facility] Course: Is a 59-year-old male who underwent reversal of colostomy. Patient's postoperative stay was unremarkable. Procedures: Reversal of colostomy Patient Condition at Discharge: Good Plan - Discharge Summary Discharge Rx Participant: No New Discharge Prescriptions: New Docusate [Colace] 100 mg PO BID #20 capsule Ibuprofen [Motrin] 600 mg PO Q6HR PRN #40 tab PRN Reason: Pain oxyCODONE HCL [OxyIR] 5 mg PO Q6H PRN 3 Days #10 tab PRN Reason: Pain Acetaminophen Tab [Tylenol] 650 mg PO Q6H #30 tab No Action lisinopriL [Zestril] 20 mg PO BID Acetaminophen Tab [Tylenol] 1,000 mg PO Q6HR PRN #30 tablet PRN Reason: Pain Apixaban [Eliquis Starter Pack (for VTE)] 5 mg PO BID Discharge Medication List lisinopriL [Zestril] 20 mg PO BID 06/29/24 [History] Acetaminophen Tab [Tylenol] 1,000 mg PO Q6HR PRN #30 tablet 07/03/24 [Rx] Apixaban [Eliquis Starter Pack (for VTE)] 5 mg PO BID 11/18/24 [History] Acetaminophen Tab [Tylenol] 650 mg PO Q6H #30 tab 11/28/24 [Rx] Docusate [Colace] 100 mg PO BID #20 capsule 11/28/24 [Rx] Ibuprofen [Motrin] 600 mg PO Q6HR PRN #40 tab 11/28/24 [Rx] oxyCODONE HCL [OxyIR] 5 mg PO Q6H PRN 3 Days #10 tab 11/28/24 [Rx] Follow up Appointment(s)/Referral(s): Marko Sims [STAFF PHYSICIAN] - 01/14/25 (Please call to make apptment) Juvencio Vasquez MD [STAFF PHYSICIAN] - 1 Week Discharge Disposition: HOME SELF-CARE
== END 2024-11-28 11:05 | disposition home or self-care (01) | DRG 330 ==
LOC: 2ORMAIN 05:43 → 5NMEDONC 09:28
PROVIDERS: ADMIT Surgery; ATTEND Surgery
PROC: 0WQF0ZZ Repair Abdominal Wall, Open Approach (ICD-10-PCS; 2024-11-23)
PROC: 0DBN0ZZ Excision of Sigmoid Colon, Open Approach (ICD-10-PCS; principal; 2024-11-23 07:30)
DX: Z43.3 Encounter for attention to colostomy (principal); K57.20 Diverticulitis of large intestine with perforation and abscess without bleeding; I10 Essential (primary) hypertension; K57.32 Diverticulitis of large intestine without perforation or abscess without bleeding; F17.210 Nicotine dependence, cigarettes, uncomplicated; K43.5 Parastomal hernia without obstruction or gangrene; Z79.01 Long term (current) use of anticoagulants; Z79.899 Other long term (current) drug therapy; Z86.711 Personal history of pulmonary embolism; Z86.718 Personal history of other venous thrombosis and embolism; Z87.442 Personal history of urinary calculi; Z91.041 Radiographic dye allergy status; Z91.013 Allergy to seafood
CPT/HCPCS: 64468; 80048; 80053; 85025; 88304

== ENCOUNTER 2024-12-03 19:18 | Emergency (ER) | payer BC ==
[2024-12-03 19:28] VITALS: RESP 18
--- NOTE | 2024-12-03 20:06 | ED ---
Abdominal Pain HPI - General Chief Complaint: Abdominal Pain Stated Complaint: Abd Pain-post surgery Time Seen by Provider: 12/03/24 19:29 Source: patient, RN notes reviewed Mode of arrival: ambulatory Limitations: no limitations - History of Present Illness Initial Comments: This is a 59 year old male who presents to the emergency department for abdomin al pain. Patient had surgery for perforated diverticulitis with Dr. Vasquez in June 2024. He had an elective reverse colostomy 10 days ago. States that he had a wound VAC initially and he removed the wound VAC pad 3 days ago. Afterwards he fell like he was having severe pain over his abdomen, particularly around the staple sites. He has also noticed some drainage from the incisions. Denies any nausea/vomiting or fevers/chills. He is having normal bowel movements. He is supposed to get his cathy out on 12/07, and is concerned about it being painful like it was the first time. States that he was prescribed oxycodone postoperatively and has 2 left that he is saving for that upcoming appointment. MD Complaint: abdominal pain - Related Data Home Medications Medication Instructions Recorded Confirmed lisinopriL [Zestril] 20 mg PO BID 06/29/24 11/23/24 Apixaban [Eliquis Starter Pack 5 mg PO BID 11/18/24 11/23/24 (for VTE)] Previous Rx's Medication Instructions Recorded Acetaminophen Tab [Tylenol] 1,000 mg PO Q6HR PRN #30 tablet 07/03/24 Acetaminophen Tab [Tylenol] 650 mg PO Q6H #30 tab 11/28/24 Docusate [Colace] 100 mg PO BID #20 capsule 11/28/24 Ibuprofen [Motrin] 600 mg PO Q6HR PRN #40 tab 11/28/24 oxyCODONE HCL [OxyIR] 5 mg PO Q6H PRN 3 Days #10 tab 11/28/24 Mupirocin Calcium 2% Cream 1 applic TOPICAL TID #15 gm 12/03/24 [Bactroban 2% Cream] oxyCODONE-APAP 7.5-325MG [Percocet 1 tab PO Q6HR PRN 3 Days #12 tab 12/03/24 7.5-325 mg] Allergies Allergy/AdvReac Type Severity Reaction Status Date / Time iodine Allergy Anaphylaxis Verified 12/03/24 19:25 shellfish derived Allergy Rash/Hives Verified 12/03/24 19:25 Review of Systems ROS Statement: Those systems with pertinent positive or pertinent negative responses have been documented in the HPI. ROS Other: All systems not noted in ROS Statement are negative. Past Medical History Past Medical History: Hypertension, Pulmonary Embolus (PE) Additional Past Medical History / Comment(s): kidney stones, diverticulitis, had PE after bowel surgery History of Any Multi-Drug Resistant Organisms: None Reported Past Surgical History: Bowel Resection, Orthopedic Surgery Additional Past Surgical History / Comment(s): DENTAL, R hand surgery. colostomy, colostomy reversal 11/2024 Past Anesthesia/Blood Transfusion Reactions: No Reported Reaction Additional Past Anesthesia/Blood Transfusion Reaction / Comment(s): never had blood transfusion Past Psychological History: No Psychological Hx Reported Smoking Status: Current every day smoker Past Alcohol Use History: None Reported Past Drug Use History: None Reported - Past Family History Father Family Medical History: No Reported History General Exam Limitations: no limitations General appearance: alert, in no apparent distress Head exam: Present: atraumatic, normocephalic, normal inspection Respiratory exam: Present: normal lung sounds bilaterally. Absent: respiratory distress, wheezes, rales, rhonchi, stridor Cardiovascular Exam: Present: regular rate, normal rhythm GI/Abdominal exam: Present: other (Abdominal incisions are intact with some serosanguineous drainage. Mild generalized tenderness.) Neurological exam: Present: alert, oriented X3, CN II-XII intact Psychiatric exam: Present: normal affect, normal mood Course Vital Signs 12/03/24 12/03/24 12/03/24 19:25 21:29 22:16 Temperature 98.1 F 98.4 F Pulse Rate 89 57 L 57 L Respiratory 18 18 18 Rate Blood Pressure 119/73 139/87 121/80 O2 Sat by Pulse 96 98 98 Oximetry Medical Decision Making - Medical Decision Making This is a 59 year old male who presents to the emergency department for abdominal pain. Was pt. sent in by a medical professional or institution? @ -No Did you speak to anyone other than the patient for history? @ -No Did you review nursing and triage notes? @ -Yes, and I agree, it is accurate with regards to the patient's symptoms. Were old charts reviewed? @ -No Differential Diagnosis? @ -Differential Abdominal Pain Men: Appendicitis, cholecystitis, diverticulosis, ischemic bowel, pancreatitis, hepatitis, UTI, gastroenteritis, AAA, incarcerated hernia, bowel obstruction, constipation, inflammatory bowel, hepatitis, peptic ulcer disease, splenic infarction, perforated viscus, testicular torsion, this is not meant to be an all-inclusive list EKG interpreted by me (3pts min.)? @ -Not obtained X-rays interpreted by me (1pt min.)? @ -Not obtained CT interpreted by me (1pt min.)? @ -CT scan of the abdomen and pelvis obtained. My interpretation identifies no bowel wall thickening or free air. U/S interpreted by me (1pt. min.)? @ -Not obtained What testing was considered but not performed? (CT, X-rays, U/S, labs)? Why? @ -None What meds were considered but not given? Why? @ -None Did you discuss the management of the patient with other professionals? @ -No Did you reconcile home meds? @ -No Was smoking cessation discussed for >3mins.? @ -I discussed smoking cessation for greater than 3 minutes. The risk of smoking were discussed with the patient including but not limited to risks of cancer, stroke, coronary artery disease and COPD. Also discussed with patient were multiple methods of quitting smoking. Lastly we discussed the financial cost of smoking. Was critical care preformed (if so, how long)? @ -No Were there social determinants of health that impacted care today? How? (Homelessness, low income, unemployed, alcoholism, drug addiction, transportation, low edu. Level, literacy, decrease access to med. care, snf, rehab)? @ -No Was there de-escalation of care discussed even if they declined? (Discuss DNR or withdrawal of care, Hospice)? @ -No What co-morbidities impacted this encounter? (DM, HTN, Smoking, COPD, CAD, Cancer, CVA, Hep., AIDS, mental health diagnosis, sleep apnea, morbid obesity)? @ -Smoking Was patient admitted / discharged? @ -Discharged. Lab work unremarkable. CT scan of the abdomen and pelvis obtained revealing no acute process. The cathy on his abdomen were intact. He had some scabbing and mild serosanguineous drainage. However, in the sites did not appear infected. Patient evaluated at bedside by ED attending, Dr. Sanderson as well. Pain was treated in the emergency department. Bacitracin ointm ent was applied to see if that eases any discomfort as well as helps with infection prevention. He was also given a refill on his oxycodone so that he does not have to save the other ones for the staple removal and he is able to control his pain at home over the next couple of days. Advised he contact the general surgery office Friday morning prior to staple removal the following day to see if he can use something like lidocaine topically before staple removal to ease the discomfort. Patient discharged home in stable condition. Case discussed with ED attending Dr. Sanderson. Return precautions reviewed in depth, the patient is instructed to return to the emergency department with any new, worsening, or concerning symptoms. Patient verbalized understanding. Undiagnosed new problem with uncertain prognosis? @ -None Drug Therapy requiring intensive monitoring for toxicity (Heparin, Nitro, Insulin, Cardizem)? @ -None Were any procedures done? @ -None Diagnosis/symptom? @ -Abdominal pain, status post reverse colostomy Acute, or Chronic, or Acute on Chronic? @ -Acute Uncomplicated (without systemic symptoms) or Complicated (systemic symptoms)? @ -Uncomplicated Side effects of treatment? @ -None Exacerbation, Progression, or Severe Exacerbation] @ -Not applicable Poses a threat to life or bodily function? @ -No - Lab Data Result diagrams: 12/03/24 20:17 12/03/24 20:17 Lab Results 12/03/24 12/03/24 12/03/24 Range/Units 20:17 20:17 20:17 WBC 9.07 (4.50-10.00) 10*3/uL RBC 4.62 (4.40-5.60) 10*6/uL Hgb 14.5 (13.0-17.0) g/dL Hct 42.7 (39.6-50.0) % MCV 92.4 (80.0-97.0) fL MCH 31.4 (27.0-32.0) pg MCHC 34.0 (32.0-37.0) g/dL Plt Count 373 (140-440) 10*3/uL MPV 9.8 (9.5-12.2) fL Immature Gran % (Auto) 0.3 % Neutrophils % 51.8 % Lymphocytes % 33.6 % Monocytes % 7.9 % Eosinophils % 5.6 % Basophils % 0.8 % Immature Gran # 0.03 (0.00-0.04) 10*3/uL Neutrophils # 4.69 (1.80-7.70) 10*3/uL Lymphocytes # 3.05 (0.90-5.00) 10*3/uL Monocytes # 0.72 (0.20-1.00) 10*3/uL Eosinophils # 0.51 H (0.04-0.35) 10*3/uL Basophils # 0.07 (0.00-0.10) 10*3/uL PT (10.0-12.5) sec INR (<1.2) APTT (22.0-30.0) sec Sodium 141 (137-145) mmol/L Potassium 3.9 (3.5-5.1) mmol/L Chloride 112 H (98-107) mmol/L Carbon Dioxide 22 (22-30) mmol/L Anion Gap 7 mmol/L BUN 28 H (9-20) mg/dL Creatinine 0.84 (0.66-1.25) mg/dL Est GFR (CKD-EPI)AfAm >90 (>60 ml/min/1.73 sqM) Est GFR (CKD-EPI)NonAf >90 (>60 ml/min/1.73 sqM) Glucose 119 H (74-99) mg/dL Plasma Lactic Acid Quinten 1.1 (0.7-2.0) mmol/L Calcium 9.4 (8.4-10.2) mg/dL Total Bilirubin 0.3 (0.2-1.3) mg/dL AST 17 (17-59) U/L ALT 17 (4-49) U/L Alkaline Phosphatase 78 (38-126) U/L Total Protein 6.3 (6.3-8.2) g/dL Albumin 3.7 (3.5-5.0) g/dL 12/03/24 Range/Units 20:17 WBC (4.50-10.00) 10*3/uL RBC (4.40-5.60) 10*6/uL Hgb (13.0-17.0) g/dL Hct (39.6-50.0) % MCV (80.0-97.0) fL MCH (27.0-32.0) pg MCHC (32.0-37.0) g/dL Plt Count (140-440) 10*3/uL MPV (9.5-12.2) fL Immature Gran % (Auto) % Neutrophils % % Lymphocytes % % Monocytes % % Eosinophils % % Basophils % % Immature Gran # (0.00-0.04) 10*3/uL Neutrophils # (1.80-7.70) 10*3/uL Lymphocytes # (0.90-5.00) 10*3/uL Monocytes # (0.20-1.00) 10*3/uL Eosinophils # (0.04-0.35) 10*3/uL Basophils # (0.00-0.10) 10*3/uL PT 9.9 L (10.0-12.5) sec INR 0.9 (<1.2) APTT 22.5 (22.0-30.0) sec Sodium (137-145) mmol/L Potassium (3.5-5.1) mmol/L Chloride (98-107) mmol/L Carbon Dioxide (22-30) mmol/L Anion Gap mmol/L BUN (9-20) mg/dL Creatinine (0.66-1.25) mg/dL Est GFR (CKD-EPI)AfAm (>60 ml/min/1.73 sqM) Est GFR (CKD-EPI)NonAf (>60 ml/min/1.73 sqM) Glucose (74-99) mg/dL Plasma Lactic Acid Quinten (0.7-2.0) mmol/L Calcium (8.4-10.2) mg/dL Total Bilirubin (0.2-1.3) mg/dL AST (17-59) U/L ALT (4-49) U/L Alkaline Phosphatase (38-126) U/L Total Protein (6.3-8.2) g/dL Albumin (3.5-5.0) g/dL - Radiology Data Radiology results: report reviewed, image reviewed Disposition Clinical Impression: Abdominal pain, History of colostomy reversal, Nicotine dependence Disposition: HOME SELF-CARE Instructions (If sedation given, give patient instructions): Abdominal Pain (ED), Staple Care (ED) Additional Instructions: Return to the emergency department with any new, worsening, or concerning symptoms. Take the oxycodone up to every 6 hours for pain control. You can try applying the bacitracin ointment up to 3 times daily over the incisions. You can also call the office Friday morning to see if they would let you put topical lidocaine over the incisions before removal. This can be purchased [email or web address] if they are agreeable to it. Follow-up with general surgery as scheduled. Prescriptions: Mupirocin Calcium 2% Cream [Bactroban 2% Cream] 1 applic TOPICAL TID #15 gm oxyCODONE-APAP 7.5-325MG [Percocet 7.5-325 mg] 1 tab PO Q6HR PRN 3 Days #12 tab PRN Reason: Pain Is patient prescribed a controlled substance at d/c from ED?: No Referrals: Ayesha Lainez DO [Primary Care Provider] - 1-2 days Time of Disposition: 21:59
[2024-12-03 20:24] LABS: Basophils # (A) 0.07 10*3/uL (0.00-0.10); Basophils % (A) 0.8 %; Eosinophils # (A) 0.51 10*3/uL (0.04-0.35); Eosinophils % (A) 5.6 %; HCT 42.7 % (39.6-50.0); HGB 14.5 g/dL (13.0-17.0); Lymphocytes # (A) 3.05 10*3/uL (0.90-5.00); Lymphocytes % (A) 33.6 %; MCH 31.4 pg (27.0-32.0); MCV 92.4 fL (80.0-97.0); Mean Platelet Volume 9.8 fL (9.5-12.2); Monocytes # (A) 0.72 10*3/uL (0.20-1.00); Monocytes % (A) 7.9 %; Neutrophils # (A) 4.69 10*3/uL (1.80-7.70); Neutrophils % (A) 51.8 %; Platelet Count 373 10*3/uL (140-440); RBC 4.62 10*6/uL (4.40-5.60); RDW 12.1 % (11.5-14.5); WBC 9.07 10*3/uL (4.50-10.00)
[2024-12-03] MEDS: FAMOTIDINE 20 MG/2 ML VIAL IV STA (20:27)
[2024-12-03] MEDS: SODIUM CHLORIDE 0.9% 1,000 ML IV ONE (20:27)
[2024-12-03] MEDS: diphenhydrAMINE 50 MG/ML 1 ML VIAL IVP STA (20:27)
[2024-12-03] MEDS: HYDROmorphone 1 MG/ML 1 ML SYRINGE IVP STA (20:28)
[2024-12-03] MEDS: methylPREDNISolone SOD SUCCI 125 MG/2 ML VIAL IV STA (20:28)
[2024-12-03 20:36] LABS: AST 17 U/L (17-59); African American GFR (CKD) >90 (>60 ml/min/1.73 sqM); Albumin 3.7 g/dL (3.5-5.0); Anion Gap 7 mmol/L; Blood Urea Nitrogen 28 mg/dL (9-20); Calcium 9.4 mg/dL (8.4-10.2); Carbon Dioxide 22 mmol/L (22-30); Chloride 112 mmol/L (98-107); Glucose 119 mg/dL (74-99); Non-African American GFR(CKD) >90 (>60 ml/min/1.73 sqM); Potassium 3.9 mmol/L (3.5-5.1); Sodium 141 mmol/L (137-145); Total Bilirubin 0.3 mg/dL (0.2-1.3); Total Protein 6.3 g/dL (6.3-8.2)
[2024-12-03 20:37] LABS: ALT 17 U/L (4-49); Alkaline Phosphatase 78 U/L (38-126)
[2024-12-03 20:41] LABS: INR 0.9 (<1.2); Partial Thromboplastin Time 22.5 sec (22.0-30.0); Prothrombin Time 9.9 sec (10.0-12.5)
--- NOTE | 2024-12-03 21:25 | CT ---
EXAMINATION TYPE: CT abdomen pelvis w con DATE OF EXAM: 12/03/2024 8:59 PM COMPARISON: None. CLINICAL INDICATION: Male, 59 years old with history of Postop abdominal pain, pain post colostomy re versal TECHNIQUE: Axial images were obtained from above the diaphragm to the pubic rami in the axial plane a t 5 mm thick sections. Reconstructed images are reviewed on the computer in the coronal plane. CONTRAST: 100 mL of Isovue 300. Study performed without Oral Contrast DLP: 1038 mGycm, Automated exposure control for dose reduction was used. FINDINGS: Limited CT sections are obtained the lung bases. Minimal infiltrate within the right middle lobe at the diaphragm. Example images series 201 image 2. Lung bases are otherwise clear. CT ABDOMEN: Liver: Normal Spleen: Normal Pancreas: Normal Adrenal glands: The adrenal glands are normal. Gallbladder: Normal Kidneys: No masses are evident. No hydronephrosis is present. No cysts are present. Delayed images were obtained through the kidneys, which remain unremarkable. Aorta: Vascular calcification is within the aorta. Inferior vena cava: Normal. CT PELVIS: No free air is evident. No abscess formation is identified. No suspicious fluid collection s. Loops of bowel within the abdomen and pelvis are normal. This study is without oral contrast limi ts bowel evaluation. Anastomosis at the proximal sigmoid colon is evident. Minimal inflammatory evangelista e adjacent which can be postsurgical in nature. Appendix: Normal as visualized. Urinary bladder: Normal. Genitourinary structures: Prostate is normal Osseous structures: No suspicious lytic or sclerotic lesions. IMPRESSION: 1. No suspicious acute postsurgical changes. [facility], , 12/03/2024 9:22 PM
[2024-12-03 21:30] VITALS: PULSE 57
[2024-12-03] MEDS: HYDROmorphone 0.5 MG/0.5 ML SYRINGE IVP STA (21:43)
[2024-12-03] MEDS: MUPIROCIN 2% OINT 22 GM TUBE TOPICAL STA (22:12)
[2024-12-03] MEDS: oxyCODONE-APAP 5-325MG 1 EACH TAB PO STA (22:13)
[2024-12-03 22:16] VITALS: BP 121/80; TEMP 98.4
== END 2024-12-03 22:16 | disposition home or self-care (01) ==
LOC: EC 19:18
DX: R10.9 Unspecified abdominal pain (principal); F17.200 Nicotine dependence, unspecified, uncomplicated; Z93.3 Colostomy status; Z88.8 Allergy status to other drugs, medicaments and biological substances; Z91.013 Allergy to seafood
CPT/HCPCS: 36415; 80053; 83605; 85025; 85610; 85730; 74177; 99284; 96374; 96375; 96361; J1200; J1171 ×2; Q9967; J2919; J1308